=== PATIENT | male | born 1940 | race Caucasian/White ===

== ENCOUNTER 2016-03-10 13:01 | Observation (INO) | payer OTHER ==
[2016-03-10] MEDS ORDERED: NS 1,000 ML IV ONE ×2 (13:36→15:03)
[2016-03-10 13:41] LABS: % IMMATURE GRANULYOCYTES 0.8 % (0.0-1.1); ABSOLUTE IMMATURE GRANULOCYTES 0.06 10^3/uL (0.00-0.10); ADD DIFF? NO; ADD MORPH? NO; ADD SCAN? NO; ATYPICAL LYMPHOCYTE FLAG 0 (0-99); FRAGMENT RBC FLAG 0 (0-99); HEMATOCRIT 38.1 % (40.0-51.0); HEMOGLOBIN 12.8 g/dL (13.7-17.5); LEFT SHIFT FLG 0 (0-99); LIPEMIA HEMOLYSIS FLAG 80 (0-99); MEAN CELL HEMOGLOBIN 32.2 pg (27.9-34.1); MEAN CELL HEMOGLOBIN CONCENTR. 33.6 g/dL (32.4-36.7); PLATELET CLUMPS FLAG 10 (0-99); PLATELET COUNT 90 10^3/uL (150-400); RED BLOOD CELL COUNT 3.97 10^6/uL (4.40-6.38)
[2016-03-10 14:06] LABS: ALANINE AMINOTRANSFERASE 53 IU/L (21-72); ALBUMIN 3.2 g/dL (3.5-5.0); ALKALINE PHOSPHATASE 49 IU/L (38-126); ANION GAP 8 mEq/L (8-16); ASPARTATE AMINOTRANSFERASE 45 IU/L (17-59); BILIRUBIN-CONJUGATED 0.3 mg/dL (0.0-0.5); BILIRUBIN-UNCONJUGATED 0.7 mg/dL (0.0-1.1); CARBON DIOXIDE 24 mEq/l (22-31); CHLORIDE 103 mEq/L (97-110); CREATININE 1.4 mg/dL (0.7-1.3); GLOMERULAR FILTRATION RATE 50; GLUCOSE 127 mg/dL (70-100); POTASSIUM 4.2 mEq/L (3.5-5.2); SODIUM 135 mEq/L (134-144); TOTAL PROTEIN 6.3 g/dL (6.3-8.2)
--- NOTE | 2016-03-10 14:19 | EDPHY ---
H & P Stated Complaint: nausea/weakness/diarrhea Source: Patient, Family Exam Limitations: No limitations - Personal History Current Tetanus/Diphtheria Vaccine: Yes - Medical/Surgical History Hx Asthma: No Hx Chronic Respiratory Disease: No Hx Diabetes: No Hx Cardiac Disease: No Hx Renal Disease: No Hx Cirrhosis: No Hx Alcoholism: No Hx HIV/AIDS: No Hx Splenectomy or Spleen Trauma: No Other PMH: COLECTOMY DUE [place] CA, RA, MULTIPLE INGUINAL HERNIAS, L3-L4 SPINAL INFUSION,DVT AND PE - Social History Smoking Status: Former smoker HPI/ROS: CHIEF COMPLAINT: Chills, weakness, diarrhea HISTORY OF PRESENT ILLNESS: sudden onset of chills 2 days ago. Since then he has had intermittent chills, weakness, myalgia and diarrhea that started last night. The diarrhea is profuse to him and watery. No fever. No abdominal pain. No headache or neck pain. Some cough. Multiple coworkers with positive flu test recently. He has no chest pain or shortness of breath. No joint pain or stiffness. He does have a history of colon cancer remotely, with approximately half of his colon removed. No bloody stools. No constipation. No other associated complaints or modifying factors. PREVIOUS ABDOMINAL SURGERIES/DIAGNOSES: Remote colon cancer status post partial colectomy NPO: last night REVIEW OF SYSTEMS: Ten systems reviewed and are negative unless otherwise noted in the HPI EXAMINATION: General Appearance: Alert, no distress Head: normocephalic, atraumatic Eyes: Pupils equal and round, no conjunctival pallor or injection ENT, Mouth: Mucous membranes moist Neck: Normal inspection, supple, non-tender Respiratory: Lungs are clear to auscultation Cardiovascular: Regular rate and rhythm Gastrointestinal: Abdomen is soft and nontender. No tympany. No rigidity. Non- acute abdomen. Back: non-tender, no bony abnormalities Neurological: A&O, nonfocal, normal gait Skin: Warm and dry, no rash Extremities: Nontender, no pedal edema Psychiatric: Mood and affect normal DIFFERENTIAL DIAGNOSES: Including but not limited to dehydration, influenza, diarrhea, weakness, viral illness, gastroenteritis MDM: 2:00 p.m. weakness with chills, body aches, and diarrhea. This was 2-3 days in duration. The patient's vital signs are well within normal limits. He is in no acute distress. He has minimal cough. Lungs are clear in all [place]. Laboratory studies and flu test are pending at this time 3:00 p.m. labs are positive for evidence of dehydration as well as influenza A. Is feeling no better than time of arrival. We are administering a 2nd L of IV fluid. He continues to have diarrhea, but he is unable to make it to the bedside commode to provide a sample. Vital signs are stable but he is not feeling any better at this time. Continue IV fluid resuscitation and re- evaluation 4:28 p.m. I have re-evaluated the patient. He is actually feeling worse on time of admission to the emergency department. We have administered IV fluid is not improved. Vital signs remained stable and he is in no acute distress, but I will proceed with admission for IV fluid resuscitation and further care. 4:30 p.m. I have discussed the case with the hospitalist, and Dr. Perales will admit the patient to her service. Patient and spouse are comfortable this plan, and we are still attempting to obtain a stool sample for a GI pathogen profile. ED Precautions: Worsening pain. Fever. Bloody stools. Bloody emesis. Constipation or diarrhea. SUPERVISION:This patient was independently evaluated without the aide of supervising physician. (Keron Mullins) Constitutional: Initial Vital Signs Temperature (C) 37.1 C 03/10/16 13:08 Heart Rate 78 03/10/16 13:08 Respiratory Rate 18 03/10/16 13:08 Blood Pressure 114/66 03/10/16 13:08 O2 Sat (%) 93 03/10/16 13:08 O2 Delivery Mode Nasal Cannula O2 (L/minute) 2 Allergies/Adverse Reactions: No Allergies [NKDA] Allergy (Verified 09/22/15 16:12) Home Medications: Medication Instructions Recorded Leflunomide [Arava 20 mg (*)] 20 mg PO DAILY 06/27/14 Lisinopril [Zestril 10 mg (*)] 10 mg PO DAILY 06/27/14 Temazepam [Restoril 15 MG (*)] 15 mg PO HS PRN 06/27/14 Terazosin HCl [Hytrin 2 MG (*)] 6 mg PO HS 06/27/14 Methotrexate Sodium/Pf 0 mg IJ SA@0800 06/28/14 [Methotrexate 25 mg/ml Vial] Herbals/Supplements -Info Only 1 ea PO DAILY 09/22/15 Albuterol Hfa Anes Only [Proair 1 - 2 puffs IH QID PRN 03/10/16 Hfa Icu (*)] Finasteride [Proscar 5 MG (*)] 5 mg PO DAILY 03/10/16 predniSONE 4 mg PO DAILY 03/10/16 predniSONE 10 mg PO DAILY 03/10/16 Medical Decision Making ED Course/Re-evaluation: A I did not see this patient while he was in the emergency department. However his care was discussed with the PA while the patient was in the department. I agree with treatment plan and management (Demetri White) - Data Points Laboratory Results: Laboratory Results 03/10/16 13:37 03/10/16 13:30 03/10/16 03/10/16 03/10/16 14:25 13:37 13:30 WBC 7.42 10^3/uL (3.80-9.50) RBC 3.97 L 10^6/uL (4.40-6.38) Hgb 12.8 L g/dL (13.7-17.5) Hct 38.1 L % (40.0-51.0) MCV 96.0 fL (81.5-99.8) MCH 32.2 pg (27.9-34.1) MCHC 33.6 g/dL (32.4-36.7) RDW 18.0 H % (11.5-15.2) Plt Count 90 L 10^3/uL (150-400) MPV 11.0 fL (8.7-11.7) Neut % (Auto) 85.7 H % (39.3-74.2) Lymph % (Auto) 8.2 L % (15.0-45.0) Lamar % (Auto) 5.0 % (4.5-13.0) Eos % (Auto) 0.0 L % (0.6-7.6) Baso % (Auto) 0.3 % (0.3-1.7) Nucleat RBC Rel Count 0.0 % (0.0-0.2) Absolute Neuts (auto) 6.36 10^3/uL (1.70-6.50) Absolute Lymphs (auto) 0.61 L 10^3/uL (1.00-3.00) Absolute Monos (auto) 0.37 10^3/uL (0.30-0.80) Absolute Eos (auto) 0.00 L 10^3/uL (0.03-0.40) Absolute Basos (auto) 0.02 10^3/uL (0.02-0.10) Absolute Nucleated RBC 0.00 10^3/uL (0-0.01) Immature Gran % 0.8 % (0.0-1.1) Immature Gran # 0.06 10^3/uL (0.00-0.10) Sodium 135 mEq/L (134-144) Potassium 4.2 mEq/L (3.5-5.2) Chloride 103 mEq/L (97-110) Carbon Dioxide 24 mEq/l (22-31) Anion Gap 8 mEq/L (8-16) BUN 28 H mg/dL (7-23) Creatinine 1.4 H mg/dL (0.7-1.3) Estimated GFR 50 Glucose 127 H mg/dL (70-100) Calcium 8.0 L mg/dL (8.5-10.4) Total Bilirubin 1.0 mg/dL (0.1-1.4) Conjugated Bilirubin 0.3 mg/dL (0.0-0.5) Unconjugated Bilirubin 0.7 mg/dL (0.0-1.1) AST 45 IU/L (17-59) ALT 53 IU/L (21-72) Alkaline Phosphatase 49 IU/L (38-126) Total Protein 6.3 g/dL (6.3-8.2) Albumin 3.2 L g/dL (3.5-5.0) Lipase 45.0 IU/L (23-300) Urine Color YELLOW Urine Appearance HAZY Urine pH 5.0 (5.0-7.5) Ur Specific [place] 1.019 (1.002-1.030) Urine Protein 1+ H (NEGATIVE) Urine Ketones 1+ H (NEGATIVE) Urine Blood 2+ H (NEGATIVE) Urine Nitrate NEGATIVE (NEGATIVE) Urine Bilirubin NEGATIVE (NEGATIVE) Urine Urobilinogen NEGATIVE EU (0.2-1.0) Ur Leukocyte Esterase NEGATIVE (NEGATIVE) Urine RBC 5-10 H /hpf (0-3) Urine WBC 1-3 /hpf (0-3) Ur Epithelial Cells TRACE /lpf (NONE-1+) Urine Bacteria TRACE H /hpf (NONE SEEN) Urine Mucus TRACE /lpf (NONE-1+) Ur Culture Indicated? NOT INDICATED (NI) Urine Glucose NEGATIVE (NEGATIVE) Influenza Typ A,B (DFA) POSITIVE FOR FLU A H (NEGATIVE) Medications Given: Discontinued Medications Sodium Chloride (Ns) 1,000 mls @ 0 mls/hr IV ONCE ONE PRN Reason: Wide Open Stop: 03/10/16 13:37 Last Admin: 03/10/16 13:37 Dose: 1,000 mls Sodium Chloride (Ns) 1,000 mls @ 0 mls/hr IV ONCE ONE PRN Reason: Wide Open Stop: 03/10/16 15:04 Last Admin: 03/10/16 15:05 Dose: 1,000 mls Departure - Departure Disposition: [facility] Acute Clinical Impression: Diarrhea, Diarrhea with dehydration Condition: Good
[2016-03-10 14:46] LABS: COLOR YELLOW; LEUKOCYTE ESTERASE,URINE NEGATIVE (NEGATIVE); NITRITE,URINE NEGATIVE (NEGATIVE)
[2016-03-10 14:50] LABS: BACTERIA TRACE /hpf (NONE SEEN); MUCUS TRACE /lpf (NONE-1+)
[2016-03-10] MEDS ORDERED: ONDANSETRON 4 MG/2 ML VIAL IVP PRN (18:57)
[2016-03-10] MEDS ORDERED: ACETAMINOPHEN 325 MG TAB PO PRN (18:57)
[2016-03-10] MEDS ORDERED: NS 1,000 ML IV SCH (19:00)
[2016-03-10] MEDS: OSELTAMIVIR PHOSPHATE 75 MG CAP PO SCH (19:43)
[2016-03-10] MEDS ORDERED: TEMAZEPAM 15 MG CAP PO PRN (19:45)
[2016-03-10] MEDS ORDERED: HYDROCORTISONE 100 MG/2 ML VIAL IVP ONE (19:46)
--- NOTE | 2016-03-10 20:09 | GHP ---
[f rep st] HISTORY AND PHYSICAL DATE OF ADMISSION: 03/10/2016 CHIEF COMPLAINT: Chills and diarrhea. HISTORY: The patient is a 75-year-old male who 2 days ago developed very acute onset of severe chill s. He had myalgias. His main symptom is a profuse, watery, uncontrolled diarrhea. He has been inco ntinent. He has a little bit of cough. No abdominal pain. Many of his coworkers have recently been testing flu positive. PAST MEDICAL HISTORY: 1. Rheumatoid arthritis. 2. COPD. 3. Hypertension. 4. Colon cancer status post resection. PAST SURGICAL HISTORY: Ventral hernia repair. MEDICATIONS: Please see computer record for full detailed list. ALLERGIES: No known drug allergies. SOCIAL HISTORY: Smoker in the past but not currently. No alcohol. 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 Lives with his . REVIEW OF SYSTEMS: Complete review of systems obtained. Review of systems is negative on constituti onal, HEENT, GI, pulmonary, cardiovascular, , hematology, skin, musculoskeletal, endocrine, psych, except for positives and negatives as in HPI. FAMILY HISTORY: Reviewed, noncontributory to presenting complaint. PHYSICAL EXAMINATION: GENERAL: Well-developed, well-nourished male in no acute distress. VITAL SIG NS: Temperature is 37.1, pulse 68, blood pressure 132/62, saturating 93% on room air. EYE: Normal conjunctivae. Pupils equal and reactive to light. ENT: Normal ears and nose. Hearing intact. Nor mal lips and teeth. Oropharynx moist. NECK: Trachea midline. No thyromegaly. CHEST: Normal resp iratory effort. LUNGS: Clear to auscultation bilaterally. CARDIOVASCULAR: Regular rate and rhythm . No murmur. No lower extremity edema. ABDOMEN: Soft, nontender. No hepatosplenomegaly. SKIN: Warm, dry, intact. No rash. MUSCULOSKELETAL: No cyanosis or clubbing. Strength 5/5 upper and lowe r extremities. NEURO: Cranial nerves intact. Normal sensation light touch. PSYCH: Alert and orie nted x3. Normal mood and affect. Normal judgment and insight. Normal memory. LABORATORY DATA: White count 7.42, hematocrit 38, platelets of 90. Sodium 135, potassium 4.2, chlor suraj 103, bicarb 24, BUN 28, creatinine 1.4, glucose 127. LFTs are negative. Urinalysis is negative. Influenza is positive. ASSESSMENT/PLAN: 1. Influenza A. We will start him on Tamiflu. 2. Diarrhea. I suspect this is due to the influenza. His GI pathogen PCR is pending. 3. Rheumatoid arthritis. He is chronically immunosuppressed. Home medications have not yet been re conciled. I believe he is on chronic steroids which may require a stress dose while he is acutely il l. 4. Acute renal failure. I suspect he is dry. We will hydrate overnight with IV fluids and recheck. COR STATUS: Full. ADMISSION STATUS: We will admit to observation and reassess in the a.m. whether or not he is stable enough for discharge. DVT PROPHYLAXIS: He is high risk. We will place him on subcu Lovenox. /[id number]/MODL
[2016-03-10] MEDS ORDERED: TERAZOSIN HCL 2 MG CAP PO SCH (21:00)
[2016-03-11 01:38] VITALS: RESP 18
[2016-03-11 05:18] LABS: % IMMATURE GRANULYOCYTES 0.9 % (0.0-1.1); ABSOLUTE IMMATURE GRANULOCYTES 0.03 10^3/uL (0.00-0.10); ADD DIFF? NO; ADD MORPH? NO; ADD SCAN? NO; ATYPICAL LYMPHOCYTE FLAG 0 (0-99); FRAGMENT RBC FLAG 0 (0-99); HEMATOCRIT 32.7 % (40.0-51.0); HEMOGLOBIN 10.5 g/dL (13.7-17.5); LEFT SHIFT FLG 10 (0-99); LIPEMIA HEMOLYSIS FLAG 80 (0-99); MEAN CELL HEMOGLOBIN 31.1 pg (27.9-34.1); MEAN CELL HEMOGLOBIN CONCENTR. 32.1 g/dL (32.4-36.7); MEAN CELL VOLUME 96.7 fL (81.5-99.8); MEAN PLATELET VOLUME 10.9 fL (8.7-11.7); PLATELET CLUMPS FLAG 10 (0-99); PLATELET COUNT 79 10^3/uL (150-400); RED BLOOD CELL COUNT 3.38 10^6/uL (4.40-6.38); RED CELL DISTRIBUTION WIDTH 18.3 % (11.5-15.2)
[2016-03-11 05:32] LABS: ANION GAP 3 mEq/L (8-16); CALCIUM 6.2 mg/dL (8.5-10.4); CARBON DIOXIDE 19 mEq/l (22-31); CHLORIDE 117 mEq/L (97-110); GLOMERULAR FILTRATION RATE > 60; GLUCOSE 143 mg/dL (70-100); MAGNESIUM 1.8 mg/dL (1.6-2.3); POTASSIUM 3.9 mEq/L (3.5-5.2); SODIUM 139 mEq/L (134-144)
[2016-03-11] MEDS ORDERED: ALBUTEROL 60 PUFFS/8 GM MDI IH PRN (07:04)
[2016-03-11] MEDS ORDERED: ALBUTEROL 3 ML DEYVIAL IH PRN (07:04)
[2016-03-11] MEDS ORDERED: predniSONE 1 MG TAB PO SCH (09:00)
[2016-03-11] MEDS ORDERED: FINASTERIDE 5 MG TAB PO SCH (09:00)
[2016-03-11] MEDS ORDERED: ENOXAPARIN 40 MG/0.4 ML SYR SC SCH (09:00)
[2016-03-11] MEDS ORDERED: predniSONE 5 MG TAB PO SCH (09:00)
[2016-03-11] MEDS ORDERED: LEFLUNOMIDE 20 MG TAB PO SCH (09:00)
[2016-03-11] MEDS: OSELTAMIVIR PHOSPHATE 75 MG CAP PO SCH (09:48)
[2016-03-11 12:00] VITALS: BP 129/71; PULSE 59; TEMP 98.4; O2SAT 95
[2016-03-11] MEDS ORDERED: DIPHENOXYLATE/ATROPINE LOMOTIL 1 TAB PO PRN (12:41)
--- NOTE | 2016-03-11 13:12 | GDS ---
[f rep st] DISCHARGE SUMMARY DIAGNOSES: 1. Acute influenza A infection. 2. History of rheumatoid arthritis. 3. Pancytopenia, mild. 4. Mild acidosis. 5. Recent diarrhea. 6. History of colon cancer, status post resection. 7. History of chronic obstructive pulmonary disease. HOSPITAL COURSE: A 75-year-old man presented with acute influenza A infection. He has had myalgias, cough, as well as profuse watery uncontrolled diarrhea. Treated with Tamiflu. On the day of discha rge, he feels much better. He is able to ambulate, take care of himself. He is eating and toleratin g full meals. He will be discharged with a treatment dose of Tamiflu. I have also given his pr ophylactic dose of Tamiflu. He will be discharged to home with his in stable condition. /[id number]/MODL
== END 2016-03-11 14:25 | disposition home or self-care (01) ==
LOC: INTOOBSV 16:30 → F3E 17:29
PROVIDERS: ADMIT Internal Medicine; ATTEND Student in an Organized Health Care Education/Training Program
DX: J11.1 Influenza due to unidentified influenza virus with other respiratory manifestations (principal); M06.9 Rheumatoid arthritis, unspecified; D61.818 Other pancytopenia; E87.2 Acidosis; R19.7 Diarrhea, unspecified; J44.9 Chronic obstructive pulmonary disease, unspecified; N17.9 Acute kidney failure, unspecified; Z85.038 Personal history of other malignant neoplasm of large intestine; Z90.49 Acquired absence of other specified parts of digestive tract; Z87.891 Personal history of nicotine dependence
CPT/HCPCS: 96360; 96361; 97161; 97165; 99285; G0378; G8978; G8979; G8980; G8987; G8988; G8989; J1650

== ENCOUNTER 2017-02-24 05:56 | Inpatient (IN) | payer OTHER ==
[2017-02-21 16:26] LABS: PLATELET COUNT 98 10^3/uL (150-400)
--- NOTE | 2017-02-22 08:26 | CPEKG ---
Heart Rate: 55 RR Interval: 1091 P-R Interval: 224 QRSD Interval: 124 QT Interval: 444 QTC Interval: 425 P [place]: 39 QRS [place]: 2 T Wave [place]: 5 EKG Severity - ABNORMAL ECG - EKG Impression: SINUS RHYTHM EKG Impression: FIRST DEGREE AV BLOCK EKG Impression: RIGHT BUNDLE BRANCH BLOCK Electronically Signed By: Cristobal Pierre 26-Feb-2017 10:31:57
[~2017-02-24 05:56] MED LIST: ceFAZolin 2 GM/SWFI 2 GM/20 ML SYR IVP ONE
[2017-02-24] MEDS ORDERED: ceFAZolin 2 GM/SWFI 2 GM/20 ML SYR IVP ONE (06:01)
[2017-02-24] MEDS ORDERED: LR 1,000 ML IV ONE (06:02)
[2017-02-24] MEDS ORDERED: LIDOCAINE 1% 2 ML INJ ID PRN (06:02)
[2017-02-24] MEDS ORDERED: BUPIVACAINE 0.5% 30 ML SDV ONE (06:58)
--- NOTE | 2017-02-24 07:08 | PDANEPAE ---
ANE History of Present Illness Patient presents for ventral hernia repair ANE Past Medical History - Cardiovascular History Hx Hypertension: Yes Hx Arrhythmias: No Hx Chest Pain: No Hx Coronary Artery / Peripheral Vascular Disease: No Hx CHF / Valvular Disease: No Hx Palpitations: No Cardiovascular History Comment: murmur - Pulmonary History Hx COPD: Yes Hx Asthma/Reactive Airway Disease: No Hx Recent Upper Respiratory Infection: No Hx Oxygen in Use at Home: No Hx Sleep Apnea: No Sleep Apnea Screening Result - Last Documented: Positive Pulmonary History Comment: PE - Neurologic History Hx Cerebrovascular Accident: No Hx Seizures: No Hx Dementia: No - Endocrine History Hx Diabetes: No - Renal History Hx Renal Disorders: Yes Renal History Comment: bph - Liver History Hx Hepatic Disorders: No - Neurological & Psychiatric Hx Hx Neurological and Psychiatric Disorders: No - Cancer History Hx Cancer: Yes Cancer History Comment: colon - Congenital Disorder History Hx Congenital Disorders: No - GI History Hx Gastrointestinal Disorders: Yes Gastrointestinal History Comment: colon ca - Other Health History Other Health History: missing teeth. rhematid arthritis - controlled - Chronic Pain History Chronic Pain: No (ra controlle) - Surgical History Prior Surgeries: 09/24/15 VENTRAL HERNIA REPAIR. mult hernia surg 01/23/15, with dr velarde. colectomy 6 y ago. lami/fusion 09/2009. dental implant ANE Review of Systems Review of Systems: - Exercise capacity METS (RN): 3 METS ANE Patient History - Allergies Allergies/Adverse Reactions: No Allergies [NKDA] Allergy (Verified 09/22/15 16:12) - Home Medications Home medications: home medication list seen and reviewed Home Medications: Leflunomide [Arava 20 mg (*)] 20 mg PO DAILY 06/27/14 [Last Taken 09/23/15 20:00 ] Lisinopril [Zestril 10 mg (*)] 10 mg PO DAILY 06/27/14 [Last Taken 09/23/15 20: 00] Temazepam [Restoril 15 MG (*)] 15 mg PO HS PRN 06/27/14 [Last Taken 09/23/15 20: 00] Terazosin HCl [Hytrin 2 MG (*)] 6 mg PO HS 06/27/14 [Last Taken 09/23/15 20:00] Methotrexate Sodium/Pf [Methotrexate 25 mg/ml Vial] 0 mg IJ SA@0800 06/28/14 [ Last Taken 09/22/15] Herbals/Supplements -Info Only 1 ea PO DAILY 09/22/15 [Last Taken 09/22/15] Albuterol Hfa Anes Only 02/20/17 [Last Taken Unknown] Proair Hfa 02/20/17 [Last Taken Unknown] - NPO status NPO Status: no food or drink >8 hours NPO Since - Liquids (Date): 02/24/17 NPO Since - Liquids (Time): 00:01 NPO Since - Solids (Date): 02/23/17 NPO Since - Solids (Time): 19:00 - Anes Hx Anes Hx: no prior problems - Smoking Hx Smoking Status: Former smoker - Family Anes Hx Family Hx Anesthesia Complications: none ANE Labs/Vital Signs - Labs Result Diagrams: 02/21/17 15:55 - Vital Signs Blood Pressure: 120/70 Heart Rate: 65 Respiratory Rate: 16 O2 Sat (%): 91 Height: 180.34 cm Weight: 90.718 kg ANE Physical Exam - Airway Neck exam: FROM Mallampati Score: Class 2 Mouth exam: normal dental/mouth exam, rosas - Pulmonary Pulmonary: no respiratory distress - Cardiovascular Cardiovascular: regular rate and rhythym - ASA Status ASA Status: III ANE Anesthesia Plan Anesthesia Plan: general endotracheal anesthesia (RBA discussed)
[2017-02-24] MEDS ORDERED: fentaNYL 100 MCG/2 ML INJ ONE ×2 (07:09→08:21)
[2017-02-24] MEDS ORDERED: PROPOFOL 200 MG/20 ML VIAL ONE (07:10)
[2017-02-24] MEDS ORDERED: DEXAMETHASONE 4 MG/ML VIAL ONE (07:13)
[2017-02-24] MEDS ORDERED: ROCURONIUM 100 MG/10 ML VIAL ONE (07:13)
[2017-02-24] MEDS ORDERED: ONDANSETRON 4 MG/2 ML VIAL ONE (07:13)
[2017-02-24] MEDS ORDERED: PHENYLEPHRINE HCL 100 MCG/ML SYR ONE (07:38)
[2017-02-24] MEDS ORDERED: HYDROmorphONE/DILAUDID 2 MG/ML INJ ONE (09:13)
[2017-02-24] MEDS ORDERED: clonIDINE 1 MG/10 ML VIAL EP ONE (09:35)
[2017-02-24] MEDS ORDERED: SUGAMMADEX SODIUM 200 MG/2 ML VIAL IVP ONE (09:35)
[2017-02-24] MEDS ORDERED: OXYCODONE/APAP 5/325 TAB PO PRN (10:11)
[2017-02-24] MEDS ORDERED: NALOXONE HCL 0.4 MG/ML INJ IVP PRN ×2 (10:11→15:52)
[2017-02-24] MEDS ORDERED: fentaNYL 100 MCG/2 ML INJ IVP PRN (10:11)
[2017-02-24] MEDS ORDERED: ONDANSETRON 4 MG/2 ML VIAL IVP PRN ×2 (10:11→10:14)
[2017-02-24] MEDS ORDERED: LR 500 ML IV PRN (10:11)
[2017-02-24] MEDS ORDERED: HYDROCODONE/APAP 5/325 TAB PO PRN (10:11)
[2017-02-24] MEDS ORDERED: HYDROmorphONE/DILAUDID 1 MG/ML INJ ONE ×3 (10:12→11:36)
--- NOTE | 2017-02-24 10:12 | POSTANESTH ---
Post Anesthetic Evaluation Cardiovascular Status: Similar to Pre-Op Cond Respiratory Status: Similar to Pre-op Cond. Level of Consciousness/Mental Status: Can Participate in Eval Pain Control: Adequate, Prn Tx Ordered Nausea/Vomiting Control: Adequate, Prn Tx Ordered Complications Possibly Related to Anesthesia: None Noted
[2017-02-24] MEDS ORDERED: ONDANSETRON DISINTEGRATING 4 MG TAB PO PRN (10:14)
[2017-02-24] MEDS: HYDROmorphONE/DILAUDID 1 MG/ML INJ IVP PRN ×8 (10:14→13:51)
--- NOTE | 2017-02-24 10:20 | POSTOPPROG ---
Post Op Note Date of Operation: 02/24/17 Surgeon: Amos Butt Velocity Shooter: SANDY Anesthesiologist: LIN Anesthesia: GET(General Endotracheal) Pre-op Diagnosis: RECURRENT VENTRAL HERNIA Post-op Diagnosis: SAME Indication: PAIN Procedure: OPEN RECURRENT VENTRAL HERNIA REPAIR WITH MESH Findings: COMPLEX MULTILOCULATED LARGE VENTRAL HERNIA WITH ATTENUATED FASCIA AND OLD Inf/Abcess present in the surg proc area at time of surgery?: No Depth: Organ Space EBL: 50-100 Complications: NONE Drains: Solitario Sorensen Specimen(s): HERNIA SAC
[2017-02-24] MEDS ORDERED: KETOROLAC 15 MG/1 ML SDV ONE (10:22)
[2017-02-24] MEDS: KETOROLAC 15 MG/1 ML SDV IVP SCH ×2 (10:28→19:39)
--- NOTE | 2017-02-24 10:38 | PDHPUP ---
History & Physical Update H&P update statement: This history and physical update is based on an assessment of the patient which was completed after admission or registration (within 24 hours), but prior to the surgery/procedure.
[2017-02-24] MEDS: D5W 1/2 NS W/ 20 KCl/L 1,000 ML IV SCH ×2 (11:03→23:10)
[2017-02-24] MEDS: HYDROmorphONE/DILAUDID 6 MG/30 ML PCA IV PRN (16:42)
[2017-02-24] MEDS ORDERED: ALBUTEROL 60 PUFFS/8 GM MDI IH PRN (20:44)
[2017-02-24] MEDS: TEMAZEPAM 15 MG CAP PO SCH (20:59)
[2017-02-24] MEDS: TERAZOSIN HCL 2 MG CAP PO SCH (21:54)
[2017-02-24] MEDS: OLODATEROL HCL IH SCH (21:54)
[2017-02-24] MEDS: TIOTROPIUM BR IH SCH (21:54)
[2017-02-24] MEDS: [UNRECOGNIZED DRUG - OTHER] IH SCH (21:54)
[2017-02-25] MEDS: KETOROLAC 15 MG/1 ML SDV IVP SCH ×5 (01:34→23:19)
[2017-02-25 05:34] LABS: PLATELET COUNT 116 10^3/uL (150-400)
[2017-02-25] MEDS: HYDROmorphONE/DILAUDID 6 MG/30 ML PCA IV PRN (06:27)
[2017-02-25] MEDS: D5W 1/2 NS W/ 20 KCl/L 1,000 ML IV SCH (09:18)
[2017-02-25] MEDS: LEFLUNOMIDE 20 MG TAB PO SCH (09:50)
[2017-02-25] MEDS: predniSONE 5 MG TAB PO SCH (09:50)
[2017-02-25] MEDS: LISINOPRIL 10 MG TAB PO SCH (09:50)
[2017-02-25] MEDS: FOLIC ACID 1 MG TAB PO SCH (09:51)
[2017-02-25] MEDS: OLODATEROL HCL IH SCH ×2 (09:54→19:53)
[2017-02-25] MEDS: TIOTROPIUM BR IH SCH ×2 (09:54→19:53)
[2017-02-25] MEDS: [UNRECOGNIZED DRUG - OTHER] IH SCH ×2 (09:54→19:53)
--- NOTE | 2017-02-25 12:14 | SOAPPROG ---
SOAP Progress Note Assessment/Plan: Assessment: STATUS POST VENTRAL HERNIA REPAIR/MINIMAL DRAINAGE/URINE OUTPUT OKAY/TOLERATING P.O./COMPLAINS OF PAIN AFEBRILE/VITAL SIGNS STABLE NEGATIVE BMS OR FLATUS/WOUND OKAY/ABDOMEN SOFT NONTENDER BUT SLIGHTLY DISTENDED Plan: CONTINUE PRESENT ORDERS 02/25/17 12:14 02/25/17 14:34 Objective: Vital Signs Temp Pulse Resp BP Pulse Ox 37.1 C 64 20 144/65 H 96 02/25/17 11:02 02/25/17 11:02 02/25/17 11:02 02/25/17 11:02 02/25/17 11:02 Laboratory Results 02/25/17 04:35 02/25/17 04:15 02/24/17 02/25/17 02/26/17 05:59 05:59 05:59 Intake Total 4700 Output Total 765 Balance 3935 ICD10 Worksheet Patient Problems: Problems Problem Status Onset Diarrhea Acute Diarrhea with dehydration Acute Incarcerated ventral hernia Acute Pneumonia Acute
--- NOTE | 2017-02-25 14:32 | ASMTCMCOM ---
CM Note CM Note Notes: Pt. is a 76-year-old man s/p a ventral hernia repair. OT recommending HC vs Home. PT not evaluated yet. Per chart, Pt. lives w/ his Blanca. CM to follow for d/c POC. Date Signed: 02/25/2017 02:31 PM Electronically Signed By:Radha Dunn LCSW
[2017-02-25] MEDS: ALBUTEROL IH PRN (18:26)
[2017-02-25] MEDS: MDI IH PRN (18:26)
[2017-02-25] MEDS: TEMAZEPAM 15 MG CAP PO SCH (19:57)
[2017-02-25] MEDS: TERAZOSIN HCL 2 MG CAP PO SCH (19:58)
[2017-02-26] MEDS: KETOROLAC 15 MG/1 ML SDV IVP SCH ×3 (05:59→18:06)
--- NOTE | 2017-02-26 09:01 | SOAPPROG ---
SOAP Progress Note Assessment/Plan: Assessment: STATUS POST VENTRAL HERNIA REPAIR/MINIMAL DRAINAGE/URINE OUTPUT OKAY/TOLERATING P.O./COMPLAINS OF PAIN AFEBRILE/VITAL SIGNS STABLE NEGATIVE BMS OR FLATUS/WOUND OKAY/ABDOMEN SOFT NONTENDER BUT SLIGHTLY DISTENDED Plan: CONTINUE PRESENT ORDERS 02/25/17 12:14 02/25/17 14:34 02/26/17 09:00 wound ok/ binder in place/ poor appetite/ +flatus and bm/ afebrile/ vs stable/ uo good/ home 1-2 days/ starting to mobilize Objective: Vital Signs Temp Pulse Resp BP Pulse Ox 36.6 C 75 24 H 130/65 H 93 02/26/17 07:52 02/26/17 07:52 02/26/17 07:52 02/26/17 07:52 02/26/17 07:52 Laboratory Results 02/25/17 04:35 02/25/17 04:15 02/25/17 02/26/17 02/27/17 05:59 05:59 05:59 Intake Total 4700 1417 Output Total 760 795 Balance 3935 622 ICD10 Worksheet Patient Problems: Problems Problem Status Onset Diarrhea Acute Diarrhea with dehydration Acute Incarcerated ventral hernia Acute Pneumonia Acute
[2017-02-26] MEDS: HYDROmorphONE/DILAUDID 6 MG/30 ML PCA IV PRN ×2 (09:19→17:13)
[2017-02-26] MEDS: FOLIC ACID 1 MG TAB PO SCH (09:24)
[2017-02-26] MEDS: LEFLUNOMIDE 20 MG TAB PO SCH (09:24)
[2017-02-26] MEDS: predniSONE 5 MG TAB PO SCH (09:25)
[2017-02-26] MEDS: LISINOPRIL 10 MG TAB PO SCH (09:25)
[2017-02-26] MEDS: OLODATEROL HCL IH SCH ×2 (10:31→20:59)
[2017-02-26] MEDS: TIOTROPIUM BR IH SCH ×2 (10:31→20:59)
[2017-02-26] MEDS: [UNRECOGNIZED DRUG - OTHER] IH SCH ×2 (10:31→20:59)
--- NOTE | 2017-02-26 11:06 | ASMTCMCOM ---
CM Note CM Note Notes: Chart reviewed. Patient is s/p ventral hernia repair. Per therapies HHC recommended. Spoke with patient regarding recommendations and he declines HHC at this point. CM available should other needs arise. Date Signed: 02/26/2017 11:06 AM Electronically Signed By:Ramya Avelar RN
[2017-02-26] MEDS: diphenhydrAMINE 25 MG CAP PO PRN (14:51)
[2017-02-26] MEDS ORDERED: D5W 1/2 NS 1,000 ML IV SCH (15:30)
[2017-02-26] MEDS: TEMAZEPAM 15 MG CAP PO SCH (20:58)
[2017-02-26] MEDS: TERAZOSIN HCL 2 MG CAP PO SCH (20:58)
[2017-02-26] MEDS: MDI IH PRN (20:59)
[2017-02-26] MEDS: ALBUTEROL IH PRN (20:59)
[2017-02-27] MEDS: KETOROLAC 15 MG/1 ML SDV IVP SCH ×5 (01:05→23:39)
[2017-02-27] MEDS: LISINOPRIL 10 MG TAB PO SCH (08:35)
[2017-02-27] MEDS: OXYCODONE/APAP 5/325 TAB PO PRN ×3 (08:36→20:08)
[2017-02-27] MEDS: FOLIC ACID 1 MG TAB PO SCH (08:36)
[2017-02-27] MEDS: LEFLUNOMIDE 20 MG TAB PO SCH (08:36)
[2017-02-27] MEDS: predniSONE 5 MG TAB PO SCH (08:36)
[2017-02-27] MEDS ORDERED: MAGNESIUM HYDROXIDE 30 ML UDCUP PO PRN (09:17)
[2017-02-27] MEDS ORDERED: BISACODYL 10 MG SUPP PR PRN (09:17)
[2017-02-27] MEDS ORDERED: LACTULOSE 20 GM/30 ML UDCUP PO PRN (09:17)
--- NOTE | 2017-02-27 09:40 | SOAPPROG ---
SOAP Progress Note Assessment/Plan: Assessment/Plan: 76 Y M s/p recurrent ventral hernia repair, POD#3. Seen by Dr. Butt. Wounds intact. Afebrile. Regular diet. OOB, PT/OT. Bowel protocol. 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 Transition to PO pain meds. S: pain controlled. no BM. +flatus. tolerating diet. O: alert, nad no wob abd soft, inc cdi, hernia repair intact 02/27/17 09:39 Objective: Vital Signs Temp Pulse Resp BP Pulse Ox 36.8 C 75 13 120/62 95 02/27/17 07:43 02/27/17 07:43 02/27/17 07:43 02/27/17 08:35 02/27/17 07:43 Laboratory Results 02/25/17 04:35 02/25/17 04:15 02/26/17 02/27/17 02/28/17 05:59 05:59 05:59 Intake Total 1417 2179 Output Total 795 540 14 Balance 622 1639 -14 ICD10 Worksheet Patient Problems: Problems Problem Status Onset Diarrhea Acute Diarrhea with dehydration Acute Incarcerated ventral hernia Acute Pneumonia Acute
[2017-02-27] MEDS: OLODATEROL HCL IH SCH ×2 (10:00→19:50)
[2017-02-27] MEDS: [UNRECOGNIZED DRUG - OTHER] IH SCH ×2 (10:00→19:50)
[2017-02-27] MEDS: TIOTROPIUM BR IH SCH ×2 (10:00→19:50)
[2017-02-27] MEDS: POLYETHYLENE GLYCOL 3350 17 GM PKT PO PRN (13:16)
[2017-02-27] MEDS: TERAZOSIN HCL 2 MG CAP PO SCH (20:08)
[2017-02-27] MEDS: SENNOSIDES/DOCUSATE SODIUM TAB PO SCH (20:08)
[2017-02-27] MEDS: TEMAZEPAM 15 MG CAP PO SCH (20:11)
[2017-02-28] MEDS: KETOROLAC 15 MG/1 ML SDV IVP SCH ×4 (04:53→16:45)
[2017-02-28] MEDS: OXYCODONE/APAP 5/325 TAB PO PRN (07:43)
[2017-02-28] MEDS: SENNOSIDES/DOCUSATE SODIUM TAB PO SCH ×2 (09:40→20:33)
[2017-02-28] MEDS: FOLIC ACID 1 MG TAB PO SCH (09:40)
[2017-02-28] MEDS: LEFLUNOMIDE 20 MG TAB PO SCH (09:40)
[2017-02-28] MEDS: predniSONE 5 MG TAB PO SCH (09:40)
[2017-02-28] MEDS: LISINOPRIL 10 MG TAB PO SCH (09:43)
[2017-02-28] MEDS: TIOTROPIUM BR IH SCH (10:07)
[2017-02-28] MEDS: [UNRECOGNIZED DRUG - OTHER] IH SCH (10:07)
[2017-02-28] MEDS: OLODATEROL HCL IH SCH (10:07)
[2017-02-28] MEDS: Tiotropium Br/Olodaterol Hcl [Stiolto Respimat Inhal Spray] 4 GM IH SCH ×2 (10:27→21:36)
--- NOTE | 2017-02-28 10:44 | SOAPPROG ---
SOAP Progress Note Assessment/Plan: Assessment/Plan: 76 Y M s/p recurrent ventral hernia repair, POD#4. Overall doing fine, but slow to mobilize. Wounds intact. Afebrile. Regular diet. OOB, PT/OT. Bowel protocol--no BM yet. 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 Transition to PO pain meds. Dispo: more open to the idea of SNF or home care. feels like this is the hardest surgery he's been through 2/2 pain. S: No BM yet. +flatus. Tired. O: alert, nad ctab rrr abd soft, inc cdi, hernia repair intact 02/28/17 10:41 Objective: Vital Signs Temp Pulse Resp BP Pulse Ox 36.8 C 78 18 91/58 L 92 02/28/17 08:00 02/28/17 08:00 02/28/17 08:00 02/28/17 09:43 02/28/17 08:00 Laboratory Results 02/25/17 04:35 02/25/17 04:15 02/27/17 02/28/17 03/01/17 05:59 05:59 05:59 Intake Total 2179 600 Output Total 540 784 Balance 1639 -184 ICD10 Worksheet Patient Problems: Problems Problem Status Onset Diarrhea Acute Diarrhea with dehydration Acute Incarcerated ventral hernia Acute Pneumonia Acute
--- NOTE | 2017-02-28 12:05 | ASMTCMCOM ---
CM Note CM Note Notes: CM spoke w/ TERI Courtney and KUMAR Shaikh regarding d/c POC. CM met w/ pt for dispo planning. Pt is not interested in SNF or HC at this time. Pt reports that he it would be helpful for him to get back on his own schedule. Pt will notify CM if he changes his mind. CM available for changes. Plan: Independent Date Signed: 02/28/2017 12:05 PM Electronically Signed By:TREVIN Lora
[2017-02-28] MEDS: ALBUTEROL IH PRN (16:40)
[2017-02-28] MEDS: MDI IH PRN (16:40)
[2017-02-28] MEDS: POLYETHYLENE GLYCOL 3350 17 GM PKT PO PRN (20:32)
[2017-02-28] MEDS: TEMAZEPAM 15 MG CAP PO SCH (20:33)
[2017-02-28] MEDS: TERAZOSIN HCL 2 MG CAP PO SCH (20:33)
[2017-03-01] MEDS: KETOROLAC 15 MG/1 ML SDV IVP SCH ×2 (00:40→04:59)
[2017-03-01] MEDS: MDI IH PRN ×3 (04:59→14:03)
[2017-03-01] MEDS: ALBUTEROL IH PRN ×3 (04:59→14:03)
[2017-03-01] MEDS: Tiotropium Br/Olodaterol Hcl [Stiolto Respimat Inhal Spray] 4 GM IH SCH ×2 (08:36→20:09)
[2017-03-01] MEDS: LISINOPRIL 10 MG TAB PO SCH (08:49)
[2017-03-01] MEDS: FOLIC ACID 1 MG TAB PO SCH (08:49)
[2017-03-01] MEDS: predniSONE 5 MG TAB PO SCH (08:49)
[2017-03-01] MEDS: LEFLUNOMIDE 20 MG TAB PO SCH (08:49)
[2017-03-01] MEDS: SENNOSIDES/DOCUSATE SODIUM TAB PO SCH ×2 (08:57→22:36)
--- NOTE | 2017-03-01 11:22 | SOAPPROG ---
SOAP Progress Note Assessment/Plan: Assessment/Plan: 76 Y M s/p recurrent ventral hernia repair, POD#5. Overall doing fine, but still slow to mobilize. Wounds intact. Afebrile. Regular diet. OOB, PT/OT. Bowel protocol--had BM. Oral pain meds. 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 Dispo: difficult morning--two "explosive miralax moments." more open to the idea of SNF or home care. feels like this is the hardest surgery he's been through 2/2 pain. S: +BM. feels weak. O: alert, nad ctab rrr abd soft, inc cdi, hernia repair intact 03/01/17 11:20 Objective: Vital Signs Temp Pulse Resp BP Pulse Ox 36.4 C 74 18 137/64 H 94 03/01/17 08:00 03/01/17 08:30 03/01/17 08:30 03/01/17 08:49 03/01/17 08:30 Laboratory Results 02/25/17 04:35 02/25/17 04:15 02/28/17 03/01/17 03/02/17 05:59 05:59 05:59 Intake Total 600 100 Output Total 784 570 Balance -184 -470 ICD10 Worksheet Patient Problems: Problems Problem Status Onset Diarrhea Acute Diarrhea with dehydration Acute Incarcerated ventral hernia Acute Pneumonia Acute
--- NOTE | 2017-03-01 13:02 | GOP ---
[f rep st] OPERATIVE REPORT DATE OF OPERATION: 02/24/2017 SURGEON: Amos Butt MD EXTRUSION PRESS SUPERVISOR: Dago Madison MD ANESTHESIOLOGIST: Dr. Redding. ANESTHESIA: General Endotracheal. PREOPERATIVE DIAGNOSIS: Recurrent ventral hernia. POSTOPERATIVE DIAGNOSIS: Recurrent ventral hernia. PROCEDURE PERFORMED: Open repair of recurrent ventral hernia with mesh. FINDINGS: Patient was found to have a giant recurrent midline abdominal hernia measuring over 15 cm in size. DESCRIPTION OF PROCEDURE: The patient was taken to the operating room where he received satisfactory general endotracheal anesthesia by Dr. Redding. He was placed in supine position, prepped and draped in usual sterile fashion. Midline incision was made through the previous old incision and dissection carried down to the hernia sac, which was encountered. This was dissected free from surrounding subcutaneous tissue and dissection extended laterally on both sides out to good reliable fascia. The sac was eventually opened. It was composed of a fairly thick hernia sac in some previous mesh, which had been used for previous repair. Edges of the sac were trimmed away back to good viable fascia and muscle. Multiple bowel adhesions were dissected free and reduced, and then, the incision was extended were necessary to include all the hernia sac. Old mesh was resected out of the hernia repair and the attenuated fascia was trimmed away back to good decent fascial tissue. A very large 35 x 23 piece of dual sided Covidien mesh was placed intra- abdominally subfascially. This was anchored well around the periphery to the pubic bone, over near the anterior iliac spines, and laterally and superiorly through the fascia. A separate incision was made to anchor the mesh superiorly through a small 1 cm incision. This mesh completely covered the lower abdomen. It was anchored around the whole periphery with multiple #1 Ethibond mattress sutures. Hemostasis was assured. The fascia, itself, was then closed in a [id number] 2-layer closure with interrupted #1 Ethibond mattress sutures, and then a second layer of a running 0 -PDS fascial suture. Wound was infiltrated with 0.5% Marcaine. Two 15 mm ALONDRA drains were brought out through separate stab incisions and secured to the skin with silk sutures. Subcutaneous was closed with a running 2-0 Vicryl suture. The wound was sprayed with some topical thrombin and the skin was closed with skin lisa. He tolerated the procedure quite well. Blood loss from the procedure was less than 75 cc. There were no complications. He was taken to the recovery room in good condition. /[id number]/MODL MTDD
[2017-03-01] MEDS: OXYCODONE/APAP 5/325 TAB PO PRN (14:01)
[2017-03-01 15:01] LABS: PLATELET COUNT 128 10^3/uL (150-400)
--- NOTE | 2017-03-01 16:37 | CPEKG ---
Heart Rate: 75 RR Interval: 800 P-R Interval: 176 QRSD Interval: 118 QT Interval: 412 QTC Interval: 461 P [place]: 37 QRS [place]: -26 T Wave [place]: -42 EKG Severity - ABNORMAL ECG - EKG Impression: SINUS RHYTHM EKG Impression: ATRIAL PREMATURE COMPLEX EKG Impression: INCOMPLETE RIGHT BUNDLE BRANCH BLOCK Electronically Signed By: Natasha Vargas 02-Mar-2017 13:37:58
[2017-03-01] MEDS ORDERED: FUROSEMIDE 20 MG/2 ML VIAL IVP ONE (18:36)
--- NOTE | 2017-03-01 19:00 | PDHOSCONS ---
Hospitalist Consult Hospitalist Consult: Referring Physician: Dr. Butt Reason for consultation: Malaise, isolated fever, abnormal troponin HPI: 76 yo male who had a ventral hernia repair who is on POD #5. He has not been progressing well postoperatively and has been complaining of generalized weakness and has had progressive hypoxemia. He has not had any chest pain. Troponin was obtained today and is c/w 0.158. He does not have any hx of CAD or CV disease. He does have a hx of nocturnal hypoxemia and is on 2 L chronically nocturnally. He is confused and hx is obtained from record and from his nurse. A repeat EKG is essentially unchanged from one week ago. He does not have acute ischemic changes. CXR does show vascular congestion and this was personally interpreted. He has pedal edema He had one isolated fever earlier today but none since. Hemodynamically he is stable. He is still on IVF. ROS: a 10 point review of systems is obtained and is positive per HPI otherwise negative PMHx: COPD,nocturnal hypoxemia, ventral hernia, RA, chronic immunosupression, chronic steroid use, colon cancer, HTN Soc hx: former tobacco user, no ETOH FmHx: NC Studies: CXR per above Labs reviewed O: VSS on 3 L o2 GEN: NAD, AAOX1 HEENT: NC, AT, PEERLA, EOMI NECK: + JVD CV: RRR LUNG: EXP WHEEZE, COARSE ABD: S/ND EXT: TRACE LE EDEMA NEURO: NO FOCAL WEAKNESS, CONFUSED SKIN: WARM I/P #POD #5 Ventral hernia repair #Acute Respiratory Failure #Pulmonary Vascular congestion and volume overload #COPD-E #abnormal troponin in setting of no chest pain and unremarkable EKG #Chronic steroid use, ?adrenal insufficiency #Chronic Immunosupression #RA #Leukocytosis #Post operative Anemia Plan: -Lasix x 1 now, determine clinical response, may need more. Hold IVF -Start steroid for COPD-E, which should also help if there is adrenal insufficiency -check procalcitonin and repeat labs tomorrow. I will not start abx at this time given isolated fever and no clear source. He is chronically immunosupressed and if steroids and lasix do not help, would have low threshold to start. -Repeat Trops, check TTE, consider cardiac consult pending w/u Thank you for this consult, we will follow along with you
[2017-03-01] MEDS ORDERED: methylPREDNISolone SOD SUCC 125 MG/2 ML VIAL IVP ONE (20:00)
[2017-03-01] MEDS: ALBUTEROL 3 ML DEYVIAL IH SCH ×2 (20:10→20:11)
[2017-03-01] MEDS: PIPERACILLIN/TAZO 3.375 GM/DEX 50 ML IV SCH (20:45)
[2017-03-01] MEDS: TERAZOSIN HCL 2 MG CAP PO SCH (21:50)
[2017-03-01] MEDS: TEMAZEPAM 15 MG CAP PO SCH (21:50)
[2017-03-02] MEDS ORDERED: PIPERACILLIN/TAZO 3.375 GM/DEX 50 ML IV SCH
[2017-03-02] MEDS: PIPERACILLIN/TAZO 3.375 GM/DEX 50 ML IV SCH ×4 (01:48→20:46)
[2017-03-02 05:20] LABS: PLATELET COUNT 140 10^3/uL (150-400)
[2017-03-02] MEDS: ALBUTEROL 3 ML DEYVIAL IH SCH ×4 (05:47→20:43)
[2017-03-02] MEDS: LISINOPRIL 10 MG TAB PO SCH (08:34)
[2017-03-02] MEDS: FOLIC ACID 1 MG TAB PO SCH (08:34)
[2017-03-02] MEDS: LEFLUNOMIDE 20 MG TAB PO SCH (08:34)
[2017-03-02] MEDS: predniSONE 5 MG TAB PO SCH (08:35)
[2017-03-02] MEDS: SENNOSIDES/DOCUSATE SODIUM TAB PO SCH ×2 (08:36→21:07)
[2017-03-02] MEDS: Tiotropium Br/Olodaterol Hcl [Stiolto Respimat Inhal Spray] 4 GM IH SCH ×2 (08:52→20:44)
--- NOTE | 2017-03-02 11:12 | ECHO ---
[email or web address] [address] [address] Main: [phone] Fax: Transthoracic Echocardiogram Name: ANDIE TAM MR#: [id number] Study Date: 03/02/2017 Study Time: 07:42 AM Date of : 1940 Age: 76 year(s) Height: 180.3 cm (71 in.) Weight: 90.72 kg (200 lb.) BSA: 2.11 m2 Gender: Male Examination: Echo Indication: Abnormal troponin, post op ventral hernia Image Quality: Contrast: Requested by: Wilian Villalobos BP: 137 mmHg/75 mmHg Heart Rate: Rhythm: Indication: Abnormal troponin, post op ventral hernia Procedure Staff [employer] Cooking: Betina Hook Reading Physician: Dank Curtis Requesting Provider: Conclusions: Normal size left ventricle. No LV hypertrophy. The ejection fraction is estimated to be 60-65 %. 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 Moderate mitral annular calcification. Trivial mitral valve regurgitation. Moderate aortic cusp calcification is present. The aortic valve is tri-leaflet. Mild calcific aortic valve stenosis. AV max PG is 27mmHG. AV mean PG is 16mmHG.. Trivial tricuspid valve regurgitation. Measurements: Chambers Valvular Assessment AV/MV Valvular Assessment TV/PV Normal Normal Normal Name Value Range Name Value Range Name Value Range Ao Lucita (MM): 3.7 cm (2.2 cm-3.7 AV meanP mmHg ( - ) cm) GABRIELA (VTI): 1.5 cm ( - ) LVDd (2D): 5.5 cm (4.2 cm-5.9 MV E Vmax: 0.74 m/s ( - ) cm) MV A Vmax: 1.18 m/s ( - ) LVOTd 2.1 cm 2.1 cm mm MV E/A: 0.63 ( - ) EF Range: 60-65 % Continued Measurements: Chambers Valvular Assessment AV/MV Name Value Name Value LADs: 4.0 cm MV E' Septal: 0.07 m/s LADs Lon.0 cm MV E/E' Septal: 10.30 Patient: ANDIE TAM Study Date: 03/02/2017 Page 1 of 2 07:42 AM LA Area: 23.7 cm2 MV E/E' Lateral: 9.00 Findings: Left Ventricle: Normal size left ventricle. No LV hypertrophy. Global hypercontractility of the left ventricle. The ejection fraction is estimated to be 60-65 %. 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 Right Ventricle: Normal size right ventricle. Left Atrium: The left atrium is normal in size. Right Atrium: The right atrium is normal in size. Mitral Valve: Moderate mitral annular calcification. Trivial mitral valve regurgitation. Aortic Valve: Moderate aortic cusp calcification is present. The aortic valve is tri-leaflet. Mild calcific aortic valve stenosis. AV max PG is 27mmHG. AV mean PG is 16mmHG.. Tricuspid Valve: Tricuspid valve not well visualized. Trivial tricuspid valve regurgitation. Pulmonic Valve: Pulmonary valve not well visualized. Aorta: The aorta is normal. Pericardium: No pericardial effusion. There is pericardial fat. Exam Comments: Technically difficult study with patient flat post op. No subcostal views (bandaged).. (No Signature Object) Patient: ANDIE TAM Study Date: 03/02/2017 Page 2 of 2 07:42 AM [id number]
--- NOTE | 2017-03-02 15:34 | HOSPPROG ---
Hospitalist Progress Note Assessment/Plan: 76y male with sob. First encounter, chart reviewed. D/W RN. #POD #5 Ventral hernia repair per surgery #Acute Respiratory Failure multifactorial #Pulmonary Vascular congestion and volume overload diuresis ECHO 60% #COPD-E cont supportive care #abnormal troponin in setting of no chest pain and unremarkable EKG trending down stress related #Chronic steroid use, ?adrenal insufficiency consider stress dose on steriods now #Chronic Immunosupression cont meds #RA meds #Leukocytosis multifactorial #Post operative Anemia stable no signs of bleeding Plan: -Lasix x 1 Hold IVF -steroid for COPD-E, which should also help if there is adrenal insufficiency -will not start abx at this time given isolated fever and no clear source. He is chronically immunosupressed and if steroids and lasix do not help, would have low threshold to start. -consider cardiac consult pending w/u Subjective: Feels tired and very weak. Not doing well after surgery. Objective: Vital Signs Temp Pulse Resp BP Pulse Ox 36.8 C 76 18 137/75 H 92 03/02/17 07:36 03/02/17 10:48 03/02/17 10:48 03/02/17 07:36 03/02/17 10:48 Laboratory Results 03/02/17 04:14 03/02/17 04:14 03/01/17 03/02/17 03/03/17 05:59 05:59 05:59 Intake Total 100 1180 Output Total 570 280 215 Balance -470 900 -215 - Physical Exam Constitutional: chronically ill appearing, obese, uncomfortable Eyes: PERRL, anicteric sclera, EOMI Ears, Nose, Mouth, Throat: moist mucous membranes, hearing normal, ears appear normal Cardiovascular: edema, No JVD, No tachycardia Respiratory: no respiratory distress, no rales or rhonchi, reduced air movement Gastrointestinal: tenderness, distension, No ascites Skin: warm, no rashes or abrasions, No mottled Musculoskeletal: normal joint ROM, no joint effusions, generalized weakness Neurologic: AAOx3 Psychiatric: not anxious, not encephalopathic, flat affect, poor judgement ICD10 Worksheet Patient Problems: Problems Problem Status Onset Incarcerated ventral hernia Acute Pneumonia Acute Diarrhea with dehydration Acute Diarrhea Acute
[2017-03-02] MEDS ORDERED: methylPREDNISolone SOD SUCC 125 MG/2 ML VIAL IVP ONE (18:36)
[2017-03-02] MEDS: TERAZOSIN HCL 2 MG CAP PO SCH (20:46)
[2017-03-02] MEDS: TEMAZEPAM 15 MG CAP PO SCH (20:47)
[2017-03-03] MEDS: MELATONIN 3 MG TAB PO SCH ×2 (00:31→20:11)
[2017-03-03] MEDS: PIPERACILLIN/TAZO 3.375 GM/DEX 50 ML IV SCH ×4 (03:28→20:11)
[2017-03-03] MEDS: OXYCODONE/APAP 5/325 TAB PO PRN ×4 (03:35→18:41)
[2017-03-03] MEDS: ALBUTEROL 3 ML DEYVIAL IH SCH ×4 (05:42→20:51)
[2017-03-03] MEDS: HYDROmorphONE/DILAUDID 1 MG/ML INJ IVP PRN ×2 (06:10→17:49)
[2017-03-03] MEDS: Tiotropium Br/Olodaterol Hcl [Stiolto Respimat Inhal Spray] 4 GM IH SCH ×2 (09:00→20:51)
[2017-03-03] MEDS: predniSONE 5 MG TAB PO SCH (09:15)
[2017-03-03] MEDS: LEFLUNOMIDE 20 MG TAB PO SCH (09:15)
[2017-03-03] MEDS: LISINOPRIL 10 MG TAB PO SCH (09:15)
[2017-03-03] MEDS: FOLIC ACID 1 MG TAB PO SCH (09:15)
[2017-03-03] MEDS: SENNOSIDES/DOCUSATE SODIUM TAB PO SCH ×2 (09:19→20:12)
--- NOTE | 2017-03-03 10:19 | HOSPPROG ---
Hospitalist Progress Note Assessment/Plan: 76y male with sob. #POD #6 Ventral hernia repair per surgery #Acute Respiratory Failure multifactorial improving zosyn #Pulmonary Vascular congestion and volume overload diuresis ECHO 60% #COPD-E cont supportive care #abnormal troponin in setting of no chest pain and unremarkable EKG trending down stress related #Chronic steroid use, ?adrenal insufficiency consider stress dose on steriods now seems to be doing better #Chronic Immunosupression cont meds #RA meds #Leukocytosis multifactorial #Post operative Anemia stable no signs of bleeding Plan: -cont supportive care -steroid for COPD-E, which should also help if there is adrenal insufficiency -He is chronically immunosupressed on zosyn -consider cardiac consult if not cont improvement Subjective: Feeling much better. Less pain. Breathing easier. Objective: Vital Signs Temp Pulse Resp BP Pulse Ox 36.7 C 90 26 H 117/66 92 03/03/17 07:17 03/03/17 07:17 03/03/17 07:17 03/03/17 09:15 03/03/17 07:17 Laboratory Results 03/02/17 04:14 03/02/17 04:14 03/02/17 03/03/17 03/04/17 05:59 05:59 05:59 Intake Total 1180 673 250 Output Total 280 690 Balance 900 -17 250 - Physical Exam Constitutional: chronically ill appearing, uncomfortable Eyes: PERRL, anicteric sclera Ears, Nose, Mouth, Throat: moist mucous membranes, hearing normal Cardiovascular: No JVD, No edema Respiratory: no respiratory distress, reduced air movement Gastrointestinal: tenderness, No ascites Skin: warm, normal color Musculoskeletal: normal joint ROM, generalized weakness Neurologic: AAOx3 Psychiatric: interacting appropriately, not anxious, not encephalopathic ICD10 Worksheet Patient Problems: Problems Problem Status Onset Incarcerated ventral hernia Acute Pneumonia Acute Diarrhea with dehydration Acute Diarrhea Acute
--- NOTE | 2017-03-03 17:22 | ASMTCMCOM ---
CM Note CM Note Notes: Spoke w/pt re; dc poc. CM discussed PT recommendation of SNF, pt not very interested and prefers to go home. Asked pt if he would like home care but wasn't really understanding the benefit. Pt is perseverating on needing to get back to work stating that he is in a "precarious financial situation". CM asked if I could discuss matter with and pt agreed. CM spoke w/ after she spoke with him re PT/OT recommendations, pt again declines rehab but is ammenable to home care, CM will send referrals. DC Plan: Home Care Date Signed: 03/03/2017 05:22 PM Electronically Signed By:Merissa Atkinson RN
[2017-03-03] MEDS: TEMAZEPAM 15 MG CAP PO SCH (20:11)
[2017-03-03] MEDS: TERAZOSIN HCL 2 MG CAP PO SCH (20:35)
[2017-03-04] MEDS ORDERED: NS 500 ML IV ONE ×2 (00:49→01:15)
[2017-03-04] MEDS ORDERED: D50W 25 GM/50 ML SYR IVP PRN (00:55)
[2017-03-04] MEDS: PIPERACILLIN/TAZO 3.375 GM/DEX 50 ML IV SCH ×4 (02:18→20:55)
[2017-03-04] MEDS ORDERED: LR 1,000 ML IV SCH (03:30)
[2017-03-04] MEDS: ALBUTEROL 3 ML DEYVIAL IH SCH ×2 (05:59→11:22)
[2017-03-04] MEDS: Tiotropium Br/Olodaterol Hcl [Stiolto Respimat Inhal Spray] 4 GM IH SCH ×2 (07:23→20:05)
[2017-03-04] MEDS: MDI IH PRN (07:24)
[2017-03-04] MEDS: ALBUTEROL IH PRN (07:24)
[2017-03-04] MEDS ORDERED: LR 1,000 ML IV ONE (07:32)
[2017-03-04 07:59] LABS: PLATELET COUNT 216 10^3/uL (150-400)
--- NOTE | 2017-03-04 08:01 | SOAPPROG ---
SOAP Progress Note Assessment/Plan: Assessment: STATUS POST VENTRAL HERNIA REPAIR/MINIMAL DRAINAGE/URINE OUTPUT OKAY/TOLERATING P.O./COMPLAINS OF PAIN AFEBRILE/VITAL SIGNS STABLE NEGATIVE BMS OR FLATUS/WOUND OKAY/ABDOMEN SOFT NONTENDER BUT SLIGHTLY DISTENDED Plan: CONTINUE PRESENT ORDERS 02/25/17 12:14 02/25/17 14:34 02/26/17 09:00 wound ok/ binder in place/ poor appetite/ +flatus and bm/ afebrile/ vs stable/ uo good/ home 1-2 days/ starting to mobilize 03/04/17 07:59 FEELING BETTER/ ABD SOFT/ WOUND OK/ UO OK/ EATING CAREFULLY/ WANTS TO GO HOME IN AM Objective: Vital Signs Temp Pulse Resp BP Pulse Ox 36.8 C 85 20 86/48 L 95 03/04/17 07:24 03/04/17 07:24 03/04/17 07:24 03/04/17 07:24 03/04/17 07:24 03/03/17 03/04/17 03/05/17 05:59 05:59 05:59 Intake Total 673 1375 Output Total 189 455 Balance -17 920 ICD10 Worksheet Patient Problems: Problems Problem Status Onset Diarrhea Acute Diarrhea with dehydration Acute Incarcerated ventral hernia Acute Pneumonia Acute
[2017-03-04] MEDS ORDERED: ALTEPLASE 2 MG VIAL IVP PRN ×2 (08:16)
--- NOTE | 2017-03-04 08:19 | HOSPPROG ---
Hospitalist Progress Note Assessment/Plan: Night Float Note Called directly by RN. Concern for hypotension, increased WOB and lethargy this AM. I was called overnight regarding low BPs and patient was given a bolus with appropriate response. AM labs were ordered however delay in draw as lab had difficulties obtaining samples. Patient with IV access but poor access for lab draws. Patient with failure to progress over course of hospital stay and hospitalist service consulted 2 days ago for assistance with medical management. Patient was started on Zosyn for concern of pna. hx of COPD. VS reviewed. Selected Entries 03/04/17 07:24 Heart Rate 85 Respiratory 20 Rate O2 Sat (%) 95 Temperature (C) 36.8 C Blood Pressure 86/48 L Mean Arterial 60 Pressure (MAP) O2 (L/minute) 4 Activity During At Rest Vital Signs O2 Delivery Nasal Cannula Mode Blood Pressure Left Source Upper Arm Automatic Temperature Oral Source Heart Rate Automatic Source Gen - NAD. patient lays quietly in bed. increased WOB shallow breaths. patient awake and interactive. appears chronically ill, obese and fatigued. skin - pallor. ENT - MMM. CV - RRR slightly distant heart sounds. Resp - diminished bases. wheezing in upper lung [place]. increased work of breathing with shallow breaths. Abd - Abd distended. hypoactive. incision dry/clean/intact. ALONDRA with dark drainage. Ext - trace edema. decreased pedal pulses Neuro -0 nonfocal. moves all extremities. generalized weakness. Psych - AAOx3. not agitated. cooperative. Labs last from 03/02/17 reviewed. h/h stable hgb >9, k+ 5.3 without linda. AM labs pending. h/h returned down <7 KUB - dilated loops of bowel. CXR - air below diaphragm Right. cardiomegaly. bilateral atelectasis. possible effusion left. Echo - preserved EF >60%. anterolateral apical akinesis. A/P 2 units prbc stat. awaiting bmp. transfer to ICU call placed to Dr. Butt awaiting call back. Report given to day Hospitalist Dr. Morrow. Critical care time 26 minutes critical care time Objective: Vital Signs Temp Pulse Resp BP Pulse Ox 36.8 C 85 20 86/48 L 95 03/04/17 07:24 03/04/17 07:24 03/04/17 07:24 03/04/17 07:24 03/04/17 07:24 Laboratory Results 03/04/17 07:43 03/03/17 03/04/17 03/05/17 05:59 05:59 05:59 Intake Total 673 1375 Output Total 431 455 Balance -17 920 ICD10 Worksheet Patient Problems: Problems Problem Status Onset Diarrhea Acute Diarrhea with dehydration Acute Incarcerated ventral hernia Acute Pneumonia Acute
--- NOTE | 2017-03-04 08:28 | HOSPPROG ---
Hospitalist Progress Note Assessment/Plan: # melena, suspect UGIB - protonix gtt, GI consult (discussed with Dr Treviño); NPO; check coags # ABLA - transfuse 2U PRBC # hypotension d/t ABLA - place picc, transfer to ICU # ventral hernia s/p repair POD#[address]t # free air under diaphragm - discussed with Dr Butt; possibly perforated ulcer ; possibly expected post-op vs other etiology - empiric zosyn # GUSTAVO - pre-renal, needs volume; check UA # acute on chronic (nocturnal O2) resp failure - d/t pna, pulm edema # COPD, possible exacerbation - steroids, zosyn # pulmonary edema - hold diuresis with hypotension # pneumonia - zosyn D#3 # hyperkalemia - change LR to NS # CAD - L base akinetic, elevated trop - no CP, needs ischemic eval at some point # chronic steroid use - increase steroid dose # RA - leflunamide, steroids Subjective: did not do well overnight; hypotensive, more lethargic; had melena this am Objective: Vital Signs Temp Pulse Resp BP Pulse Ox 36.8 C 85 20 86/48 L 95 03/04/17 07:24 03/04/17 07:24 03/04/17 07:24 03/04/17 07:24 03/04/17 07:24 Laboratory Results 03/04/17 07:43 03/03/17 03/04/17 03/05/17 05:59 05:59 05:59 Intake Total 673 1375 Output Total 690 455 Balance -17 920 40 mins floor CC time - Physical Exam Constitutional: uncomfortable Cardiovascular: regular rate and rhythym, systolic murmur, No irregularly irregular Respiratory: respiratory distress (mild) Gastrointestinal: distension, other (soft, TTP diffusely, no guarding/rebound) ICD10 Worksheet Patient Problems: Problems Problem Status Onset Incarcerated ventral hernia Acute Pneumonia Acute Diarrhea with dehydration Acute Diarrhea Acute
[2017-03-04] MEDS ORDERED: PANTOPRAZOLE SODIUM 40 MG VIAL IVP ONE (08:29)
[2017-03-04] MEDS ORDERED: PANTOPRAZOLE SODIUM 80 MG in NS 100 ML IV SCH (08:30)
[2017-03-04] MEDS ORDERED: NS 1,000 ML IV SCH (08:30)
--- NOTE | 2017-03-04 08:34 | SOAPPROG ---
SOAP Progress Note Assessment/Plan: Assessment: STATUS POST VENTRAL HERNIA REPAIR/MINIMAL DRAINAGE/URINE OUTPUT OKAY/TOLERATING P.O./COMPLAINS OF PAIN AFEBRILE/VITAL SIGNS STABLE NEGATIVE BMS OR FLATUS/WOUND OKAY/ABDOMEN SOFT NONTENDER BUT SLIGHTLY DISTENDED Plan: CONTINUE PRESENT ORDERS 02/25/17 12:14 02/25/17 14:34 02/26/17 09:00 wound ok/ binder in place/ poor appetite/ +flatus and bm/ afebrile/ vs stable/ uo good/ home 1-2 days/ starting to mobilize 03/04/17 07:59 FEELING BETTER/ ABD SOFT/ WOUND OK/ UO OK/ EATING CAREFULLY/ WANTS TO GO HOME IN AM 03/04/17 08:32 sudden development of melena with hct 21/ abd soft, nontender/afebrile/ wound ok / minimal lionel drains small amount of possible free air on cxr plan check coags, gi consult Objective: Vital Signs Temp Pulse Resp BP Pulse Ox 36.8 C 85 20 86/48 L 95 03/04/17 07:24 03/04/17 07:24 03/04/17 07:24 03/04/17 07:24 03/04/17 07:24 Laboratory Results 03/04/17 07:43 03/04/17 07:43 03/03/17 03/04/17 03/05/17 05:59 05:59 05:59 Intake Total 673 1375 Output Total 975 455 Balance -17 920 ICD10 Worksheet Patient Problems: Problems Problem Status Onset Diarrhea Acute Diarrhea with dehydration Acute Incarcerated ventral hernia Acute Pneumonia Acute
--- NOTE | 2017-03-04 09:13 | CPEKG ---
Heart Rate: 86 RR Interval: 698 P-R Interval: 156 QRSD Interval: 122 QT Interval: 368 QTC Interval: 440 P [place]: -4 QRS [place]: 43 T Wave [place]: 75 EKG Severity - ABNORMAL ECG - EKG Impression: SINUS RHYTHM EKG Impression: INCOMPLETE RIGHT BUNDLE BRANCH BLOCK EKG Impression: MINIMAL ST DEPRESSION, ANTEROLATERAL LEADS EKG Impression: COMPARED WITH 03/01/2017, ATRIAL ECTOPY NOW ABSENT Electronically Signed By: Natasha Vargas 04-Mar-2017 14:26:45
[2017-03-04] MEDS ORDERED: LIDOCAINE 1% 300 MG/30 ML SDV ONE (10:06)
[2017-03-04] MEDS ORDERED: MIDAZOLAM 2 MG/2 ML VIAL ONE (10:23)
[2017-03-04] MEDS ORDERED: FLUMAZENIL 0.5 MG/5 ML MDV IVP ONE (10:23)
[2017-03-04] MEDS ORDERED: NALOXONE HCL 0.4 MG/ML INJ ONE (10:23)
[2017-03-04] MEDS ORDERED: fentaNYL 100 MCG/2 ML INJ ONE (10:24)
--- NOTE | 2017-03-04 11:03 | SOAPPROG ---
SOAP Progress Note Assessment/Plan: Assessment/Plan: 76 Y M s/p recurrent ventral hernia repair, POD#8. Also seen by Dr. Butt earlier this am. Just discussed patient with him now. Melena and drop in Hct. Central line now in. pRBCs running. Egd about to happen. Abdomen has been soft and NT. Systolic BP's running btwn 80-100's. HR 80 's. Can consider TXA. Will continue to follow closely. Dr. Butt available if surgery becomes indicated. 03/04/17 10:56 Objective: Vital Signs Temp Pulse Resp BP Pulse Ox 36.8 C 87 18 98/46 L 97 03/04/17 09:00 03/04/17 09:51 03/04/17 09:51 03/04/17 09:51 03/04/17 09:51 Laboratory Results 03/04/17 07:43 03/04/17 07:43 03/03/17 03/04/17 03/05/17 05:59 05:59 05:59 Intake Total 148 5920 Output Total 849 386 Balance -17 920 ICD10 Worksheet Patient Problems: Problems Problem Status Onset Diarrhea Acute Diarrhea with dehydration Acute Incarcerated ventral hernia Acute Pneumonia Acute
[2017-03-04] MEDS ORDERED: ALBUTEROL 3 ML DEYVIAL IH PRN (11:21)
[2017-03-04 11:22] LABS: INR 1.33 (0.83-1.16); PROTIME(PATIENT) 16.7 SEC (12.0-15.0)
--- NOTE | 2017-03-04 11:22 | POSTOPPROG ---
Post Op Note Date of Operation: 03/04/17 Surgeon: Steve Fay Anesthesia: Local (Specify) (1% lidocaine) Pre-op Diagnosis: Anemia, GI bleed, Hypotension Post-op Diagnosis: Anemia, GI bleed, Hypotension Indication: inadequate venous access Procedure: attempted (failed) right supraclavicular central access, right femoral line Findings: inadequate venous access Inf/Abcess present in the surg proc area at time of surgery?: No EBL: Minimal Total fluids administered: 200cc Complications: none
--- NOTE | 2017-03-04 12:32 | PDPROPOC ---
Sedation Plan of Care ASA Classification: ASA 3 Mallampati Score: Class 1 Mallampati Reference Image: Patient passed 3-3-2 rule?: Yes
[2017-03-04] MEDS: FOLIC ACID 1 MG TAB PO SCH (12:33)
[2017-03-04] MEDS: INSULIN LISPRO 100 UNIT/ML SC SCH ×2 (12:34→23:42)
--- NOTE | 2017-03-04 12:39 | GIREPORT ---
[facility] - Endoscopy Department Patient Name: Kevin Mata Procedure Date: 03/04/2017 11:18 AM Patient Type: Inpatient Attending MD/ ER Physician: Misbah Treviño MD Procedure: Upper GI endoscopy Indications: Note dictated, consult appreciated. Melena today, with drop in Hct. Diaz e new free air noted on KUB, vs. several days ago. S/p ventral hernia repair. Providers: Misbah Treviño MD Referring MD: Amos Butt MD; John Balderas MD; [facility] Hospitalist service Medicines: Fentanyl 100 micrograms IV, Midazolam 4 mg IV Complications: No immediate complications. Description of Procedure: After obtaining informed consent, the endoscope was passed under direct vision. Throughout the procedure, the patient's blood pressure, pulse, and oxygen saturations were monitored continuously. The Endoscope was intro duced through the mouth, and advanced to the second part of duodenum. Findings: Moderately severe exudative esophagitis was found in the lower half of the esophagus. Friable, but without active bleeding. Biopsies were taken wi th a cold forceps for histology. A small hiatal hernia was present. The examined duodenum was normal. Estimated Blood Loss: Estimated blood loss: none. Post Op Diagnosis: - Moderately severe esophagitis. This certainly could have caused his melena, and contributed to anemia. In turn, suspect acid-peptic. However, with his outpt. prednisone use, fungal also possible. Recommendation: - Await pathology results, to r/o kyaw. However, with his degree of illness, will treat him empirically with diflucan x 5 days. - change PPI to bid. - Further managment, including findings of free air on today's imaging, as per critical care, surgery. Will sign off. I will f/u on bx results. Else, please call if we can be of further help [phone]). Thank you for allowing me to help in the management of this patient. Kamila Crawley MD Misbah Treviño MD 03/04/2017 12:39:24 PM This report has been signed electronicallyPeter MD Kamila Number of Addenda: 0 Note Initiated On: 03/04/2017 11:18 AM [email or web address]
--- NOTE | 2017-03-04 13:20 | GCON ---
[f rep st] CONSULTATION GI INPATIENT CONSULTATION. DATE OF CONSULTATION: 03/04/2017 I was kindly requested to see the patient in consultation by Dr. Brennan Morrow for a chief complaint of melena. He is a 76-year-old white male who is postop day #5 from a ventral hernia repair. This morning, he was noted to have black stool. His hematocrit decreased from 29.7% to 20.5%. As an outpatient, he does use low-dose prednisone. He also uses ibuprofen as needed. With the above, including some hypotension, he has been transferred to the ICU. His hospitalization has been complicated by pneumonia and pulmonary edema. He has a past history of colon cancer. His last colonoscopy was in September of 2016, and was unremarkable. PAST MEDICAL HISTORY: 1. As above. 2. Rheumatoid arthritis. 3. CAD. 4. COPD. 5. Hypertension. 6. Otherwise, noncontributory. INPATIENT MEDICATIONS: Include IV fluids, Protonix drip, Zosyn, and Solu- Medrol 10 mg IV q.8. SOCIAL HISTORY: He is . FAMILY HISTORY: Negative for similar anemia. REVIEW OF SYSTEMS: Positive pertinent review of systems as per my HPI. Otherwise, a complete review of systems is negative. PHYSICAL EXAM: CONSTITUTIONAL: Ill-appearing gentleman. VITAL SIGNS: Systolic blood pressure 79. SKIN: Warm, dry. EYES: Pupils equal, round, and reactive to light and accommodation. EARS, NOSE, MOUTH, AND THROAT: Oropharynx without masses. Moist mucosa. CARDIOVASCULAR: Normal S2, normal PMI. RESPIRATORY: Decreased and coarse breath sounds anteriorly. GASTROINTESTINAL: Abdomen relatively nontender, without any masses felt. NEUROLOGIC: Grossly nonfocal. Cranial nerves grossly intact. PSYCHIATRIC: Orientation, insight somewhat altered. LABORATORY AND X-RAY DATA: Include the above. Creatinine has increased to 2.5. BUN has increased to 100. KUB shows some new free air versus 4 days ago. There is some diffuse small bowel distention, most prominent in the left upper quadrant, up to 5 cm. White count has increased from 8.4 to [address]85[address]. Normal platelet count. ASSESSMENT: 1. Description of melena, with drop in hematocrit. I suspect an upper gastrointestinal source of bleeding. This could include a stress ulcer, an ulcer from his outpatient nonsteroidal use, esophagitis, etc. 2. Some free air noted on imaging today, compared to several days ago. This could be just related to his recent ventral hernia surgery, or possibly a complication of this, although a perforated ulcer is certainly possible. PLAN: 1. Urgent upper endoscopy. Certainly, with his age, ICU status, recent pneumonia and pulmonary edema, hypotension, coronary artery disease, COPD, new finding of free air on imaging, etc., he is at increased risk for this procedure. However, suspected benefits outweigh the risks, and I suspect he will do well. 2. Further management depending on the above. Thank you for allowing me to help in the care of this patient. /[id number]/MODL MTDD
[2017-03-04] MEDS: SENNOSIDES/DOCUSATE SODIUM TAB PO SCH ×2 (13:33→22:15)
[2017-03-04] MEDS ORDERED: TRANEXAMIC ACID 1,000 MG in NS 100 ML IV ONE (14:00)
[2017-03-04] MEDS: FLUCONAZOLE/NaCl 100 MG in BAG 0 ML IV SCH (14:13)
[2017-03-04] MEDS: LEFLUNOMIDE 20 MG TAB PO SCH (14:19)
[2017-03-04] MEDS: methylPREDNISolone SOD SUCC 40 MG/ML VIAL IVP SCH ×2 (14:25→22:04)
[2017-03-04] MEDS ORDERED: BUPIVACAINE 0.5% 30 ML SDV ONE (16:14)
--- NOTE | 2017-03-04 17:08 | PDANEPAE ---
ANE History of Present Illness 76 yo for ex lap for free air, dropping Hg, ARF s/p ventral hernia repair ANE Past Medical History - Cardiovascular History Hx Hypertension: Yes Hx Arrhythmias: No Hx Chest Pain: No Hx Coronary Artery / Peripheral Vascular Disease: No Hx CHF / Valvular Disease: No Hx Palpitations: No Cardiovascular History Comment: murmur - Pulmonary History Hx COPD: Yes Hx Asthma/Reactive Airway Disease: No Hx Recent Upper Respiratory Infection: No Hx Oxygen in Use at Home: No Hx Sleep Apnea: Yes Sleep Apnea Screening Result - Last Documented: Positive Pulmonary History Comment: PE - Neurologic History Hx Cerebrovascular Accident: No Hx Seizures: No Hx Dementia: No - Endocrine History Hx Diabetes: No - Renal History Hx Renal Disorders: Yes Renal History Comment: bph - Liver History Hx Hepatic Disorders: No - Neurological & Psychiatric Hx Hx Neurological and Psychiatric Disorders: No - Cancer History Hx Cancer: Yes Cancer History Comment: colon - Congenital Disorder History Hx Congenital Disorders: No - GI History Hx Gastrointestinal Disorders: Yes Gastrointestinal History Comment: colon ca - Other Health History Other Health History: missing teeth. rhematid arthritis - controlled - Chronic Pain History Chronic Pain: No (ra controlle) - Surgical History Prior Surgeries: 09/24/15 VENTRAL HERNIA REPAIR. mult hernia surg 01/23/15, with dr velarde. colectomy 6 y ago. lami/fusion 09/2009. dental implant ANE Review of Systems Review of Systems: - Exercise capacity METS (RN): 3 METS ANE Patient History - Allergies Allergies/Adverse Reactions: No Allergies [NKDA] Allergy (Verified 09/22/15 16:12) - Home Medications Home medications: home medication list seen and reviewed Home Medications: Leflunomide [Arava 20 mg (*)] 20 mg PO DAILY 06/27/14 [Last Taken 02/24/17] Lisinopril [Zestril 10 mg (*)] 10 mg PO DAILY 06/27/14 [Last Taken 02/24/17] Temazepam [Restoril 15 MG (*)] 15 mg PO HS 06/27/14 [Last Taken 02/23/17] Terazosin HCl [Hytrin 2 MG (*)] 6 mg PO HS 06/27/14 [Last Taken 02/23/17] Methotrexate Sodium/Pf [Methotrexate 25 mg/ml Vial] 0.8 ml IJ SA@0800 06/28/14 [ Last Taken 02/18/17] Albuterol [Proventil Inhaler HFA (*)] 1 - 2 puffs IH DAILY PRN 02/20/17 [Last Taken Unknown] C/E/Zn/Cu/OM3/DHA/EPA/LUT/ZEAX [Preservision Areds 2 Softgel] 1 each PO DAILY [Last Taken Unknown] Folic Acid [Folic Acid 1 MG (*)] 800 mcg PO DAILY 02/24/17 [Last Taken Unknown] Tiotropium Br/Olodaterol HCl [Stiolto Respimat Inhal [place]] 1 puffs IH BID 02/24 [Last Taken 02/24/17] predniSONE 5 mg PO DAILY 02/24/17 [Last Taken 02/24/17] - NPO status NPO Since - Liquids (Date): 03/04/17 NPO Since - Liquids (Time): 06:00 NPO Since - Solids (Date): 03/03/17 NPO Since - Solids (Time): 20:00 - Smoking Hx Smoking Status: Former smoker - Family Anes Hx Family Hx Anesthesia Complications: none ANE Labs/Vital Signs - Labs Result Diagrams: 03/04/17 16:30 03/04/17 16:30 - Vital Signs Blood Pressure: 119/57 Heart Rate: 84 Respiratory Rate: 34 O2 Sat (%): 96 Height: 5 ft 11 in Weight: 90.718 kg ANE Physical Exam - Airway Neck exam: FROM Mallampati Score: Class 2 - Pulmonary Pulmonary: rhonchi - Cardiovascular Cardiovascular: regular rate and rhythym ANE Anesthesia Plan Anesthesia Plan: general endotracheal anesthesia
[2017-03-04] MEDS ORDERED: fentaNYL 250 MCG/5 ML INJ ONE (17:10)
[2017-03-04] MEDS ORDERED: PROPOFOL/EMULSION 500 MG/50 ML BOTTLE IV ONE (17:10)
[2017-03-04] MEDS ORDERED: ALBUMIN 5% 250 ML BOTTLE IV ONE (18:04)
--- NOTE | 2017-03-04 18:42 | GCON ---
[f rep st] CONSULTATION CRITICAL CARE CONSULT DATE OF CONSULTATION: 03/04/2017 HISTORY OF PRESENT ILLNESS: This patient is a 76-year-old male who was admitted on 02/25/2017 for a hernia repair redo. He had a history of colon cancer with hemicolectomy in the past, had a ventral h ernia repaired, who was admitted for an elective surgery. Surgery itself was relatively stable until he developed hypoxemia and a slight elevation in his troponin on the . He was thought to be hav ing a COPD exacerbation as well as pulmonary vascular congestion. He was given Lasix and steroids. Of note, he has a history of rheumatoid arthritis. He has been treated with methotrexate and prednis one chronically for these. The dose is unclear to me. In any case, he seemed to be doing relatively well for the following 3 days and today he developed hypotension and melena. An abdominal x-ray was taken and he was found to have new free air. His hemoglobin was 5.8. His creatinine was 2.7. He w as transferred to the ICU and was still hypotensive and a central line was placed, which is dictated under separate cover. Next, he underwent EGD and which showed only gastritis, but no obvious ulcers at the time. Because of his new free air, he is headed to the operating room at this time. He was g iven some antibiotics and will have an exploratory laparotomy done. REVIEW OF SYSTEMS: Otherwise negative. PAST MEDICAL HISTORY: Includes: 1. COPD. 2. Nocturnal hypoxemia. 3. Hernia repair in the past. 4. Rheumatoid arthritis. 5. Chronic steroid use. 6. Colon cancer. 7. Hypertension. 8. Macular degeneration. 9. Benign prostatic hypertrophy. 10. DVT. PAST SURGICAL HISTORY: Includes hemicolectomy, ventral hernia repair in the past, and a redo on this admission. SOCIAL HISTORY: He is a remote smoker. No significant alcohol or IV drug use. FAMILY HISTORY: Noncontributory. CURRENT MEDICATIONS: Include albuterol p.r.n.; Dulcolax; Benadryl; fluconazole; folate; Dilaudid; in sulin; lactulose; Arava; melatonin; Solu-Medrol, which is at 10 IV q.8 hours at the moment; Zofran; P ercocet; Protonix; Zosyn; MiraLAX; Restoril; Hytrin. EXAM: VITAL SIGNS: At the time that I 1st saw him, he was afebrile at the time of my initial evalua tion, became febrile later in the day. His blood pressure was about 80/40. GENERAL: He was awake b ut somnolent, did answer questions appropriately, but was in no obvious distress. HEENT: His pupils equally round and reactive to light. Nonicteric and noninjected. Mucous membranes moist without, e rythema, or exudate. NECK: Supple, without adenopathy or jugular vein distention. SKIN: Chest mindi urbina had an incision over his left anterior chest where he has had a previous port for chemotherapy. RE SPIRATORY: Breath sounds were otherwise clear to auscultation bilaterally without wheezes, rubs, or rales. HEART: Regular rate and rhythm without murmurs, rubs, gallops. ABDOMEN: Soft and tender to deep palpation with hypoactive bowel tones. ALONDRA drain was in place. His incision looked clean and d ry without evidence of infection. EXTREMITIES: Showed no clubbing, cyanosis, or edema. NEUROLOGICA L: Nonfocal including cranial nerves, deep tendon reflexes. OBJECTIVE DATA: Includes an x-ray as described above. His white count today was 14.8, hematocrit dr opped to 17.8 from 29.7 two days ago. His platelets were 216. INR was 1.3. Basic metabolic panel s howed a sodium of 136, but a creatinine of 2.5, BUN of 100, glucose of 157. UA was negative. ASSESSMENT/PLAN: 1. Likely perforation of wound breakdown. It is possible this is related to his high-dose steroids that he had been on. He has used chronic prednisone, so I think that we need to give him some steroi ds, but I would probably take efforts to reduce the dose as much as possible. He will be going to th e OR and the antibiotics are appropriate. His airway is secure at this time. His blood pressure is much better once he had fluid boluses. 2. Gastrointestinal bleeding. Presumably this bleeding is related to his esophagitis. There may be other issues downstream. In either case, he is on a PPI. He has gotten a couple units of blood. H is INR should be less than 1.5. 3. Hypotension. I think this is most likely hypovolemia, less likely aseptic shock. This certainly in the differential diagnosis and he should be following sepsis protocol. A central line was placed with the help of Dr. Fay. 4. Acute kidney injury. This is probably secondary to above. Volume resuscitation should work. He should have a Velez catheter and monitor his urine output very closely. 5. Chronic obstructive pulmonary disease. I think this is fairly stable at this time. I would redu ce his steroid dose as much as we can tolerate. A total of 45 minutes of critical care time was required in the absence of procedures dictated bertha garcia. /[id number]/MODL
[2017-03-04] MEDS ORDERED: fentaNYL 100 MCG/2 ML INJ IVP PRN (19:00)
[2017-03-04] MEDS ORDERED: HYDROmorphONE/DILAUDID 1 MG/ML INJ IVP PRN (19:00)
--- NOTE | 2017-03-04 19:19 | POSTOPPROG ---
Post Op Note Date of Operation: 03/04/17 Surgeon: Amos Butt Radio Interference Investigator: Jyoti Henderson Anesthesiologist: Sher Nassar Anesthesia: GET(General Endotracheal) Pre-op Diagnosis: perforated viscous, GI bleed Post-op Diagnosis: perforated sigmoid colon, likely unrelated to diverticuli Procedure: exlaparotomy, repair of sigmoid perforation, washout, abthera vac Findings: not a great deal of fecal or bilious contamination, bowel & stomach viable Inf/Abcess present in the surg proc area at time of surgery?: Yes Depth: Organ Space EBL: Minimal Complications: none Drains: Other (abthera open abdomen wound vac)
[2017-03-04] MEDS ORDERED: PROPOFOL/EMULSION 1,000 MG/100 ML BOTTLE IV ONE (19:27)
[2017-03-04] MEDS ORDERED: DEXMEDETOMIDINE HCL 400 MCG in NS 100 ML IV SCH (19:30)
[2017-03-04] MEDS ORDERED: DEXMEDETOMIDINE IN 0.9 % NACL 100 ML IV SCH (19:30)
[2017-03-04] MEDS: fentaNYL/NACL 100 ML IV SCH (19:54)
[2017-03-04] MEDS ORDERED: NS W/ 20 KCl/L 1,000 ML IV SCH (20:15)
--- NOTE | 2017-03-04 21:06 | GOP ---
[f rep st] OPERATIVE REPORT DATE OF OPERATION: 03/04/2017 SURGEON: Steve Fay MD ANESTHESIA: Local (1%). PREOPERATIVE DIAGNOSIS: Anemia, gastrointestinal bleed, hypotension. POSTOPERATIVE DIAGNOSIS: Anemia, gastrointestinal bleed, hypotension. PROCEDURE PERFORMED: Attempted (failed) right supraclavicular central access, successful right femoral vein central access. FINDINGS: Anemia, gastrointestinal bleed, hypotension. ESTIMATED BLOOD LOSS: Bleeding minimal. INDICATIONS: Inadequate venous access. DESCRIPTION OF PROCEDURE: The patient is seen in ICU bed 247. Dr. Suleman Ramirez has been attempting to feed a central line via the subclavian approach, but is unable to get further than a centimeter past the needle tip. The patient has previously had central lines and ports. I am asked to see the patient to assist with central access. In examining his neck, he has a very distended left external jugular. Because access has previously been attempted on the right, I plan to attempt a right supraclavicular access. Ultrasound is used and there appears to be adequate vessel size. The right neck is carefully prepped and draped. At a point 1 cm posterior to the lateral border of the sternocleidomastoid and clavicular junction, the skin was anesthetized. The needle was passed, dropping the syringe 15 degrees below the horizontal plane heading the needle tip toward the contralateral nipple. I do enter the subclavian vein from the supraclavicular approach. Again, the guidewire does not feed. This is attempted several times and I am still met with this issue. I suspect there has been some scarring from his prior central access. Because access is necessary, the field is carefully broken down and his right groin is carefully prepped and draped. The artery is palpated. A fine needle is used to identify the vein. Central access is achieved. The skin is incised , and a dilator is passed. Note is made that the skin had been anesthetized with 1% Xylocaine prior to the procedure. The dilator is removed. The triple- lumen catheter is carefully passed. Hubs are placed on each arm of the triple- lumen. The guidewire has been removed. The line is sutured in place at 2 sites. A Biopatch is positioned. Tegaderm is used as an occlusive dressing. Note is made that all 3 lumens have been flushed. The chest x-ray has been obtained. There is no evidence of a pneumothorax from the prior right subclavian attempts. COMPLICATIONS: None. /[id number]/MODL MTDD
[2017-03-04] MEDS: NS 1,000 ML IV SCH (21:42)
[2017-03-04] MEDS: PANTOPRAZOLE SODIUM 40 MG VIAL IVP SCH (22:06)
[2017-03-04] MEDS: TEMAZEPAM 15 MG CAP PO SCH (22:15)
[2017-03-04] MEDS: MELATONIN 3 MG TAB PO SCH (22:15)
[2017-03-04] MEDS: TERAZOSIN HCL 2 MG CAP PO SCH (22:16)
[2017-03-05] MEDS: PIPERACILLIN/TAZO 3.375 GM/DEX 50 ML IV SCH ×4 (02:38→20:33)
[2017-03-05] MEDS: PROPOFOL/EMULSION 100 ML IV SCH ×4 (02:38→17:38)
[2017-03-05] MEDS: fentaNYL/NACL 100 ML IV SCH ×3 (02:38→17:37)
[2017-03-05 04:25] LABS: PLATELET COUNT 164 10^3/uL (150-400)
--- NOTE | 2017-03-05 05:29 | GPN ---
[f rep st] PROCEDURE NOTE DATE OF PROCEDURE: 03/04/2017 PROCEDURE: Central line placement attempt. INDICATION: Hypotension. CONSENT: Was obtained from the patient prior to the procedure. This was done verbally. The risks a nd benefits of the procedure were explained in detail and he agreed to proceed. DESCRIPTION OF PROCEDURE: After sterile prep and drape in normal fashion, an attempt at the right jarrett bclavian vein was attempted using the standard sterile Seldinger technique. While I was able to ente r the vessel on several attempts with adequate blood flow, I was unable to advance the wire beyond ab out 10 cm past the tip of the needle. I attempted this several times with the same results. At this point, I asked for the assistance of Dr. Fay who also attempted a supraclavicular approach with t he same result. This anatomy was subsequently abandoned and a right femoral central venous catheter was placed by Dr. Fay without difficulty. A postprocedure chest x-ray did not show pneumothorax. Patient overall tolerated the procedure well. /[id number]/MODL
[2017-03-05] MEDS: methylPREDNISolone SOD SUCC 40 MG/ML VIAL IVP SCH (05:45)
[2017-03-05] MEDS: NS 1,000 ML IV SCH ×2 (07:58→17:32)
[2017-03-05] MEDS: FOLIC ACID 1 MG TAB PO SCH (07:58)
[2017-03-05] MEDS: LEFLUNOMIDE 20 MG TAB PO SCH (07:59)
[2017-03-05] MEDS: FLUCONAZOLE/NaCl 100 MG in BAG 0 ML IV SCH (08:03)
--- NOTE | 2017-03-05 09:17 | POSTANESTH ---
Post Anesthetic Evaluation Cardiovascular Status: Normal, Stable Respiratory Status: Other, See Comment Level of Consciousness/Mental Status: Moderately Sleepy Pain Control: Adequate, Prn Tx Ordered Nausea/Vomiting Control: Adequate, Prn Tx Ordered Complications Possibly Related to Anesthesia: None Noted (on vent , sedated)
[2017-03-05] MEDS: PANTOPRAZOLE SODIUM 40 MG VIAL IVP SCH ×2 (09:25→20:30)
[2017-03-05] MEDS: INSULIN LISPRO 100 UNIT/ML SC SCH ×2 (09:25→21:20)
[2017-03-05] MEDS: Tiotropium Br/Olodaterol Hcl [Stiolto Respimat Inhal Spray] 4 GM IH SCH ×2 (09:27→12:02)
[2017-03-05] MEDS: SENNOSIDES/DOCUSATE SODIUM TAB PO SCH ×2 (09:40→20:30)
--- NOTE | 2017-03-05 09:47 | HOSPPROG ---
Hospitalist Progress Note Assessment/Plan: # sigmoid perforation s/p oversew last night by Dr Butt - cont empiric zosyn; will get ID consult for help with abx - to OR tomorrow for second look # GI bleed - may have been sigmoid? also has esophagitis - s/p EGD yesterday with esophagitis - Dr Treviño started empiric fluconazole for possible candidal esophagitis # ABLA - -s/p 2U PRBC # acute respiratory failure - cont vent management until tomorrow # ventral hernia s/p repair POD#[address] Butt # GUSTAVO - pre-renal; better post sigmoid repair # mild hyperkalemia - should improve with renal function - recheck # acute on chronic (nocturnal O2) resp failure - d/t pna, pulm edema # COPD, possible exacerbation - steroids, zosyn # pulmonary edema - hold diuresis with hypotension # ?pneumonia - zosyn D#4 # CAD - L base akinetic, elevated trop - no CP, needs ischemic eval at some point # chronic steroid use - increase steroid dose # RA - leflunamide, steroids Subjective: s/p OR last night; found sigmoid perforation, repaired Objective: Vital Signs Temp Pulse Resp BP Pulse Ox 36.8 C 60 14 100/54 L 100 03/05/17 09:00 03/05/17 09:00 03/05/17 09:00 03/05/17 09:00 03/05/17 09:00 Laboratory Results 03/05/17 04:15 03/05/17 04:15 03/04/17 03/05/17 03/06/17 05:59 05:59 05:59 Intake Total 1375 3357 Output Total 455 1963 Balance 920 1394 PT 16.7 SEC (12.0-15.0) H 03/04/17 11:00 INR 1.33 (0.83-1.16) H 03/04/17 11:00 35 mins floor CC time; critically ill from sigmoid perforation, respiratory failure - Physical Exam Constitutional: other (intubated, sedated) Cardiovascular: regular rate and rhythym, no murmur, rub, or gallop Respiratory: no respiratory distress, no rales or rhonchi, clear to auscultation Gastrointestinal: normoactive bowel sounds, soft, non-tender abdomen, no palpable masses ICD10 Worksheet Patient Problems: Problems Problem Status Onset Incarcerated ventral hernia Acute Pneumonia Acute Diarrhea with dehydration Acute Diarrhea Acute
--- NOTE | 2017-03-05 12:56 | SOAPPROG ---
SOAP Progress Note Assessment/Plan: Assessment/Plan: 76 Y M s/p recurrent ventral hernia repair, POD#9. s/p exlap with repair of sigmoid perforation and washout, POD#1. Seen with Dr. Mckeon this am. Sedated on vent. GUSTAVO. Cr improved, now 2.1 Acute blood loss anemia. Stable, despite no obvious source of bleeding. Had sigmoid perf, but not obvious for blood loss. Got TXA, FFP. To OR tomorrow for abdominal washout and possible fascial closure vs continue abthera vac. S: sedated on vent. O: see above abd softer vac to suction no bs 03/05/17 12:56 Objective: Vital Signs Temp Pulse Resp BP Pulse Ox 36.5 C 65 15 107/56 L 100 03/05/17 12:00 03/05/17 12:00 03/05/17 12:00 03/05/17 12:00 03/05/17 12:00 Laboratory Results 03/05/17 04:15 03/05/17 04:15 03/04/17 03/05/17 03/06/17 05:59 05:59 05:59 Intake Total 1375 3357 Output Total 455 1963 150 Balance 920 1394 -150 PT 16.7 SEC (12.0-15.0) H 03/04/17 11:00 INR 1.33 (0.83-1.16) H 03/04/17 11:00 ICD10 Worksheet Patient Problems: Problems Problem Status Onset Diarrhea Acute Diarrhea with dehydration Acute Incarcerated ventral hernia Acute Pneumonia Acute
[2017-03-05] MEDS ORDERED: D5W 1,000 ML IV SCH (13:15)
[2017-03-05] MEDS ORDERED: INSULIN REGULAR HUMAN 100 UNIT in NS 100 ML IV SCH (13:30)
--- NOTE | 2017-03-05 15:17 | PDINTPN ---
Economic Forecaster Progress Note Assessment/Plan: Assessment/plan: 76 M admitted 02/25/17 for semi-elective ventral hernia redo. No reported comps at the time of surgery, but developed hypotension, melena, and anemia 03/04 and was transferred to the ICU. Abdominal XRs showed new free air, so he was transfused and returned to the OR where he was found to have a perforation of the sigmoid colon. This was oversewn with plans to return 03/06 for a second look. Minimal contaminaiton of the peritoneum reported. Just preop, he also had EGD that showed only esophagitis, but no obvious source of bleeding. * Hypovolemic shock related to bleeding. H/H dropped between 03/02 and 03/04 at the time of sudden onset hypotension, and corrected with transfusion and return to OR. Currently normotensive and no pressors required * Peritonitis- currently stable. Started on Zosyn/flagyl. Wound look s good * Acute respiratory failure 2/2 shock- stable on minimal vent settings. Plan to keep vented until after OR tomorrow. He deos have COPD so expeditied extubation would be desired if possible * COPD - realtively stable- no wheezing * RA- he has been on chronic steroids at previously high dose, but now on 5 mg/ day. Would favor minimizing additional steroids to help with owund healing * H/o DVT- will need pharmacologic AC when cleared by surgery * * critical care time 45 minutes Subjective: s/p return to OR for perforated sigmoid colon, hypotension and bleeding. Repaired and left open for second look 03/06. Remains on vent Objective: Vital Signs Temp Pulse Resp BP Pulse Ox 37 C 69 19 125/81 H 100 03/05/17 14:00 03/05/17 14:00 03/05/17 14:00 03/05/17 14:00 03/05/17 14:00 Laboratory Results 03/05/17 04:15 03/05/17 13:59 03/04/17 03/05/17 03/06/17 05:59 05:59 05:59 Intake Total 1375 3357 Output Total 455 1963 150 Balance 920 1394 -150 PT 16.7 SEC (12.0-15.0) H 03/04/17 11:00 INR 1.33 (0.83-1.16) H 03/04/17 11:00 Physical Exam - Physical Exam General Appearance: no apparent distress, obtunded EENT: PERRL/EOMI, ET tube Neck: supple Respiratory: lungs clear, normal breath sounds, No respiratory distress, No accessory muscle use, No wheezing Cardiac/Chest: regular rate, rhythm, No edema Abdomen: soft, distended, rebound, No normal bowel sounds, No non-tender, No rigid Skin: normal color, warm/dry, No cyanosis Lymphatic: no adenopathy Extremities: No pedal edema Neuro/Psych: cognition abnormalities, other (sedation) ICD10 Worksheet Patient Problems: Problems Problem Status Onset Diarrhea Acute Diarrhea with dehydration Acute Incarcerated ventral hernia Acute Pneumonia Acute
--- NOTE | 2017-03-05 16:25 | GOP ---
[f rep st] OPERATIVE REPORT DATE OF OPERATION: 03/04/2017 SURGEON: Amos Butt MD PRODUCTION HAND: YOGESH Pham ANESTHESIOLOGIST: Krishna Nassar MD PREOPERATIVE DIAGNOSIS: Melena and free air. POSTOPERATIVE DIAGNOSIS: Melena and free air with possible colon perforation. PROCEDURE PERFORMED: Exploratory laparotomy, removal old mesh, lysis of adhesions, abdominal lavage, and repair of sigmoid colon perforation and placement of ABThera wound VAC system. FINDINGS: Patient was found to have some stained peritoneal fluid. His hernia repair is intact with no evidence of problems with the mesh. His stomach, small bowel were all intact, as was majority of his colon having had a right colectomy already; however, the sigmoid colon was plastered down in the left lower quadrant. It appeared to have a small tear in it. There was some associated melena looking material in that area. The abdomen had discolored fluid in the pelvis and abdomen, some of which was also blood and there was no true fecal material or succus. It was thought that this perforation was cause of the problem and not simply the result of dissection today. There was no evidence of diverticula or any trauma to the colon in that area however. ESTIMATED BLOOD LOSS: Negligible. INDICATIONS: The patient presented with significant melena, hypotension, and had a small amount of free air on chest x-ray with worsening abdominal pain. DESCRIPTION OF PROCEDURE: The patient was taken to the operating room where he received satisfactory general endotracheal anesthesia by Dr. Nassar. He was placed in supine position, prepped and draped in usual sterile fashion. Midline abdominal incision was made through his previous old incision and the abdomen was entered. There was some free air encountered with minimal fluid. The incision was extended through the length of his previous incision. The old mesh did have staining and discoloration, and this was taken out allowing free exploration of the abdomen. Small bowel was freed up and adhesions taken down, and the small bowel was run for its entirety with no evidence of perforation. There was no evidence of perforation in the duodenum or stomach. NG tube was in good position. The lesser sac was opened and there was no evidence of any posterior gastric perforation; however, down the left lower quadrant, the colon was quite fixed down in that area in association with some old abdominal mesh, possibly from inguinal hernia or colostomy site hernia. This was then mobilized and dissected free. What appeared to be some melanotic contents were discovered after dissecting this away from the lateral pelvic wall and a small tear in the anterior wall of the sigmoid colon was identified. This was thought to be the cause of the problem and not secondary to our dissection. At this time, the defect was debrided. There was no evidence of malignancy or ischemia. This area had been adherent to some old mesh, which had been resected off the abdominal wall and removed. It was elected to debride the wound and closed it directly as there was no significant amount of fecal contents in the colon or fecal spillage. This was done in a 2-layer fashion in a transverse direction inner layer of 3-0 Vicryl and everting external second layer of 3-0 Vicryl interrupted sutures. The suture line was then covered with fatty flaps from adjacent omentum in the epiploica of the colon for covering the suture line, which was marked with a 3- 0 Prolene suture. Wound was copiously irrigated. Hemostasis appeared to be adequate. No other major findings could be elicited. It was elected to replace an ABThera in the wound, covered with a wound VAC, which was connected to suction. A single suture was placed in the skin to approximate the mid segment of the incision. This was done with #1 PDS suture. He tolerated the procedure well. There were no complications. He was taken to the recovery room in good condition. /[id number]/MODL MTDD
[2017-03-05] MEDS: TERAZOSIN HCL 2 MG CAP PO SCH (20:30)
[2017-03-05] MEDS: TEMAZEPAM 15 MG CAP PO SCH (20:31)
[2017-03-05] MEDS: MELATONIN 3 MG TAB PO SCH (20:36)
[2017-03-06] MEDS: PROPOFOL/EMULSION 100 ML IV SCH ×4 (02:15→23:45)
[2017-03-06] MEDS: fentaNYL/NACL 100 ML IV SCH ×3 (02:47→19:49)
[2017-03-06] MEDS: PIPERACILLIN/TAZO 3.375 GM/DEX 50 ML IV SCH ×4 (02:47→19:49)
[2017-03-06 03:27] LABS: PLATELET COUNT 163 10^3/uL (150-400)
[2017-03-06] MEDS: PANTOPRAZOLE SODIUM 40 MG VIAL IVP SCH ×2 (09:15→19:49)
[2017-03-06] MEDS: methylPREDNISolone SOD SUCC 40 MG/ML VIAL IVP SCH (09:15)
--- NOTE | 2017-03-06 09:15 | HOSPPROG ---
Hospitalist Progress Note Assessment/Plan: # sigmoid perforation s/p oversew repair by Dr Butt - cont empiric zosyn; will get ID consult for help with abx - to OR today # ventral hernia s/p repair POD#[address] Butt # GI bleed with melena - may have been sigmoid? also has esophagitis - s/p EGD yesterday with esophagitis - Dr Treviño started empiric fluconazole for possible candidal esophagitis # ABLA - hgb lower today; possible blood loss in wound vac -s/p 2U PRBC # hyperglycemia - placed on insulin gtt yesterday - much better controlled - stop insulin gtt, follow closely - on slightly higher steroid dose than baseline # acute respiratory failure - hope to extubate today post-op # GUSTAVO - pre-renal; better post sigmoid repair # mild hyperkalemia - resolved today # acute on chronic (nocturnal O2) resp failure - d/t pna, pulm edema # COPD, possible exacerbation - steroids, zosyn # pulmonary edema - hold diuresis with hypotension # ?pneumonia - zosyn D#5 # CAD - L base akinetic, elevated trop - no CP, needs ischemic eval at some point # chronic steroid use - increase steroid dose # RA - leflunamide, steroids Subjective: intubated; no acute events overnight Objective: Vital Signs Temp Pulse Resp BP Pulse Ox 37 C 55 L 14 111/45 L 100 03/06/17 06:00 03/06/17 08:57 03/06/17 08:57 03/06/17 06:00 03/06/17 08:57 Laboratory Results 03/06/17 03:15 03/06/17 03:15 03/05/17 03/06/17 03/07/17 05:59 05:59 05:59 Intake Total 3357 3955.8 Output Total 1963 3250 Balance 1394 705.8 PT 16.7 SEC (12.0-15.0) H 03/04/17 11:00 INR 1.33 (0.83-1.16) H 03/04/17 11:00 patient remains critically ill on ventilator needing surgery 35 minutes of floor CC time - Physical Exam Constitutional: other (intubated and sedated) Cardiovascular: regular rate and rhythym, no murmur, rub, or gallop Respiratory: no respiratory distress, no rales or rhonchi Gastrointestinal: other (soft, grimaces with palpation) ICD10 Worksheet Patient Problems: Problems Problem Status Onset Incarcerated ventral hernia Acute Pneumonia Acute Diarrhea with dehydration Acute Diarrhea Acute
[2017-03-06] MEDS: NS 1,000 ML IV SCH ×3 (09:19→19:51)
[2017-03-06] MEDS: LEFLUNOMIDE 20 MG TAB PO SCH (09:26)
[2017-03-06] MEDS: FOLIC ACID 1 MG TAB PO SCH (09:26)
[2017-03-06] MEDS: SENNOSIDES/DOCUSATE SODIUM TAB PO SCH ×2 (09:26→19:50)
[2017-03-06] MEDS: FLUCONAZOLE/NaCl 100 MG in BAG 0 ML IV SCH (09:52)
--- NOTE | 2017-03-06 10:10 | SOAPPROG ---
SOAP Progress Note Assessment/Plan: Assessment: STATUS POST VENTRAL HERNIA REPAIR/MINIMAL DRAINAGE/URINE OUTPUT OKAY/TOLERATING P.O./COMPLAINS OF PAIN AFEBRILE/VITAL SIGNS STABLE NEGATIVE BMS OR FLATUS/WOUND OKAY/ABDOMEN SOFT NONTENDER BUT SLIGHTLY DISTENDED Plan: CONTINUE PRESENT ORDERS 02/25/17 12:14 02/25/17 14:34 02/26/17 09:00 wound ok/ binder in place/ poor appetite/ +flatus and bm/ afebrile/ vs stable/ uo good/ home 1-2 days/ starting to mobilize 03/04/17 07:59 FEELING BETTER/ ABD SOFT/ WOUND OK/ UO OK/ EATING CAREFULLY/ WANTS TO GO HOME IN AM 03/04/17 08:32 sudden development of melena with hct 21/ abd soft, nontender/afebrile/ wound ok / minimal lionel drains small amount of possible free air on cxr plan check coags, gi consult 03/06/17 10:09 vs stable, uo good/ hct down to 22/ back to or today for washout and possible closure Objective: Vital Signs Temp Pulse Resp BP Pulse Ox 36.8 C 56 L 14 118/60 100 03/06/17 09:31 03/06/17 09:31 03/06/17 09:31 03/06/17 09:31 03/06/17 09:31 Laboratory Results 03/06/17 03:15 03/06/17 03:15 03/05/17 03/06/17 03/07/17 05:59 05:59 05:59 Intake Total 3357 3955.8 Output Total 1963 3250 Balance 1394 705.8 PT 16.7 SEC (12.0-15.0) H 03/04/17 11:00 INR 1.33 (0.83-1.16) H 03/04/17 11:00 ICD10 Worksheet Patient Problems: Problems Problem Status Onset Diarrhea Acute Diarrhea with dehydration Acute Incarcerated ventral hernia Acute Pneumonia Acute
[2017-03-06] MEDS ORDERED: PROPOFOL/EMULSION 500 MG/50 ML BOTTLE IV ONE (10:26)
[2017-03-06] MEDS ORDERED: ROCURONIUM 50 MG/5 ML VIAL ONE ×2 (10:26→11:23)
[2017-03-06] MEDS ORDERED: fentaNYL 100 MCG/2 ML INJ ONE ×2 (10:27→11:11)
[2017-03-06 10:42] LABS: PLATELET COUNT 154 10^3/uL (150-400)
[2017-03-06 10:53] LABS: INR 1.31 (0.83-1.16); PROTIME(PATIENT) 16.5 SEC (12.0-15.0)
[2017-03-06] MEDS ORDERED: LIDOCAINE 2% 5 ML SDV ONE (11:11)
[2017-03-06] MEDS ORDERED: ONDANSETRON 4 MG/2 ML VIAL IVP PRN (11:12)
--- NOTE | 2017-03-06 11:12 | PDANEPAE ---
ANE Past Medical History - Cardiovascular History Hx Hypertension: Yes Hx Arrhythmias: No Hx Chest Pain: No Hx Coronary Artery / Peripheral Vascular Disease: No Hx CHF / Valvular Disease: No Hx Palpitations: No Cardiovascular History Comment: murmur - Pulmonary History Hx COPD: Yes Hx Asthma/Reactive Airway Disease: No Hx Recent Upper Respiratory Infection: No Hx Oxygen in Use at Home: No Hx Sleep Apnea: Yes Sleep Apnea Screening Result - Last Documented: Positive Pulmonary History Comment: PE - Neurologic History Hx Cerebrovascular Accident: No Hx Seizures: No Hx Dementia: No - Endocrine History Hx Diabetes: No - Renal History Hx Renal Disorders: Yes Renal History Comment: bph - Liver History Hx Hepatic Disorders: No - Neurological & Psychiatric Hx Hx Neurological and Psychiatric Disorders: No - Cancer History Hx Cancer: Yes Cancer History Comment: colon - Congenital Disorder History Hx Congenital Disorders: No - GI History Hx Gastrointestinal Disorders: Yes Gastrointestinal History Comment: colon ca - Other Health History Other Health History: missing teeth. rhematid arthritis - controlled - Chronic Pain History Chronic Pain: No (ra controlle) - Surgical History Prior Surgeries: 09/24/15 VENTRAL HERNIA REPAIR. mult hernia surg 01/23/15, with dr velarde. colectomy 6 y ago. lami/fusion 09/2009. dental implant ANE Review of Systems Review of Systems: - Exercise capacity METS (RN): 3 METS ANE Patient History - Allergies Allergies/Adverse Reactions: No Allergies [NKDA] Allergy (Verified 09/22/15 16:12) - Home Medications Home Medications: Leflunomide [Arava 20 mg (*)] 20 mg PO DAILY 06/27/14 [Last Taken 02/24/17] Lisinopril [Zestril 10 mg (*)] 10 mg PO DAILY 06/27/14 [Last Taken 02/24/17] Temazepam [Restoril 15 MG (*)] 15 mg PO HS 06/27/14 [Last Taken 02/23/17] Terazosin HCl [Hytrin 2 MG (*)] 6 mg PO HS 06/27/14 [Last Taken 02/23/17] Methotrexate Sodium/Pf [Methotrexate 25 mg/ml Vial] 0.8 ml IJ SA@0800 06/28/14 [ Last Taken 02/18/17] Albuterol [Proventil Inhaler HFA (*)] 1 - 2 puffs IH DAILY PRN 02/20/17 [Last Taken Unknown] C/E/Zn/Cu/OM3/DHA/EPA/LUT/ZEAX [Preservision Areds 2 Softgel] 1 each PO DAILY [Last Taken Unknown] Folic Acid [Folic Acid 1 MG (*)] 800 mcg PO DAILY 02/24/17 [Last Taken Unknown] Tiotropium Br/Olodaterol HCl [Stiolto Respimat Inhal [place]] 1 puffs IH BID 02/24 [Last Taken 02/24/17] predniSONE 5 mg PO DAILY 02/24/17 [Last Taken 02/24/17] - NPO status NPO Since - Liquids (Date): 03/04/17 NPO Since - Liquids (Time): 06:00 NPO Since - Solids (Date): 03/03/17 NPO Since - Solids (Time): 22:00 - Smoking Hx Smoking Status: Former smoker - Family Anes Hx Family Hx Anesthesia Complications: none ANE Labs/Vital Signs - Labs Result Diagrams: 03/06/17 10:35 03/06/17 03:15 - Vital Signs Blood Pressure: 120/56 Heart Rate: 56 Respiratory Rate: 14 O2 Sat (%): 100 Height: 180.34 cm Weight: 97.8 kg ANE Physical Exam - Airway Mallampati Score: Unable to assesss Mouth exam: ETT in situ - Pulmonary Pulmonary: no respiratory distress, no rales or rhonchi, reduced air movement - Cardiovascular Cardiovascular: regular rate and rhythym, no murmur, rub, or gallop - ASA Status ASA Status: III ANE Anesthesia Plan Anesthesia Plan: general endotracheal anesthesia
--- NOTE | 2017-03-06 12:02 | PDINTPN ---
Wrapper Selector Progress Note Assessment/Plan: Assessment: 76 M admitted 02/25/17 for semi-elective ventral hernia redo. No reported comps at the time of surgery, but developed hypotension, melena, and anemia 03/04 and was transferred to the ICU. Abdominal XRs showed new free air, so he was transfused and returned to the OR where he was found to have a perforation of the sigmoid colon. This was oversewn with plans to return 03/06 for a second look. Minimal contamination of the peritoneum reported. Just preop, he also had EGD that showed only esophagitis, but no obvious source of bleeding. * Hypovolemic shock related to bleeding. H/H dropped overnight, corrected with 1 PRBC. Stat INR ordered and is mildly elevated. * Peritonitis- currently stable. Started on Zosyn/flagyl. Wound looks good, washout today unremarkable. * Acute respiratory failure 2/2 shock- stable on minimal vent settings. Plan to keep vented for return to OR tomorrow or the next day. * COPD - relatively stable- no wheezing * RA- he has been on chronic steroids at previously high dose, but now on 5 mg/ day. Would favor minimizing additional steroids to help with owund healing * H/o DVT- will need pharmacologic AC when cleared by surgery Plan: Keep intubated/ventilated for now. Continue low-dose steroids, primarily as adrenal replacement/stress dose. Follow H/H. Resume anticoagulation when OK per Dr. Butt. 03/06/17 12:49 Subjective: Intubated, sedated Objective: Vital Signs Temp Pulse Resp BP Pulse Ox 36.8 C 56 L 14 120/56 L 100 03/06/17 10:00 03/06/17 11:12 03/06/17 11:12 03/06/17 11:12 03/06/17 11:12 Laboratory Results 03/06/17 10:35 03/06/17 03:15 03/05/17 03/06/17 03/07/17 05:59 05:59 05:59 Intake Total 3357 3955.8 Output Total 1963 3250 450 Balance 1394 705.8 -450 PT 16.5 SEC (12.0-15.0) H 03/06/17 10:35 INR 1.31 (0.83-1.16) H 03/06/17 10:35 Laboratory Tests 03/06/17 10:35 INR 1.31 H Physical Exam - Physical Exam General Appearance: no apparent distress, unresponsive EENT: normal ENT inspection Neck: normal inspection, other (ETT) Respiratory: lungs clear, normal breath sounds, No respiratory distress Cardiac/Chest: regular rate, rhythm, edema (1+) Abdomen: other (S/P laparotomy, wiht WoundVac), No normal bowel sounds Skin: normal color, warm/dry Extremities: normal inspection Neuro/Psych: No alert, No oriented x 3 ICD10 Worksheet Patient Problems: Problems Problem Status Onset Diarrhea Acute Diarrhea with dehydration Acute Incarcerated ventral hernia Acute Pneumonia Acute
--- NOTE | 2017-03-06 12:17 | POSTOPPROG ---
Post Op Note Date of Operation: 03/06/17 Surgeon: Amos Butt [employer] Mill Supervisor: Jyoti Henderson / Gabbie Todd Anesthesia: GET(General Endotracheal) Pre-op Diagnosis: open abdomen, VH, s/p colon perf repair Post-op Diagnosis: same Procedure: exlaparotomy, VH repair with Strattice, wound vac, washout Findings: viable bowel, colon repair intact, weak fascia, debrided to viable fascia Inf/Abcess present in the surg proc area at time of surgery?: No EBL: Minimal Complications: none Drains: Wound Vac
--- NOTE | 2017-03-06 19:20 | GCON ---
[f rep st] CONSULTATION INPATIENT INFECTIOUS DISEASE CONSULTATION REFERRING PHYSICIAN: Brennan Morrow MD REASON FOR REFERRAL: Peritonitis, status post ventral hernia repair after sigmoid tear. HISTORY OF PRESENT ILLNESS: Patient is a 76-year-old male who [facility], for planned ventral hernia repair. Patient did well immediately postoperatively. There were no complications in the initial operation that were noted. Over the ensuing few days, he compl ained more of abdominal pain. Overnight from March 03 to March 04, the patient began complaining of increased work of breathing and lethargy. Patient also started having hypotensive blood pressure readings. Abdominal x-ray done early in the day on 03/04/17, showed evidence of free air. Patient also suddenly developed melena and repeat blood CBC showed hematocrit of 21. Patient was taken back to the operating room, where a small sigmoid tear was found. Old mesh was removed. Patient had his sigmoid colon perforation repaired and VAC system was placed. We are consulted to help guide antibio tic therapy. Patient was placed on Zosyn and fluconazole empirically. Currently, he is resting comf ortably in the intensive care unit. He is intubated. Minimal respiratory support. PAST MEDICAL HISTORY: 1. Chronic obstructive pulmonary disease. 2. Ventral hernia. 3. Rheumatoid arthritis. 4. History of colon cancer. 5. Hypertension. PAST SURGICAL HISTORY: Status post ventral hernia repair. SOCIAL HISTORY: Patient has remote tobacco use. No alcohol. FAMILY HISTORY: Reviewed but noncontributory. REVIEW OF SYSTEMS: Other than that detailed above in History of Present Illness, a comprehensive 10- system review is negative. MEDICATIONS: Antibiotics: 1. Zosyn. 2. Fluconazole. ALLERGIES: Patient has no known medical allergies. PHYSICAL EXAMINATION: VITAL SIGNS: Temperature maximum 37 degrees, temperature current 36.2, heart rate 69, respiratory rate is 15, blood pressure is 146/60. GENERAL: Patient is a well-formed, well- nourished appearing elderly male, in no acute distress. He is intubated and sedated. HEENT: Normoc ephalic for age. Atraumatic. No scleral icterus. No oral lesion or drainage from nares. Eyes: Li ds and conjunctivae are within normal limits. Pupils are equal and round bilaterally. HEART: Regul ar rate and rhythm. No significant peripheral edema. LUNGS: Clear to auscultation bilaterally with good effort. ABDOMEN: Soft. No masses. SKIN: Warm and dry to the touch. No rash or lesion note d. Abdominal incision noted. No significant erythema. MUSCULOSKELETAL: No muscle belly tenderness is noted. No joint line effusion or arthritis seen. NEURO: Unable to evaluate secondary to sedati on status. LABORATORY DATA: Patient has a CBC dated 03/06/17, shows a white blood cell count of 11.1, hemoglobi n of 8.6, hematocrit 26.9, platelet count of 154. Differential is 50% segmented neutrophils, 28% ban d forms, 6% lymphocytes, 6% monocytes. Serum chemistries on 03/06/17, show sodium of 143, potassium 4.8, chloride of 111, bicarbonate of 22, BUN of 52, creatinine of 1.5. MICROBIOLOGIC DATA: Patient has blood cultures dated 03/01/17, show no growth to date. ASSESSMENT: Peritonitis, status post sigmoid tear. Patient is covered empirically with both Zosyn a nd fluconazole. We will continue to follow clinically but this is a very reasonable initial empiric regimen. There are going to be no operative site cultures for this case. We will follow clinically and calibrator barometers if antibiotics need to be changed by response. PLAN: 1. Continue both Zosyn and fluconazole. 2. Follow clinical course including fever curve and laboratory values. /[id number]/MODL
[2017-03-06] MEDS: MELATONIN 3 MG TAB PO SCH (19:50)
[2017-03-06] MEDS: TEMAZEPAM 15 MG CAP PO SCH (19:51)
[2017-03-06] MEDS: TERAZOSIN HCL 2 MG CAP PO SCH (19:51)
[2017-03-07] MEDS: PIPERACILLIN/TAZO 3.375 GM/DEX 50 ML IV SCH ×4 (01:37→20:40)
[2017-03-07] MEDS: fentaNYL/NACL 100 ML IV SCH ×2 (01:37→11:26)
[2017-03-07] MEDS: NS 1,000 ML IV SCH (01:40)
[2017-03-07] MEDS: PROPOFOL/EMULSION 100 ML IV SCH (04:14)
[2017-03-07] MEDS: DEXMEDETOMIDINE IN 0.9 % NACL 50 ML IV SCH ×2 (05:09→05:55)
[2017-03-07] MEDS: methylPREDNISolone SOD SUCC 40 MG/ML VIAL IVP SCH (08:07)
[2017-03-07] MEDS: PANTOPRAZOLE SODIUM 40 MG VIAL IVP SCH ×2 (08:07→22:50)
[2017-03-07] MEDS: HYDROmorphONE/DILAUDID 1 MG/ML INJ IVP PRN (08:07)
[2017-03-07] MEDS: FLUCONAZOLE/NaCl 100 MG in BAG 0 ML IV SCH (08:52)
[2017-03-07] MEDS: Tiotropium Br/Olodaterol Hcl [Stiolto Respimat Inhal Spray] 4 GM IH SCH ×2 (08:59→20:54)
--- NOTE | 2017-03-07 11:01 | SOAPPROG ---
JUAN PABLO Progress Note Assessment/Plan: Assessment/Plan: 76 Y M s/p recurrent ventral hernia repair, 02/24. peritonitis, s/p exlap with repair of sigmoid perforation and washout with abthera wound vac , 03/04. s/p washout, fascial closure with biologic mesh and wound vac, 03/06. ARF, COPD. Likely to extubate today. Sigmoid perforation repaired. VH repaired c biologic mesh. Recurrence risk high. Appreciate ID input. On fluconozole and zosyn. Wound vac change bedside tomorrow. D/w'ed wound care. Acute blood loss anemia/shock. Follow H&H. Stable, despite no obvious source of bleeding. Had sigmoid perf, but not obvious for blood loss. Got TXA, FFP. VTE ppx. Would still hold off for now. Possibly start ppx dose tomorrow. Will d/ w Dr. Butt. GUSTAVO. Cr improved. RA. Still on steroids. Probably reason for so many recurrent hernias. S: still on vent, more alert. O: abd softer vac to suction 03/07/17 11:05 Objective: Vital Signs Temp Pulse Resp BP Pulse Ox 36.7 C 84 26 H 124/54 H 96 03/07/17 04:00 03/07/17 09:00 03/07/17 09:00 03/07/17 09:00 03/07/17 09:00 Microbiology 03/01/17 20:05 Blood Culture - Final Blood 03/01/17 20:05 Blood Culture - Final Blood Laboratory Results 03/07/17 05:20 03/07/17 05:20 03/06/17 03/07/17 03/08/17 05:59 05:59 05:59 Intake Total 3955.8 3133 Output Total 3250 2045 Balance 705.8 1088 PT 16.5 SEC (12.0-15.0) H 03/06/17 10:35 INR 1.31 (0.83-1.16) H 03/06/17 10:35 ICD10 Worksheet Patient Problems: Problems Problem Status Onset Diarrhea Acute Diarrhea with dehydration Acute Incarcerated ventral hernia Acute Pneumonia Acute
--- NOTE | 2017-03-07 11:03 | PDINTPN ---
[employer] Analyst Progress Note Assessment/Plan: Assessment: 76 M admitted 02/25/17 for semi-elective ventral hernia redo. No reported comps at the time of surgery, but developed hypotension, melena, and anemia 03/04 and was transferred to the ICU. Abdominal XRs showed new free air, so he was transfused and returned to the OR where he was found to have a perforation of the sigmoid colon. This was oversewn with plans to return 03/06 for a second look. Minimal contamination of the peritoneum reported. Just preop, he also had EGD that showed only esophagitis, but no obvious source of bleeding. * Hypovolemic shock related to bleeding. Hgb up 3 points after 2 PRBCs yesterday. * Peritonitis- currently stable. Started on Zosyn/flagyl. Wound looks good, washout yesterday unremarkable. * Acute respiratory failure 2/2 shock- stable on minimal vent settings. No return to OR planned, weaning parameters OK for extubation. * COPD - relatively stable- some wheezing today * RA- he has been on chronic steroids at previously high dose, but now on 5 mg/ day. Would favor minimizing additional steroids to help with wound healing, currently Solumedrol 10/day. * H/o DVT- will need pharmacologic AC when cleared by surgery Plan: Extubate. Continue low-dose steroids, primarily as adrenal replacement/ stress dose. Follow H/H. Resume anticoagulation when OK per Dr. Butt, hopefully tomorrow. 03/07/17 11:20 03/07/17 11:23 Subjective: More alert, anxious to get ETT out. C/O pain at times despite IV fentanyl gtt. Objective: Vital Signs Temp Pulse Resp BP Pulse Ox 36.7 C 84 26 H 124/54 H 96 03/07/17 04:00 03/07/17 09:00 03/07/17 09:00 03/07/17 09:00 03/07/17 09:00 Microbiology 03/01/17 20:05 Blood Culture - Final Blood 03/01/17 20:05 Blood Culture - Final Blood Laboratory Results 03/07/17 05:20 03/07/17 05:20 03/06/17 03/07/17 03/08/17 05:59 05:59 05:59 Intake Total 3955.8 3133 Output Total 3250 2045 Balance 705.8 1088 PT 16.5 SEC (12.0-15.0) H 03/06/17 10:35 INR 1.31 (0.83-1.16) H 03/06/17 10:35 Physical Exam - Physical Exam General Appearance: alert, no apparent distress EENT: normal ENT inspection Neck: normal inspection Respiratory: lungs clear, crackles, wheezing Cardiac/Chest: regular rate, rhythm, No edema Abdomen: non-tender (diffusely mildy tender), No normal bowel sounds (absent) Skin: normal color, warm/dry Extremities: normal inspection Neuro/Psych: no motor/sensory deficits, alert, normal mood/affect, oriented x 3 ICD10 Worksheet Patient Problems: Problems Problem Status Onset Diarrhea Acute Diarrhea with dehydration Acute Incarcerated ventral hernia Acute Pneumonia Acute
[2017-03-07] MEDS: FOLIC ACID 1 MG TAB PO SCH (11:41)
[2017-03-07] MEDS: LEFLUNOMIDE 20 MG TAB PO SCH (11:41)
[2017-03-07] MEDS: SENNOSIDES/DOCUSATE SODIUM TAB PO SCH ×2 (11:41→22:46)
[2017-03-07] MEDS: HYDROmorphONE/DILAUDID 6 MG/30 ML PCA IV PRN (12:22)
--- NOTE | 2017-03-07 13:48 | PCMIDPN ---
Assessment/Plan: Assessment/Plan: 1. Peritonitis secondary to perforated sigmoid: - s/p repair, - currently on empiric zosyn and fluconazole. - wbc flucutating. will follow trend -blood cx ngtd form 03/01/17 -creatinine improved. - Meds zosyn fluconazole Subjective: afebrile. remains in icu. extubated today. on face mask. c/o abd pain. denies nausea. Breathing stable. Objective: Vital Signs Temp Pulse Resp BP Pulse Ox 36.7 C 80 19 151/64 H 97 03/07/17 04:00 03/07/17 12:00 03/07/17 12:00 03/07/17 12:00 03/07/17 12:00 Microbiology 03/01/17 20:05 Blood Culture - Final Blood 03/01/17 20:05 Blood Culture - Final Blood Laboratory Results 03/07/17 05:20 03/07/17 05:20 03/06/17 03/07/17 03/08/17 05:59 05:59 05:59 Intake Total 3955.8 3133 Output Total 3250 2045 Balance 705.8 1088 - Physical Exam General Appearance: alert, no apparent distress Respiratory: lungs clear Cardiac/Chest: regular rate, rhythm Extremities: No swelling Abdomen: distended, other (bs quiet. midline wound vac noted.) Skin: No erythema ICD10 Worksheet Patient Problems: Problems Problem Status Onset Diarrhea Acute Diarrhea with dehydration Acute Incarcerated ventral hernia Acute Pneumonia Acute
[2017-03-07] MEDS: D5W 1/2 NS W/ 20 KCl/L 1,000 ML IV SCH (14:01)
--- NOTE | 2017-03-07 14:13 | ASMTCMCOM ---
CM Note CM Note Notes: Patient was extubated today and started working with Therapies. Therapy recommendation at this time is SNF Rehab. Met with , Blanca in "Family Meeting". They live in [facility] and very happy with [facility]. Talked about need for rehab on discharge. Will give Medicare.gov recommendations. Date Signed: 03/07/2017 02:09 PM Electronically Signed By:Brooklynn Zavala LCSW
--- NOTE | 2017-03-07 15:17 | HOSPPROG ---
Hospitalist Progress Note Assessment/Plan: # sigmoid perforation s/p oversew repair by Dr Butt - cont empiric zosyn; will get ID consult for help with abx - to OR today # ventral hernia s/p repair POD#[address] Butt # GI bleed with melena - may have been sigmoid? also has esophagitis - s/p EGD yesterday with esophagitis - Dr Treviño started empiric fluconazole for possible candidal esophagitis # ABLA - hgb lower today; possible blood loss in wound vac -s/p 2U PRBC # hyperglycemia - placed on insulin gtt yesterday - much better controlled - stop insulin gtt, follow closely - on slightly higher steroid dose than baseline # acute respiratory failure - extubated # GUSTAVO - pre-renal; better post sigmoid repair # acute on chronic (nocturnal O2) resp failure - d/t pna, pulm edema # COPD, possible exacerbation - steroids, zosyn # pulmonary edema - consider Lasix, recheck chest x-ray in the morning # ?pneumonia - zosyn D#6 # CAD - L base akinetic, elevated trop - no CP, needs ischemic eval at some point # chronic steroid use - increase steroid dose # RA - leflunamide, steroids Subjective: Feels crummy overall Objective: Vital Signs Temp Pulse Resp BP Pulse Ox 36.7 C 80 20 148/69 H 98 03/07/17 04:00 03/07/17 14:00 03/07/17 14:00 03/07/17 14:00 03/07/17 14:00 Microbiology 03/01/17 20:05 Blood Culture - Final Blood 03/01/17 20:05 Blood Culture - Final Blood Laboratory Results 03/07/17 05:20 03/07/17 05:20 03/06/17 03/07/17 03/08/17 05:59 05:59 05:59 Intake Total 3955.8 3133 Output Total 3250 2045 Balance 705.8 1088 PT 16.5 SEC (12.0-15.0) H 03/06/17 10:35 INR 1.31 (0.83-1.16) H 03/06/17 10:35 - Physical Exam Constitutional: no apparent distress, appears nourished, not in pain Eyes: anicteric sclera, EOMI Ears, Nose, Mouth, Throat: moist mucous membranes, hearing normal Cardiovascular: regular rate and rhythym, no murmur, rub, or gallop Respiratory: no respiratory distress, no rales or rhonchi, clear to auscultation Gastrointestinal: soft, non-tender abdomen, distension, No normoactive bowel sounds Neurologic: AAOx3 Psychiatric: interacting appropriately, not anxious, not encephalopathic, thought process linear ICD10 Worksheet Patient Problems: Problems Problem Status Onset Diarrhea Acute Diarrhea with dehydration Acute Incarcerated ventral hernia Acute Pneumonia Acute
--- NOTE | 2017-03-07 17:48 | POSTANESTH ---
Post Anesthetic Evaluation Cardiovascular Status: Similar to Pre-Op Cond Respiratory Status: Similar to Pre-op Cond. Level of Consciousness/Mental Status: Unconscious Pain Control: Adequate, Prn Tx Ordered Nausea/Vomiting Control: Adequate, Prn Tx Ordered Complications Possibly Related to Anesthesia: None Noted (patient transported to [facility] intubated, full monitoring, 100% O2 ambubag)
[2017-03-07] MEDS: MELATONIN 3 MG TAB PO SCH (22:45)
[2017-03-07] MEDS: TEMAZEPAM 15 MG CAP PO SCH (22:46)
[2017-03-07] MEDS: TERAZOSIN HCL 2 MG CAP PO SCH (22:46)
[2017-03-08] MEDS: D5W 1/2 NS W/ 20 KCl/L 1,000 ML IV SCH ×2 (02:26→18:11)
[2017-03-08] MEDS: PIPERACILLIN/TAZO 3.375 GM/DEX 50 ML IV SCH ×4 (02:26→21:45)
[2017-03-08 04:38] LABS: PLATELET COUNT 193 10^3/uL (150-400)
[2017-03-08] MEDS: FOLIC ACID 1 MG TAB PO SCH (08:16)
[2017-03-08] MEDS: LEFLUNOMIDE 20 MG TAB PO SCH (08:16)
[2017-03-08] MEDS: methylPREDNISolone SOD SUCC 40 MG/ML VIAL IVP SCH (08:16)
[2017-03-08] MEDS: PANTOPRAZOLE SODIUM 40 MG VIAL IVP SCH ×2 (08:17→21:46)
[2017-03-08] MEDS: SENNOSIDES/DOCUSATE SODIUM TAB PO SCH ×2 (08:43→22:29)
[2017-03-08] MEDS: FLUCONAZOLE/NaCl 100 MG in BAG 0 ML IV SCH (09:00)
[2017-03-08] MEDS: Tiotropium Br/Olodaterol Hcl [Stiolto Respimat Inhal Spray] 4 GM IH SCH ×2 (09:03→19:47)
--- NOTE | 2017-03-08 12:05 | PCMIDPN ---
Assessment/Plan: Assessment: Peritonitis following a sigmoid perforation after ventral hernia repair. Blood cultures negative. No guiding intraoperative cultures. Patient continues on Zosyn and fluconazole. Clinically improving. Extubated. WBC is mildly elevated and stable. No fevers Plan: 1. Continue both Zosyn and fluconazole. 2. Follow laboratory values as well as clinical signs. 03/08/17 17:26 Subjective: Patient is resting in his hospital bed. He notes that he feels better today. No fevers or chills. Still with some abdominal pain. Objective: Zosyn # 6 Fluconazole # 4 Vital Signs Temp Pulse Resp BP Pulse Ox 36.1 C 79 22 H 167/75 H 96 03/08/17 08:00 03/08/17 09:04 03/08/17 09:04 03/08/17 08:00 03/08/17 09:04 Microbiology 03/01/17 20:05 Blood Culture - Final Blood 03/01/17 20:05 Blood Culture - Final Blood Laboratory Results 03/08/17 04:15 03/08/17 04:15 03/07/17 03/08/17 03/09/17 05:59 05:59 05:59 Intake Total 3133 2233 Output Total 2044 2024 Balance 1088 208 - Physical Exam General Appearance: WD/WN, alert, no apparent distress, non-toxic Respiratory: lungs clear, normal breath sounds, No respiratory distress Cardiac/Chest: regular rate, rhythm, No tachycardia Abdomen: soft, distended (Mildly), No non-tender Skin: normal color, warm/dry, No rash Neuro/Psych: alert, normal mood/affect, oriented x 3 ICD10 Worksheet Patient Problems: Problems Problem Status Onset Diarrhea Acute Diarrhea with dehydration Acute Incarcerated ventral hernia Acute Pneumonia Acute
--- NOTE | 2017-03-08 14:08 | WOCRNPDOC ---
WOCRN Advanced Assessment Note - Skin Integrity Problem, Advanced Assess midline incision Dressing Type: Black Vac Foam (x2), Wound Vac Dressing Description: Clean/Dry, Intact Exudate Amount: Minimal (cannister changed) Exudate Color: Reddish/Yellow Exudate Characteristic(s): Serosanguinous Integumentary Issue Intervention: Dressing Changed, Sutures Removed Lanette Wound Tissue: Intact Wound Bed Constitution: Red/[place] - Non Granular Tissue, Undermining (from 6 o' clock to 10 o'clock up to 3.3cm), Subcutaneous Fat Wound Edges: Attached, Well Defined Site Measurement - Head-to-Toe Length X Width X Depth (cm): 26x13.5x4.3 Skin Integrity Problem Comment: Draping removed and patient's hair clipped with clippers. Foam removed. Single suture cut from midline as patient could not tolerate removal of foam with this in place. Wound bed cleaned with NS and gauze. Wound edges prepped with skin prep and draped. Single large piece of black block foam cut to fit wound bed. Good seal achieved at -125mmHg. Patient tolerated the procedure well using his CREDIT OPERATIONS SPECIALIST periodically for pain control. Wound care will round again on Monday.
--- NOTE | 2017-03-08 15:19 | PDINTPN ---
Hotel Maintenance Technician Progress Note Assessment/Plan: Assessment: 76 M admitted 02/25/17 for semi-elective ventral hernia redo. No reported comps at the time of surgery, but developed hypotension, melena, and anemia 03/04 and was transferred to the ICU. Abdominal XRs showed new free air, so he was transfused and returned to the OR where he was found to have a perforation of the sigmoid colon. This was oversewn with plans to return 03/06 for a second look. Minimal contamination of the peritoneum reported. Just preop, he also had EGD that showed only esophagitis, but no obvious source of bleeding. * Hypovolemic shock related to bleeding. H/H stable * Peritonitis- currently stable. Started on Zosyn/flagyl. Wound looks good, washout yesterday unremarkable. * Acute respiratory failure 2/2 shock: Doing well since extubation. * COPD - relatively stable- wheezing resolved. * RA- he has been on chronic steroids at previously high dose, but now on 5 mg/ day. Would favor minimizing additional steroids to help with wound healing, currently Solumedrol 10/day. * H/o DVT- will need pharmacologic AC when cleared by surgery Plan: Extubate. Continue low-dose steroids, primarily as adrenal replacement/ stress dose. Follow H/H. Resume anticoagulation. Lasix, follow I/O. 03/08/17 15:24 03/08/17 15:25 Subjective: Feels OK, pain control good after WoundVac change. Slowly advancing PO intake. Objective: Vital Signs Temp Pulse Resp BP Pulse Ox 36.1 C 77 18 147/67 H 99 03/08/17 08:00 03/08/17 12:00 03/08/17 10:00 03/08/17 12:00 03/08/17 12:00 Microbiology 03/01/17 20:05 Blood Culture - Final Blood 03/01/17 20:05 Blood Culture - Final Blood Laboratory Results 03/08/17 04:15 03/08/17 04:15 03/07/17 03/08/17 03/09/17 05:59 05:59 05:59 Intake Total 3133 2233 Output Total 2044 2024 Balance 1088 208 PT 16.5 SEC (12.0-15.0) H 03/06/17 10:35 INR 1.31 (0.83-1.16) H 03/06/17 10:35 CXR: Fluid overload. Images reviewed by me. ICD10 Worksheet Patient Problems: Problems Problem Status Onset Diarrhea Acute Diarrhea with dehydration Acute Incarcerated ventral hernia Acute Pneumonia Acute
[2017-03-08] MEDS ORDERED: FUROSEMIDE 40 MG/4 ML VIAL IVP ONE (15:23)
[2017-03-08] MEDS: ENOXAPARIN 40 MG/0.4 ML SYR SC SCH (15:59)
--- NOTE | 2017-03-08 15:59 | HOSPPROG ---
Hospitalist Progress Note Assessment/Plan: # sigmoid perforation s/p oversew repair by Dr Butt - on antibiotics per ID # ventral hernia s/p repair with Dr Butt # GI bleed with melena - may have been sigmoid? also has esophagitis - s/p EGD yesterday with esophagitis - Dr Treviño started empiric fluconazole for possible candidal esophagitis # ABLA - stable -s/p 2U PRBC # hyperglycemia - continue sliding scale # acute respiratory failure - extubated # GUSTAVO - pre-renal; better post sigmoid repair # acute on chronic (nocturnal O2) resp failure - d/t pna, pulm edema # COPD, possible exacerbation - steroids, zosyn # pulmonary edema - consider Lasix, recheck chest x-ray in the morning # ?pneumonia - zosyn D#6 # CAD - L base akinetic, elevated trop - no CP, needs ischemic eval at some point # chronic steroid use - increase steroid dose # RA - leflunamide, steroids # depression - will try Wellbutrin Subjective: No new complaints. Has been depressed for some time even before surgery Objective: Vital Signs Temp Pulse Resp BP Pulse Ox 36.1 C 77 18 147/67 H 99 03/08/17 08:00 03/08/17 12:00 03/08/17 10:00 03/08/17 12:00 03/08/17 12:00 Laboratory Results 03/08/17 04:15 03/08/17 04:15 03/07/17 03/08/17 03/09/17 05:59 05:59 05:59 Intake Total 3133 2233 Output Total 2044 2024 Balance 1088 208 PT 16.5 SEC (12.0-15.0) H 03/06/17 10:35 INR 1.31 (0.83-1.16) H 03/06/17 10:35 Discussed with pulmonology and surgery - Physical Exam Constitutional: no apparent distress, appears nourished, not in pain Eyes: anicteric sclera, EOMI Ears, Nose, Mouth, Throat: moist mucous membranes, hearing normal Cardiovascular: regular rate and rhythym, no murmur, rub, or gallop Respiratory: no respiratory distress Gastrointestinal: other (Decreased bowel sounds large wound VAC) Skin: warm Neurologic: AAOx3 Psychiatric: interacting appropriately, not anxious, not encephalopathic, thought process linear, flat affect ICD10 Worksheet Patient Problems: Problems Problem Status Onset Diarrhea Acute Diarrhea with dehydration Acute Incarcerated ventral hernia Acute Pneumonia Acute
--- NOTE | 2017-03-08 20:12 | SOAPPROG ---
SOAP Progress Note Assessment/Plan: Assessment: STATUS POST VENTRAL HERNIA REPAIR/MINIMAL DRAINAGE/URINE OUTPUT OKAY/TOLERATING P.O./COMPLAINS OF PAIN AFEBRILE/VITAL SIGNS STABLE NEGATIVE BMS OR FLATUS/WOUND OKAY/ABDOMEN SOFT NONTENDER BUT SLIGHTLY DISTENDED Plan: CONTINUE PRESENT ORDERS 02/25/17 12:14 02/25/17 14:34 02/26/17 09:00 wound ok/ binder in place/ poor appetite/ +flatus and bm/ afebrile/ vs stable/ uo good/ home 1-2 days/ starting to mobilize 03/04/17 07:59 FEELING BETTER/ ABD SOFT/ WOUND OK/ UO OK/ EATING CAREFULLY/ WANTS TO GO HOME IN AM 03/04/17 08:32 sudden development of melena with hct 21/ abd soft, nontender/afebrile/ wound ok / minimal lionel drains small amount of possible free air on cxr plan check coags, gi consult 03/06/17 10:09 vs stable, uo good/ hct down to 22/ back to or today for washout and possible closure 03/08/17 20:10 PATIENT ALERT/VITAL SIGNS STABLE/URINE OUTPUT GOOD/WOUND VAC IN PLACE AND FUNCTIONING WELL/ABDOMEN SOFT WITH POSITIVE BOWEL SOUNDS/AFEBRILE PLAN FOR WOUND VAC CHANGE TODAY AND TISSUE GRANULATING WELL/PLAN TRANSFER TO [facility] IN CONTINUE WOUND VAC Objective: Vital Signs Temp Pulse Resp BP Pulse Ox 36.1 C 76 20 164/71 H 98 03/08/17 08:00 03/08/17 16:00 03/08/17 16:00 03/08/17 16:00 03/08/17 16:00 Laboratory Results 03/08/17 04:15 03/08/17 04:15 03/07/17 03/08/17 03/09/17 05:59 05:59 05:59 Intake Total 3133 2233 1200 Output Total 2044 2024 800 Balance 1088 208 400 PT 16.5 SEC (12.0-15.0) H 03/06/17 10:35 INR 1.31 (0.83-1.16) H 03/06/17 10:35 ICD10 Worksheet Patient Problems: Problems Problem Status Onset Diarrhea Acute Diarrhea with dehydration Acute Incarcerated ventral hernia Acute Pneumonia Acute
[2017-03-08] MEDS: TERAZOSIN HCL 2 MG CAP PO SCH (21:45)
[2017-03-08] MEDS: MELATONIN 3 MG TAB PO SCH (21:45)
[2017-03-08] MEDS: TEMAZEPAM 15 MG CAP PO SCH (21:45)
[2017-03-09] MEDS: PIPERACILLIN/TAZO 3.375 GM/DEX 50 ML IV SCH ×4 (02:20→21:23)
[2017-03-09] MEDS: HYDROmorphONE/DILAUDID 6 MG/30 ML PCA IV PRN (02:38)
[2017-03-09] MEDS: D5W 1/2 NS W/ 20 KCl/L 1,000 ML IV SCH (06:31)
[2017-03-09] MEDS: Tiotropium Br/Olodaterol Hcl [Stiolto Respimat Inhal Spray] 4 GM IH SCH ×3 (09:36→21:47)
[2017-03-09] MEDS: PANTOPRAZOLE SODIUM 40 MG VIAL IVP SCH ×2 (10:17→21:23)
[2017-03-09] MEDS: methylPREDNISolone SOD SUCC 40 MG/ML VIAL IVP SCH (10:19)
[2017-03-09] MEDS: ENOXAPARIN 40 MG/0.4 ML SYR SC SCH (10:22)
[2017-03-09] MEDS: FOLIC ACID 1 MG TAB PO SCH (10:22)
[2017-03-09] MEDS: LEFLUNOMIDE 20 MG TAB PO SCH (10:22)
[2017-03-09] MEDS: buPROPion SR 100 MG TAB PO SCH (10:22)
[2017-03-09] MEDS: SENNOSIDES/DOCUSATE SODIUM TAB PO SCH ×2 (10:23→22:03)
[2017-03-09] MEDS: FLUCONAZOLE/NaCl 100 MG in BAG 0 ML IV SCH (13:20)
--- NOTE | 2017-03-09 15:12 | ASMTCMCOM ---
CM Note CM Note Notes: Pt will need SNF. CM spoke w/pt and regarding SNF; their first choice is [facility]. [facility]. CM will follow. Date Signed: 03/09/2017 03:11 PM Electronically Signed By:Luba Arguello RN
--- NOTE | 2017-03-09 18:24 | HOSPPROG ---
Hospitalist Progress Note Assessment/Plan: # sigmoid perforation s/p oversew repair by Dr Butt - on antibiotics per ID # ventral hernia s/p repair with Dr Butt # GI bleed with melena - may have been sigmoid? also has esophagitis - s/p EGD with esophagitis - Dr Treviño started empiric fluconazole for possible candidal esophagitis # ABLA - stable -s/p 2U PRBC # hyperglycemia - continue sliding scale # acute respiratory failure - extubated # GUSTAVO - pre-renal; better post sigmoid repair # acute on chronic (nocturnal O2) resp failure - d/t pna, pulm edema # COPD, possible exacerbation - steroids, zosyn # pulmonary edema - consider Lasix, recheck chest x-ray in the morning # ?pneumonia - zosyn # CAD - L base akinetic, elevated trop - no CP, needs ischemic eval at some point # chronic steroid use - increase steroid dose # RA - leflunamide, steroids # depression - will try Wellbutrin Subjective: no new complaints Objective: Vital Signs Temp Pulse Resp BP Pulse Ox 36.8 C 72 18 150/74 H 94 03/09/17 17:47 03/09/17 17:47 03/09/17 17:47 03/09/17 17:47 03/09/17 17:47 Laboratory Results 03/08/17 04:15 03/08/17 04:15 03/08/17 03/09/17 03/10/17 05:59 05:59 05:59 Intake Total 2233 1200 Output Total 5 800 375 Balance 208 400 -375 PT 16.5 SEC (12.0-15.0) H 03/06/17 10:35 INR 1.31 (0.83-1.16) H 03/06/17 10:35 - Physical Exam Constitutional: no apparent distress, appears nourished, not in pain Eyes: anicteric sclera, EOMI Cardiovascular: regular rate and rhythym, no murmur, rub, or gallop Respiratory: no respiratory distress, no rales or rhonchi, clear to auscultation Gastrointestinal: normoactive bowel sounds (decreased), soft, non-tender abdomen Skin: warm Neurologic: AAOx3 Psychiatric: interacting appropriately, not anxious, not encephalopathic, thought process linear ICD10 Worksheet Patient Problems: Problems Problem Status Onset Diarrhea Acute Diarrhea with dehydration Acute Incarcerated ventral hernia Acute Pneumonia Acute
--- NOTE | 2017-03-09 19:13 | PCMIDPN ---
Assessment/Plan: Assessment/Plan: * Peritonitis secondary to sigmoid perforation: Continue empiric Zosyn and fluconazole as no culture data available to guide therapy. Likely to require 10 -14 day course postoperatively. Could consider transition to oral levofloxacin/ Flagyl/fluconazole if tolerating p.o. intake. Currently has right femoral triple-lumen catheter as access which ideally could be limited in duration if possible has apparently could not have PICC line placed successfully. 03/09/17 19:09 Subjective: Patient feels better now that has started diet. Mild abdominal discomfort present. Objective: Vital Signs Temp Pulse Resp BP Pulse Ox 36.8 C 72 18 150/74 H 94 03/09/17 17:47 03/09/17 17:47 03/09/17 17:47 03/09/17 17:47 03/09/17 17:47 Laboratory Results 03/08/17 04:15 03/08/17 04:15 03/08/17 03/09/17 03/10/17 05:59 05:59 05:59 Intake Total 2233 1200 Output Total 2025 800 375 Balance 208 400 -375 Zosyn # 7 Fluconazole # 5 - Physical Exam General Appearance: alert, no apparent distress EENT: No scleral icterus, No thrush Cardiac/Chest: regular rate, rhythm, systolic murmur (2/6 left upper sternal border ) Abdomen: non-tender, other (Wound VAC in place over abdominal wound without surrounding erythema), No distended - Line/s other Lines: other (Right femoral triple-lumen catheter), No drainage, No erythema ICD10 Worksheet Patient Problems: Problems Problem Status Onset Diarrhea Acute Diarrhea with dehydration Acute Incarcerated ventral hernia Acute Pneumonia Acute
[2017-03-09] MEDS: TEMAZEPAM 15 MG CAP PO SCH (21:23)
[2017-03-09] MEDS: TERAZOSIN HCL 2 MG CAP PO SCH (21:23)
[2017-03-09] MEDS: MELATONIN 3 MG TAB PO SCH (21:23)
[2017-03-10] MEDS: PIPERACILLIN/TAZO 3.375 GM/DEX 50 ML IV SCH ×4 (02:24→21:08)
[2017-03-10] MEDS: D5W 1/2 NS W/ 20 KCl/L 1,000 ML IV SCH (02:25)
[2017-03-10 05:45] LABS: PLATELET COUNT 169 10^3/uL (150-400)
[2017-03-10] MEDS: Tiotropium Br/Olodaterol Hcl [Stiolto Respimat Inhal Spray] 4 GM IH SCH ×2 (08:51→20:24)
--- NOTE | 2017-03-10 09:34 | SOAPPROG ---
SOAP Progress Note Assessment/Plan: Assessment: STATUS POST VENTRAL HERNIA REPAIR/MINIMAL DRAINAGE/URINE OUTPUT OKAY/TOLERATING P.O./COMPLAINS OF PAIN AFEBRILE/VITAL SIGNS STABLE NEGATIVE BMS OR FLATUS/WOUND OKAY/ABDOMEN SOFT NONTENDER BUT SLIGHTLY DISTENDED Plan: CONTINUE PRESENT ORDERS 02/25/17 12:14 02/25/17 14:34 02/26/17 09:00 wound ok/ binder in place/ poor appetite/ +flatus and bm/ afebrile/ vs stable/ uo good/ home 1-2 days/ starting to mobilize 03/04/17 07:59 FEELING BETTER/ ABD SOFT/ WOUND OK/ UO OK/ EATING CAREFULLY/ WANTS TO GO HOME IN AM 03/04/17 08:32 sudden development of melena with hct 21/ abd soft, nontender/afebrile/ wound ok / minimal lionel drains small amount of possible free air on cxr plan check coags, gi consult 03/06/17 10:09 vs stable, uo good/ hct down to 22/ back to or today for washout and possible closure 03/08/17 20:10 PATIENT ALERT/VITAL SIGNS STABLE/URINE OUTPUT GOOD/WOUND VAC IN PLACE AND FUNCTIONING WELL/ABDOMEN SOFT WITH POSITIVE BOWEL SOUNDS/AFEBRILE PLAN FOR WOUND VAC CHANGE TODAY AND TISSUE GRANULATING WELL/PLAN TRANSFER TO [facility] IN CONTINUE WOUND VAC 03/10/17 09:33 feeling better/ wound ok/ afebrile/ eating ok/ vac change today/ home 2-3 days Objective: Vital Signs Temp Pulse Resp BP Pulse Ox 36.7 C 74 18 155/74 H 94 03/10/17 07:46 03/10/17 08:55 03/10/17 08:55 03/10/17 07:46 03/10/17 08:55 Laboratory Results 03/10/17 05:30 03/10/17 05:30 03/09/17 03/10/17 03/11/17 05:59 05:59 05:59 Intake Total 1200 Output Total 800 375 125 Balance 400 -375 -125 PT 16.5 SEC (12.0-15.0) H 03/06/17 10:35 INR 1.31 (0.83-1.16) H 03/06/17 10:35 ICD10 Worksheet Patient Problems: Problems Problem Status Onset Diarrhea Acute Diarrhea with dehydration Acute Incarcerated ventral hernia Acute Pneumonia Acute
[2017-03-10] MEDS: ENOXAPARIN 40 MG/0.4 ML SYR SC SCH (09:47)
[2017-03-10] MEDS: PANTOPRAZOLE SODIUM 40 MG VIAL IVP SCH (09:48)
[2017-03-10] MEDS: methylPREDNISolone SOD SUCC 40 MG/ML VIAL IVP SCH (09:48)
[2017-03-10] MEDS: SENNOSIDES/DOCUSATE SODIUM TAB PO SCH ×2 (09:49→21:09)
[2017-03-10] MEDS: FOLIC ACID 1 MG TAB PO SCH (09:50)
[2017-03-10] MEDS: buPROPion SR 100 MG TAB PO SCH (09:50)
[2017-03-10] MEDS: LEFLUNOMIDE 20 MG TAB PO SCH (09:50)
[2017-03-10] MEDS: FLUCONAZOLE/NaCl 100 ML IV SCH (09:59)
[2017-03-10] MEDS ORDERED: D50W 25 GM/50 ML SYR IVP PRN (11:50)
[2017-03-10] MEDS: INSULIN REGULAR HUMAN 100 UNIT/ML UNIT SC SCH ×3 (12:30→21:08)
[2017-03-10] MEDS: HYDROmorphONE/DILAUDID 1 MG/ML INJ IVP PRN (13:36)
--- NOTE | 2017-03-10 14:09 | PCMIDPN ---
Assessment/Plan: Polymicrobial Peritonitis s/p 03/04 sigmoid repair, midline wound today without purulence, tiny bit of serosang leakage. no erythema around wound. Generally improving, AF and wbc trending down. No micro. --continue Zosyn for now --tentatively plan 2 weeks of therapy Access: 03/04 fem line placed, ordered PICC line as timing of transition of IV meds not clear based on my exam today and needs ongoing IV access but Fem line needs to be removed. Difficult PIV access --PICC line ordered, discussed with Dr. Santiago patterson zosyn 3.375gm IV q6h, #9 fluconazole 200mg IV daily #7 Subjective: no c/o +flatus, BMs Objective: Vital Signs Temp Pulse Resp BP Pulse Ox 36.7 C 69 20 162/86 H 97 03/10/17 07:46 03/10/17 11:42 03/10/17 11:42 03/10/17 11:42 03/10/17 11:42 Laboratory Results 03/10/17 05:30 03/10/17 05:30 03/09/17 03/10/17 03/11/17 05:59 05:59 05:59 Intake Total 1200 Output Total 800 375 125 Balance 400 -375 -125 - Physical Exam General Appearance: alert, no apparent distress Respiratory: lungs clear, No accessory muscle use Cardiac/Chest: regular rate, rhythm Abdomen: non-tender, soft, other (large open abdominal wound, facia closed; scattered granulation and few tiny areas of darker tissue, tiny bit of sersang fluid with increased intra-abdominal pressure through sutured midine facial incision, no erythema of skin) Skin: No rash Neuro/Psych: alert, normal mood/affect, oriented x 3 - Line/s other Lines: drainage, other (R fem line , dressing partially falling off) - Time Spent With Patient Time Spent with Patient: greater than 35 minutes (reviewed labs and plan for line change with patient and .) Time Spent with Patient: Greater than 35 minutes spent on this patients care, greater than 50% of time spent counseling, educating, and coordinating care regarding the above mentioned plan. ICD10 Worksheet Patient Problems: Problems Problem Status Onset Diarrhea Acute Diarrhea with dehydration Acute Incarcerated ventral hernia Acute Pneumonia Acute
[2017-03-10] MEDS: HYDROmorphONE/DILAUDID 6 MG/30 ML PCA IV PRN (14:21)
--- NOTE | 2017-03-10 14:46 | WOCRNPDOC ---
WOCRN Advanced Assessment Note - Skin Integrity Problem, Advanced Assess Abdomen Surgical Wound/Incision Dressing Type: Black Vac Foam (1 piece removed), Wound Vac Dressing Description: Intact Exudate Amount: Minimal Exudate Color: Reddish/Yellow Exudate Characteristic(s): Serosanguinous Integumentary Issue Intervention: Dressing Changed Lanette Wound Tissue: Intact Lanette Wound Swelling: None Wound Bed Color: Black, [employer], Red, Yellow Wound Bed Constitution: Granulation Tissue (30%), Red/[employer] - Non Granular Tissue (60%), Undermining (4cm from 7-9 o'clock; 3.5cm @ 4 o'clock), Mixed Loose & Adhered Slough/Eschar (10%) Wound Edges: Epithelizing Site Odor: None Site Measurement - Head-to-Toe Length X Width X Depth (cm): 42dye67.5cmx3.5cm Skin Integrity Problem Comment: Dr. Kathryn Torrez present to visualize wound. Large, midline abdominal wound w/ closed fascia at base, some trace adhered necrotic tissue along L lateral margin. Scattered granulation throughout. Placed one small piece of black foam into undermined area from 7-9 o'clock, and covered remaining wound bed with large block of Granufoam cut to fit the wound bed. Vac settings resume at -125mmHg low, continuous suction, no apparent leak. Patient tolerated dressing change very well, using his TILE AND MARBLE INSTALLER for pain control. In addition, he was administered 1mg Dilaudid prior to dressing change. Next dressing change planned for Monday 03/13. TILE AND MARBLE INSTALLER Elizabeth Ge assisting throughout dressing change.
--- NOTE | 2017-03-10 17:58 | HOSPPROG ---
Hospitalist Progress Note Assessment/Plan: Assessment: 76 yo M p/w ventral hernia repair c/b sigmoid perforation and resultant bacterial peritonitis Plan: # sigmoid perforation w/ resultant bacterial peritonitis s/p oversew repair by Dr Butt - cont on Zosyn, appreciate ID consultation, adjusted to PICC today from femoral line # ventral hernia s/p repair with Dr Butt # acute suspected upper GI hemorrhage with melena - d/w Dr. Butt, he reports that it is unclear if this was from bleeding esophagitis (no blood seen in stomach on EGD) vs. sigmoid, although I suspect w/ the melena it was upper source - Dr Treviño started empiric fluconazole for possible candidal esophagitis, cont PPI # ABLA - 2/2 UGIB -s/p 2U PRBC - repeat Hgb in AM # hyperglycemia - continue ISS # GUSTAVO - 2/2 hypovolemia in setting of perf and infxn, improved s/p IVF - repeat Cr in AM # acute on chronic (nocturnal O2) resp failure - d/t pna, pulm edema - cont 2LPM # COPD, possible exacerbation - s/p steroid burst, weaned to 10 methylpred daily - will d/w patient adjusting to PO home dose tomorrow # acute diastolic CHF exacerbation - evidenced by pulm edema and pleural effusions on CXR (personally interpreted) w/ BNP 2,500, Echo w/ preserved EF and akinetic basal inferolateral wall - will rec stress test prior to discharge - holding further lasix, will reassess in AM # possible pneumonia - zosyn # possible CAD - L base akinetic, elevated trop # chronic steroid use - consider titrating to home dose in AM # RA - leflunamide, steroids # depression - will try Wellbutrin, started 2/2 diet. regular ppx. lovenox 40 code. full dispo. ADD uncertain, remains ill w/ frequent surg/ID assessments High level of medical complexity, high risk of worsening morbidity 2/2 issues outlined above. Subjective: R should discomfort w/ motion, had BM today Objective: Vital Signs Temp Pulse Resp BP Pulse Ox 36.7 C 64 18 146/75 H 92 03/10/17 15:59 03/10/17 15:59 03/10/17 15:59 03/10/17 15:59 03/10/17 15:59 Laboratory Results 03/10/17 05:30 03/10/17 05:30 03/09/17 03/10/17 03/11/17 05:59 05:59 05:59 Intake Total 1200 Output Total 800 375 525 Balance 400 -375 -525 PT 16.5 SEC (12.0-15.0) H 03/06/17 10:35 INR 1.31 (0.83-1.16) H 03/06/17 10:35 - Physical Exam Constitutional: no apparent distress, not in pain, chronically ill appearing, No uncomfortable Cardiovascular: systolic murmur (II/ at sternum), No irregularly irregular, No tachycardia, No edema Respiratory: reduced air movement (bilat bases), inspiratory crackles, No expiratory wheeze, No bronchial breath sounds, No respiratory distress Gastrointestinal: normoactive bowel sounds, soft, non-tender abdomen, no palpable masses, other (central wound vac), No distension Skin: No erythema, No induration, No fluctuance, No other (no tenderness around vac) Musculoskeletal: other (mild tenderness over R should deltoid mid tendon) Neurologic: AAOx3, sensation intact bilaterally, No weakness Psychiatric: interacting appropriately, not anxious, not encephalopathic, thought process linear ICD10 Worksheet Patient Problems: Problems Problem Status Onset Diarrhea Acute Diarrhea with dehydration Acute Incarcerated ventral hernia Acute Pneumonia Acute
[2017-03-10] MEDS: MELATONIN 3 MG TAB PO SCH (21:09)
[2017-03-10] MEDS: PANTOPRAZOLE SODIUM 40 MG TAB PO SCH (21:09)
[2017-03-10] MEDS: TERAZOSIN HCL 2 MG CAP PO SCH (21:09)
[2017-03-10] MEDS: TEMAZEPAM 15 MG CAP PO SCH (21:09)
[2017-03-11] MEDS: PIPERACILLIN/TAZO 3.375 GM/DEX 50 ML IV SCH ×4 (02:22→21:49)
[2017-03-11 05:27] LABS: PLATELET COUNT 159 10^3/uL (150-400)
[2017-03-11] MEDS: Tiotropium Br/Olodaterol Hcl [Stiolto Respimat Inhal Spray] 4 GM IH SCH ×2 (08:19→22:18)
[2017-03-11] MEDS: INSULIN REGULAR HUMAN 100 UNIT/ML UNIT SC SCH ×4 (08:28→21:50)
[2017-03-11] MEDS: FOLIC ACID 1 MG TAB PO SCH (08:38)
[2017-03-11] MEDS: buPROPion SR 100 MG TAB PO SCH (08:39)
[2017-03-11] MEDS: LEFLUNOMIDE 20 MG TAB PO SCH (08:39)
[2017-03-11] MEDS: predniSONE 5 MG TAB PO SCH (08:39)
[2017-03-11] MEDS: ENOXAPARIN 40 MG/0.4 ML SYR SC SCH (08:39)
[2017-03-11] MEDS: SENNOSIDES/DOCUSATE SODIUM TAB PO SCH ×2 (09:49→22:00)
[2017-03-11] MEDS: FLUCONAZOLE/NaCl 100 ML IV SCH (10:19)
[2017-03-11] MEDS: PANTOPRAZOLE SODIUM 40 MG TAB PO SCH ×2 (10:19→21:50)
--- NOTE | 2017-03-11 10:59 | PCMIDPN ---
Assessment/Plan: Polymicrobial Peritonitis s/p 03/04 sigmoid repair. Clinically stable today. Sl WBC elevation unchanged, AF, a little more vigorous today. No micro data --continue empiric Zosyn and fluconazole for now for coverage of typical GI pathogens; no toxicity noted Cr nl, LFTs nl 03/10 --tentatively plan 2 weeks of antibiotic therapy from 03/04, stop date 03/18 meds zosyn 3.375gm IV q6h, #10 fluconazole 200mg IV daily #8 Subjective: mild mid abdominal pain PICC line placed tomorrow without difficulty Objective: Vital Signs Temp Pulse Resp BP Pulse Ox 36.5 C 73 16 145/71 H 93 03/11/17 10:00 03/11/17 10:00 03/11/17 10:00 03/11/17 10:00 03/11/17 10:00 Laboratory Results 03/11/17 05:18 03/11/17 05:18 03/10/17 03/11/17 03/12/17 05:59 05:59 05:59 Intake Total 650 Output Total 375 1025 Balance -375 -375 - Physical Exam General Appearance: alert, no apparent distress Respiratory: other (decreased bs bases), No accessory muscle use Neck: supple Cardiac/Chest: regular rate, rhythm Extremities: other (mild generalized edema) Abdomen: non-tender, soft, other (large midline wound vac in place; skin surrounding WNL) Male Genitalia: scrotal edema (mild), No ramírez Skin: pallor, No jaundice Neuro/Psych: alert, normal mood/affect, oriented x 3 - Line/s RUE PICC Lines: No drainage, No erythema - Time Spent With Patient Time Spent with Patient: greater than 25 minutes Time Spent with Patient: Greater than 25 minutes spent on this patients care, greater than 50% of time spent counseling, educating, and coordinating care regarding the above mentioned plan. ICD10 Worksheet Patient Problems: Problems Problem Status Onset Diarrhea Acute Diarrhea with dehydration Acute Incarcerated ventral hernia Acute Pneumonia Acute
--- NOTE | 2017-03-11 12:36 | SOAPPROG ---
SOAP Progress Note Assessment/Plan: Assessment: STATUS POST VENTRAL HERNIA REPAIR/MINIMAL DRAINAGE/URINE OUTPUT OKAY/TOLERATING P.O./COMPLAINS OF PAIN AFEBRILE/VITAL SIGNS STABLE NEGATIVE BMS OR FLATUS/WOUND OKAY/ABDOMEN SOFT NONTENDER BUT SLIGHTLY DISTENDED Plan: CONTINUE PRESENT ORDERS 02/25/17 12:14 02/25/17 14:34 02/26/17 09:00 wound ok/ binder in place/ poor appetite/ +flatus and bm/ afebrile/ vs stable/ uo good/ home 1-2 days/ starting to mobilize 03/04/17 07:59 FEELING BETTER/ ABD SOFT/ WOUND OK/ UO OK/ EATING CAREFULLY/ WANTS TO GO HOME IN AM 03/04/17 08:32 sudden development of melena with hct 21/ abd soft, nontender/afebrile/ wound ok / minimal lionel drains small amount of possible free air on cxr plan check coags, gi consult 03/06/17 10:09 vs stable, uo good/ hct down to 22/ back to or today for washout and possible closure 03/08/17 20:10 PATIENT ALERT/VITAL SIGNS STABLE/URINE OUTPUT GOOD/WOUND VAC IN PLACE AND FUNCTIONING WELL/ABDOMEN SOFT WITH POSITIVE BOWEL SOUNDS/AFEBRILE PLAN FOR WOUND VAC CHANGE TODAY AND TISSUE GRANULATING WELL/PLAN TRANSFER TO [facility] IN CONTINUE WOUND VAC 03/10/17 09:33 feeling better/ wound ok/ afebrile/ eating ok/ vac change today/ home 2-3 days 03/11/17 12:35 FEELING BETTER/ WOUND INTACT IN [place]AY/ AFEBRILE/HOPEFULLY REHAB NEXT WEEK Objective: Vital Signs Temp Pulse Resp BP Pulse Ox 36.6 C 69 22 H 171/90 H 93 03/11/17 12:00 03/11/17 12:00 03/11/17 12:00 03/11/17 12:00 03/11/17 12:00 Laboratory Results 03/11/17 05:18 03/11/17 05:18 03/10/17 03/11/17 03/12/17 05:59 05:59 05:59 Intake Total 650 Output Total 375 1025 Balance -375 -375 PT 16.5 SEC (12.0-15.0) H 03/06/17 10:35 INR 1.31 (0.83-1.16) H 03/06/17 10:35 ICD10 Worksheet Patient Problems: Problems Problem Status Onset Diarrhea Acute Diarrhea with dehydration Acute Incarcerated ventral hernia Acute Pneumonia Acute
--- NOTE | 2017-03-11 15:38 | HOSPPROG ---
Hospitalist Progress Note Assessment/Plan: Assessment: 76 yo M p/w ventral hernia repair c/b sigmoid perforation and resultant bacterial peritonitis Plan: # sigmoid perforation w/ resultant bacterial peritonitis s/p oversew repair by Dr Butt - cont on Zosyn, appreciate ID consultation, via PICC - d/w Dr. Butt, he agrees OK for patient to advance to solid foods # ventral hernia s/p repair with Dr Butt # acute suspected upper GI hemorrhage with melena - d/w Dr. Butt, he reports that it is unclear if this was from bleeding esophagitis (no blood seen in stomach on EGD) vs. sigmoid, although I suspect w/ the melena it was upper source - empiric fluconazole for possible candidal esophagitis, cont PPI # ABLA - 2/2 UGIB - s/p 2U PRBC - repeat Hgb 9.6 # hyperglycemia - continue ISS # GUSTAVO - 2/2 hypovolemia in setting of perf and infxn, improved s/p IVF # acute on chronic (nocturnal O2) resp failure - evidenced by SpO2 86%, objective tachypnea w/ RR 30+, requiring up to 8 LPM high flow o2, symptomatic shortness of breath, d/t pna, pulm edema - cont 2LPM # COPD, possible exacerbation - s/p steroid burst, weaned to home 5mg pred daily # acute diastolic CHF exacerbation - evidenced by pulm edema and pleural effusions on CXR w/ BNP 2,500, Echo w/ preserved EF and akinetic basal inferolateral wall # possible pneumonia - zosyn # possible CAD - L base akinetic, elevated trop - counseled patient and that a stress test prior to DC (on 03/13) would be recommended so that patient can know whether he has at-risk vessel/territory going into rehab, would recommend comparing echo hypokinesis to prior stress/ echo but patient had those performed at an outside center and not cards office/ imaging center, will get lexiscan given his recent wound # chronic steroid use - consider titrating to home dose in AM # RA - leflunamide, steroids # depression - will try Wellbutrin, started 2/2 diet. regular ppx. lovenox 40 code. full dispo. ADD uncertain, remains ill w/ frequent surg/ID assessments Subjective: some central abd pain, amenable to adding PO Rx Objective: Vital Signs Temp Pulse Resp BP Pulse Ox 36.7 C 66 20 155/86 H 96 03/11/17 14:00 03/11/17 14:00 03/11/17 14:00 03/11/17 14:00 03/11/17 14:00 Laboratory Results 03/11/17 05:18 03/11/17 05:18 03/10/17 03/11/17 03/12/17 05:59 05:59 05:59 Intake Total 650 Output Total 375 1025 Balance -375 -375 PT 16.5 SEC (12.0-15.0) H 03/06/17 10:35 INR 1.31 (0.83-1.16) H 03/06/17 10:35 - Time Spent With Patient Time Spent with Patient: greater than 35 minutes Time Spent with Patient: Greater than 35 minutes spent on this patients care, greater than 50% of time spent counseling, educating, and coordinating care regarding the above mentioned plan. - Physical Exam Constitutional: no apparent distress, chronically ill appearing, uncomfortable, No not in pain (mild) Cardiovascular: systolic murmur (I/ at sternum), edema (trace bilat LE), No irregularly irregular, No tachycardia Respiratory: inspiratory crackles, No reduced air movement, No expiratory wheeze , No bronchial breath sounds, No respiratory distress Gastrointestinal: normoactive bowel sounds, tenderness (around wound vac site), distension (mild), other (central wound vac) Skin: No erythema (around wound vac) Neurologic: AAOx3 Psychiatric: interacting appropriately, not anxious, not encephalopathic, thought process linear ICD10 Worksheet Patient Problems: Problems Problem Status Onset Diarrhea Acute Diarrhea with dehydration Acute Incarcerated ventral hernia Acute Pneumonia Acute
--- NOTE | 2017-03-11 15:53 | ASMTCMCOM ---
CM Note CM Note Notes: Pt accepted to [facility] pending insurance authorization, is aware. Dc not likely until Monday. DC Plan: [facility] Date Signed: 03/11/2017 03:52 PM Electronically Signed By:Merissa Atkinson RN
[2017-03-11] MEDS: HYDROmorphONE/DILAUDID 6 MG/30 ML PCA IV PRN (17:06)
[2017-03-11] MEDS: IBUPROFEN 600 MG TAB PO PRN (17:06)
[2017-03-11] MEDS: OXYCODONE/APAP 5/325 TAB PO PRN (17:07)
[2017-03-11] MEDS: MELATONIN 3 MG TAB PO SCH (21:50)
[2017-03-11] MEDS: TEMAZEPAM 15 MG CAP PO SCH (21:50)
[2017-03-11] MEDS: TERAZOSIN HCL 2 MG CAP PO SCH (21:50)
[2017-03-12] MEDS: PIPERACILLIN/TAZO 3.375 GM/DEX 50 ML IV SCH ×4 (03:03→19:59)
[2017-03-12 04:56] LABS: PLATELET COUNT 153 10^3/uL (150-400)
[2017-03-12] MEDS: INSULIN REGULAR HUMAN 100 UNIT/ML UNIT SC SCH ×4 (09:29→20:51)
[2017-03-12] MEDS: LEFLUNOMIDE 20 MG TAB PO SCH (09:44)
[2017-03-12] MEDS: SENNOSIDES/DOCUSATE SODIUM TAB PO SCH ×2 (09:45→20:06)
[2017-03-12] MEDS: buPROPion SR 100 MG TAB PO SCH (09:45)
[2017-03-12] MEDS: predniSONE 5 MG TAB PO SCH (09:45)
[2017-03-12] MEDS: PANTOPRAZOLE SODIUM 40 MG TAB PO SCH ×2 (09:45→20:07)
[2017-03-12] MEDS: ENOXAPARIN 40 MG/0.4 ML SYR SC SCH (09:46)
[2017-03-12] MEDS: FOLIC ACID 1 MG TAB PO SCH (09:46)
[2017-03-12] MEDS: HYDROmorphONE/DILAUDID 2 MG TAB PO PRN ×2 (09:47→20:09)
[2017-03-12] MEDS ORDERED: FUROSEMIDE 40 MG/4 ML VIAL IVP ONE (10:36)
[2017-03-12] MEDS: FLUCONAZOLE/NaCl 100 ML IV SCH (10:36)
--- NOTE | 2017-03-12 10:43 | HOSPPROG ---
Hospitalist Progress Note Assessment/Plan: Assessment: 76 yo M p/w ventral hernia repair c/b sigmoid perforation and resultant bacterial peritonitis and acutely worsening dCHF and atrial fibrillation Plan: # sigmoid perforation w/ resultant bacterial peritonitis s/p oversew repair by Dr Butt - cont on Zosyn, appreciate ID consultation, via PICC - communicated w/ Dr. Butt, given increase in abd distension and lethargy, get stat upright abd x-ray to eval for free air # ventral hernia s/p repair with Dr Butt # acute diastolic CHF exacerbation - evidenced by pulm edema and pleural effusions on CXR w/ BNP 2,500, Echo w/ preserved EF and akinetic basal inferolateral wall - suspect acute worsening today w/ net positive 2.5L o/n - give 40mg IV lasix now - get CXR - if lethargy worsening today, will get ABG to eval whether needs BiPAP # atrial fibrillation - acute RVR, new problem to this provider, further w/u indicated. likely provoked by acute illness, patient reports that he has had Afib before but review of his records during this hospitalization (EKG w/ RBBB/ NSR and H&Ps) do not reveal this - present on tele, personally interpreted - currently maintaining rates 100-110, hold on dmitriy blocking agents given possibly worsening CHF - hold on systemic anticoagulation for CVA ppx until we figure out whether there is a surgical issues unfolding presently - get trop/EKG now to r/o ischemia - hold on repeating Echo, would benefit more from a lexiscan prior to DC # acute suspected upper GI hemorrhage with melena - unclear if this was from bleeding esophagitis (no blood seen in stomach on EGD) vs. sigmoid, although I suspect w/ the melena it was upper source - empiric fluconazole for possible candidal esophagitis, cont PPI # ABLA - 2/2 UGIB - s/p 2U PRBC - repeat Hgb 10.6 # hyperglycemia - continue ISS # GUSTAVO - 2/2 hypovolemia in setting of perf and infxn, monitor Cr while giving lasix # acute on chronic (nocturnal O2) resp failure - evidenced by SpO2 86%, objective tachypnea w/ RR 30+, requiring up to 8 LPM high flow o2, symptomatic shortness of breath, d/t pna, pulm edema - cont 2.5LPM # COPD, possible exacerbation - s/p steroid burst, weaned to home 5mg pred daily , resolved # possible pneumonia - zosyn # possible CAD - L base akinetic, elevated trop - counseled patient and that a stress test prior to DC would be recommended so that patient can know whether he has at-risk vessel/territory going into rehab, would recommend comparing echo hypokinesis to prior stress/ echo but patient had those performed at an outside center and not cards office/ imaging center, will get lexiscan if/when patient agrees, hold off while he is acutely ill # chronic steroid use - cont home dose # RA - leflunamide, steroids # depression - will try Wellbutrin, started 2/2 diet. regular ppx. lovenox 40 code. full dispo. 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 Objective: Vital Signs Temp Pulse Resp BP Pulse Ox 36.6 C 98 24 H 154/76 H 92 03/12/17 10:00 03/12/17 10:00 03/12/17 10:00 03/12/17 10:00 03/12/17 10:00 Laboratory Results 03/12/17 04:42 03/12/17 04:42 03/11/17 03/12/17 03/13/17 05:59 05:59 05:59 Intake Total 650 3719 206 Output Total 1025 1200 50 Balance -375 2519 156 PT 16.5 SEC (12.0-15.0) H 03/06/17 10:35 INR 1.31 (0.83-1.16) H 03/06/17 10:35 - Physical Exam Constitutional: chronically ill appearing, obese, uncomfortable, No no apparent distress (mild) Cardiovascular: systolic murmur (I/ at sternum), irregularly irregular, tachycardia, edema (trace bilat LE) Respiratory: reduced air movement (bilat bases), inspiratory crackles, respiratory distress (visibly tachypneic), No expiratory wheeze, No bronchial breath sounds Gastrointestinal: tenderness (around wound vac), distension (moderate w/ central wound vac), No normoactive bowel sounds (absent bowel sounds), No guarding Skin: other (no necrosis/induration around wound vac, mildly tender, soft tissue edema), No erythema Neurologic: AAOx3, No weakness (motor 5/5 bilat LE), No facial droop Psychiatric: not anxious, flat affect, other (lethargic but arousable to verbal stimuli), No agitated ICD10 Worksheet Patient Problems: Problems Problem Status Onset Diarrhea Acute Diarrhea with dehydration Acute Incarcerated ventral hernia Acute Pneumonia Acute
[2017-03-12] MEDS: IBUPROFEN 600 MG TAB PO PRN ×2 (10:46→20:07)
[2017-03-12] MEDS: MDI IH PRN (11:20)
[2017-03-12] MEDS: ALBUTEROL IH PRN (11:20)
[2017-03-12] MEDS: Tiotropium Br/Olodaterol Hcl [Stiolto Respimat Inhal Spray] 4 GM IH SCH ×2 (11:20→22:53)
--- NOTE | 2017-03-12 11:49 | CPEKG ---
Heart Rate: 109 RR Interval: 550 QRSD Interval: 106 QT Interval: 360 QTC Interval: 485 QRS [place]: 23 T Wave [place]: -33 EKG Severity - ABNORMAL ECG - EKG Impression: ATRIAL FIBRILLATION, V-RATE 82-140 EKG Impression: RIGHT BUNDLE BRANCH BLOCK EKG Impression: BORDERLINE PROLONGED QT INTERVAL Electronically Signed By: French Salazar 13-Mar-2017 08:04:13
--- NOTE | 2017-03-12 12:04 | PCMIDPN ---
Assessment/Plan: Polymicrobial Peritonitis s/p 03/04 sigmoid repair. Clinically stable today. WBC sl up today, AF, new Atrial fib, crackles in base of lung. Abdominal exam stable --continue empiric Zosyn and fluconazole for now for coverage of typical GI pathogens; no toxicity based on labs :Cr nl, LFTs nl 03/10 --tentatively plan 2 weeks of antibiotic therapy from 03/04, stop date 03/18 --agree with CXR, KUB --would repeat blood cultures --re-eval wound tomorrow with wound vac change meds zosyn 3.375gm IV q6h, #11 fluconazole 200mg IV daily #9 Subjective: afib today transient mental status decline this AM no diarrhea Objective: Vital Signs Temp Pulse Resp BP Pulse Ox 36.7 C 102 H 18 132/65 H 93 03/12/17 11:49 03/12/17 11:49 03/12/17 11:49 03/12/17 11:49 03/12/17 11:49 Laboratory Results 03/12/17 04:42 03/12/17 04:42 03/11/17 03/12/17 03/13/17 05:59 05:59 05:59 Intake Total 650 3719 206 Output Total 1025 1200 50 Balance -375 2519 156 - Physical Exam General Appearance: alert, no apparent distress EENT: pale conjunctiva, No scleral icterus, No thrush Respiratory: crackles (B bases), No accessory muscle use Cardiac/Chest: tachycardia, irregularly irregular Extremities: No pedal edema Abdomen: normal bowel sounds, non-tender, soft, other (large wound vac in place) Neuro/Psych: alert, normal mood/affect, oriented x 3 - Line/s LUE PICC Lines: No drainage, No erythema - Time Spent With Patient Time Spent with Patient: greater than 35 minutes (Patient examined w Dr. Butt and care was coordinated. Reviewed plans with patient and his ) Time Spent with Patient: Greater than 35 minutes spent on this patients care, greater than 50% of time spent counseling, educating, and coordinating care regarding the above mentioned plan. ICD10 Worksheet Patient Problems: Problems Problem Status Onset Diarrhea Acute Diarrhea with dehydration Acute Incarcerated ventral hernia Acute Pneumonia Acute
--- NOTE | 2017-03-12 13:36 | SOAPPROG ---
SOAP Progress Note Assessment/Plan: Assessment: STATUS POST VENTRAL HERNIA REPAIR/MINIMAL DRAINAGE/URINE OUTPUT OKAY/TOLERATING P.O./COMPLAINS OF PAIN AFEBRILE/VITAL SIGNS STABLE NEGATIVE BMS OR FLATUS/WOUND OKAY/ABDOMEN SOFT NONTENDER BUT SLIGHTLY DISTENDED Plan: CONTINUE PRESENT ORDERS 02/25/17 12:14 02/25/17 14:34 02/26/17 09:00 wound ok/ binder in place/ poor appetite/ +flatus and bm/ afebrile/ vs stable/ uo good/ home 1-2 days/ starting to mobilize 03/04/17 07:59 FEELING BETTER/ ABD SOFT/ WOUND OK/ UO OK/ EATING CAREFULLY/ WANTS TO GO HOME IN AM 03/04/17 08:32 sudden development of melena with hct 21/ abd soft, nontender/afebrile/ wound ok / minimal lionel drains small amount of possible free air on cxr plan check coags, gi consult 03/06/17 10:09 vs stable, uo good/ hct down to 22/ back to or today for washout and possible closure 03/08/17 20:10 PATIENT ALERT/VITAL SIGNS STABLE/URINE OUTPUT GOOD/WOUND VAC IN PLACE AND FUNCTIONING WELL/ABDOMEN SOFT WITH POSITIVE BOWEL SOUNDS/AFEBRILE PLAN FOR WOUND VAC CHANGE TODAY AND TISSUE GRANULATING WELL/PLAN TRANSFER TO [facility] IN CONTINUE WOUND VAC 03/10/17 09:33 feeling better/ wound ok/ afebrile/ eating ok/ vac change today/ home 2-3 days 03/11/17 12:35 FEELING BETTER/ WOUND INTACT IN [place]/ AFEBRILE/HOPEFULLY REHAB NEXT WEEK 03/12/17 13:34 Seems to be doing well today/ however has developed AFib/abdomen soft nontender/wound VAC in place and working/active bowel sounds with active flatus and some BM Afebrile/WBC 11 K Questionable cause of his AFib Objective: Vital Signs Temp Pulse Resp BP Pulse Ox 36.7 C 102 H 18 132/65 H 93 03/12/17 11:49 03/12/17 11:49 03/12/17 11:49 03/12/17 11:49 03/12/17 11:49 Laboratory Results 03/12/17 04:42 03/12/17 04:42 03/11/17 03/12/17 03/13/17 05:59 05:59 05:59 Intake Total 650 3719 206 Output Total 1025 1200 50 Balance -375 3319 156 PT 16.5 SEC (12.0-15.0) H 03/06/17 10:35 INR 1.31 (0.83-1.16) H 03/06/17 10:35 ICD10 Worksheet Patient Problems: Problems Problem Status Onset Diarrhea Acute Diarrhea with dehydration Acute Incarcerated ventral hernia Acute Pneumonia Acute
[2017-03-12] MEDS: TEMAZEPAM 15 MG CAP PO SCH (20:06)
[2017-03-12] MEDS: TERAZOSIN HCL 2 MG CAP PO SCH (20:06)
[2017-03-12] MEDS: MELATONIN 3 MG TAB PO SCH (20:06)
[2017-03-13] MEDS: PIPERACILLIN/TAZO 3.375 GM/DEX 50 ML IV SCH ×4 (01:56→20:11)
[2017-03-13] MEDS: HYDROmorphONE/DILAUDID 2 MG TAB PO PRN ×3 (01:56→12:38)
[2017-03-13 05:54] LABS: PLATELET COUNT 139 10^3/uL (150-400)
[2017-03-13] MEDS: INSULIN REGULAR HUMAN 100 UNIT/ML UNIT SC SCH ×4 (08:34→21:27)
--- NOTE | 2017-03-13 08:40 | HOSPPROG ---
Hospitalist Progress Note Assessment/Plan: # a-fib with RVR in setting of physiologic stress - now in NSR - hold AC with melena - hold metop now that in NSR - cont tele # sigmoid perforation s/p oversew repair by Dr Butt - cont zosyn/fluconazole, tentative stop date 03/18 # ventral hernia s/p repair by Dr Butt # GI bleed with melena - unclear source # esophagitis - fungal stain negative - cont protonix 40 po bid # ABLA - s/p 5U PRBC # hyperglycemia - A1c 6% - cont SSI insulin # acute respiratory failure - resolved; off mechanical ventilation # GUSTAVO in setting of sigmoid perforation; resolved # acute on chronic (nocturnal O2) resp failure - much better, likely close to baseline # COPD, possible exacerbation - resolved # ?pna - covered with zosyn # CAD - L base akinetic, elevated trop - no CP, needs ischemic eval at some point # chronic steroid use - on baseline prednisone 5mg # RA - leflunamide, steroids # depr - started on wellbutrin Subjective: feels much better than the last time I saw him; having daily BMs; eating ok Objective: Vital Signs Temp Pulse Resp BP Pulse Ox 36.6 C 73 24 H 138/65 H 90 L 03/13/17 07:46 03/13/17 07:46 03/13/17 07:46 03/13/17 07:46 03/13/17 07:46 Laboratory Results 03/13/17 05:30 03/13/17 05:30 03/12/17 03/13/17 03/14/17 05:59 05:59 05:59 Intake Total 3719 456 410 Output Total 1200 350 Balance 2519 106 410 PT 16.5 SEC (12.0-15.0) H 03/06/17 10:35 INR 1.31 (0.83-1.16) H 03/06/17 10:35 chart reviewed CXR and AXR personally reviewed - Physical Exam Constitutional: no apparent distress, appears nourished Cardiovascular: regular rate and rhythym, systolic murmur, No irregularly irregular, No diastolic murmur Respiratory: no respiratory distress, no rales or rhonchi, clear to auscultation Gastrointestinal: normoactive bowel sounds, soft, non-tender abdomen, other ([place]) ICD10 Worksheet Patient Problems: Problems Problem Status Onset Incarcerated ventral hernia Acute Pneumonia Acute Diarrhea with dehydration Acute Diarrhea Acute
[2017-03-13] MEDS: Tiotropium Br/Olodaterol Hcl [Stiolto Respimat Inhal Spray] 4 GM IH SCH ×2 (09:25→20:26)
[2017-03-13] MEDS: LEFLUNOMIDE 20 MG TAB PO SCH (09:51)
[2017-03-13] MEDS: predniSONE 5 MG TAB PO SCH (09:52)
[2017-03-13] MEDS: SENNOSIDES/DOCUSATE SODIUM TAB PO SCH ×2 (09:52→20:12)
[2017-03-13] MEDS: buPROPion SR 100 MG TAB PO SCH (09:52)
[2017-03-13] MEDS: FOLIC ACID 1 MG TAB PO SCH (09:52)
[2017-03-13] MEDS: PANTOPRAZOLE SODIUM 40 MG TAB PO SCH ×2 (09:52→20:11)
[2017-03-13] MEDS: ENOXAPARIN 40 MG/0.4 ML SYR SC SCH (09:53)
[2017-03-13] MEDS: FLUCONAZOLE/NaCl 100 ML IV SCH (09:54)
--- NOTE | 2017-03-13 12:39 | SOAPPROG ---
JUAN PABLO Progress Note Assessment/Plan: Assessment/Plan: 76 Y M s/p recurrent ventral hernia repair, 02/24. peritonitis, s/p exlap with repair of sigmoid perforation and washout with abthera wound vac , 03/04. s/p washout, fascial closure with biologic mesh and wound vac, 03/06. Overall doing well, aside from afib yesterday. Appreciate medicine input. ARF, COPD. Extubated. on 2L nc. Sigmoid perforation repaired. VH repaired c biologic mesh. Hernia recurrence risk high. Appreciate ID input. On fluconozole and zosyn. Wound vac change today. D/w'ed wound care. Acute blood loss anemia. Stable. VTE ppx. On lovenox. GUSTAVO. Cr improved. RA. Still on steroids. Probably reason for so many recurrent hernias. Dispo: eventually to SNF, try to plan for Monday after vac change pending medicine clearance. Small possibility he could go back to OR for delayed primary closure of wound. S: not much pain. has appetite, eating. O: alert, nad, smiling--for possibly the first time this hospital stay. no wob abd softer vac to suction 03/13/17 12:33 Objective: Vital Signs Temp Pulse Resp BP Pulse Ox 37.1 C 74 16 141/79 H 94 03/13/17 12:00 03/13/17 12:00 03/13/17 12:00 03/13/17 12:00 03/13/17 12:00 Laboratory Results 03/13/17 05:30 03/13/17 05:30 03/12/17 03/13/17 03/14/17 05:59 05:59 05:59 Intake Total 3719 456 410 Output Total 1200 350 200 Balance 2519 106 210 PT 16.5 SEC (12.0-15.0) H 03/06/17 10:35 INR 1.31 (0.83-1.16) H 03/06/17 10:35 ICD10 Worksheet Patient Problems: Problems Problem Status Onset Diarrhea Acute Diarrhea with dehydration Acute Incarcerated ventral hernia Acute Pneumonia Acute
--- NOTE | 2017-03-13 13:40 | WOCRNPDOC ---
WOCRN Advanced Assessment Note - Skin Integrity Problem, Advanced Assess Abdomen Surgical Wound/Incision Dressing Type: Black Vac Foam (x2), Wound Vac Dressing Description: Clean/Dry, Intact Closure Description: Retention Sutures Exudate Amount: Scant Exudate Characteristic(s): Serosanguinous Integumentary Issue Intervention: Dressing Changed Lanette Wound Tissue: Swollen Lanette Wound Swelling: Mild Wound Bed Color: Brown, Red, Yellow, [place], White Wound Bed Constitution: Granulation Tissue (20%), Red/[place] - Non Granular Tissue (30%), Undermining (7-10 oclock 4.2 cm, also small pocket/undermining/ tunnel at 3 oclocl 5.3 cm), Subcutaneous Fat (necrotic areas ), Loose Slough Site Measurement - Head-to-Toe Length X Width X Depth (cm): 24x15.5x5 Skin Integrity Problem Comment: Flushed with ns. Areas of necrotic fat noted with a new area of tunneling/undermining around 3 oclock. That area and the underming at 7-10 oclock were packed with thin black granulafoam pieces. One large black piece placed on wound bed and then a 4th and final piece used to fill in the 3 oclock portion. Vac restarted at -125 mm Hg continuous suction without any leaks. Jyoti Henderson updated. Gay HEATH and Elizabeth LEIGH assisted with change. at bedside. Questions answered. Next change due Wed.
--- NOTE | 2017-03-13 14:11 | ASMTCMCOM ---
CM Note CM Note Notes: CM sent updates to [facility]. The plan remains the same. Pt will d/c to [facility] when medically stable. Anticipates d/c for [facility]. CM to follow. Plan: [facility] Date Signed: 03/13/2017 02:11 PM Electronically Signed By:TREVIN Lora
--- NOTE | 2017-03-13 18:40 | PCMIDPN ---
Assessment/Plan: Assessment: Peritonitis following a sigmoid perforation after ventral hernia repair. Blood cultures negative. No guiding intraoperative cultures. Patient continues on Zosyn and fluconazole. Continues to clinically improve. Biggest issue now is deconditioning. Plan antibiotic course through 03/18/2017. Plan: 1. Continue both Zosyn and fluconazole through 03/18/17. 2. Follow laboratory values as well as clinical signs. Subjective: Patient resting comfortably in his hospital bed. No new complaints. States that his legs ache from using them to support himself while he uses the bathroom. No fevers or chills. Abdominal complaints improved. Objective: Zosyn # 12 Fluconazole # 10 Vital Signs Temp Pulse Resp BP Pulse Ox 37.1 C 76 16 150/75 H 94 03/13/17 16:00 03/13/17 16:00 03/13/17 16:00 03/13/17 16:00 03/13/17 16:00 Laboratory Results 03/13/17 05:30 03/13/17 05:30 03/12/17 03/13/17 03/14/17 05:59 05:59 05:59 Intake Total 3719 456 880 Output Total 1200 350 500 Balance 2519 106 380 - Physical Exam General Appearance: WD/WN, alert, no apparent distress, non-toxic Respiratory: lungs clear, normal breath sounds, No respiratory distress Cardiac/Chest: regular rate, rhythm, No tachycardia Skin: normal color, warm/dry, No rash Neuro/Psych: alert, normal mood/affect, oriented x 3 ICD10 Worksheet Patient Problems: Problems Problem Status Onset Diarrhea Acute Diarrhea with dehydration Acute Incarcerated ventral hernia Acute Pneumonia Acute
[2017-03-13] MEDS: HYDROmorphONE/DILAUDID 6 MG/30 ML PCA IV PRN (19:23)
[2017-03-13] MEDS: TERAZOSIN HCL 2 MG CAP PO SCH (20:11)
[2017-03-13] MEDS: MELATONIN 3 MG TAB PO SCH (20:11)
[2017-03-13] MEDS: TEMAZEPAM 15 MG CAP PO SCH (20:12)
[2017-03-14] MEDS: PIPERACILLIN/TAZO 3.375 GM/DEX 50 ML IV SCH ×4 (03:20→22:21)
[2017-03-14] MEDS: INSULIN REGULAR HUMAN 100 UNIT/ML UNIT SC SCH ×3 (08:38→19:08)
[2017-03-14] MEDS: Tiotropium Br/Olodaterol Hcl [Stiolto Respimat Inhal Spray] 4 GM IH SCH ×2 (09:45→21:08)
[2017-03-14] MEDS: FOLIC ACID 1 MG TAB PO SCH (09:55)
[2017-03-14] MEDS: FLUCONAZOLE/NaCl 100 ML IV SCH (09:55)
[2017-03-14] MEDS: LEFLUNOMIDE 20 MG TAB PO SCH (09:55)
[2017-03-14] MEDS: predniSONE 5 MG TAB PO SCH (09:55)
[2017-03-14] MEDS: PANTOPRAZOLE SODIUM 40 MG TAB PO SCH (09:55)
[2017-03-14] MEDS: buPROPion XL 150 MG TAB PO SCH (09:55)
[2017-03-14] MEDS: SENNOSIDES/DOCUSATE SODIUM TAB PO SCH (09:56)
[2017-03-14] MEDS: ENOXAPARIN 40 MG/0.4 ML SYR SC SCH (09:56)
[2017-03-14] MEDS: ALBUTEROL IH PRN (10:56)
[2017-03-14] MEDS: MDI IH PRN (10:56)
[2017-03-14] MEDS: HYDROmorphONE/DILAUDID 2 MG TAB PO PRN ×2 (11:23→13:20)
--- NOTE | 2017-03-14 11:55 | HOSPPROG ---
Hospitalist Progress Note Assessment/Plan: # general maliase - unclear why he feels worse today - check labs; consider abd imaging # a-fib with RVR in setting of physiologic stress - now in NSR - hold full dose AC with melena - hold metop now that in NSR - cont tele - personally reviewed # sigmoid perforation s/p oversew repair by Dr Butt - cont zosyn/fluconazole, tentative stop date 03/18 # ventral hernia s/p repair by Dr Butt # GI bleed with melena - unclear source - resolved # esophagitis - fungal stain negative - cont protonix 40 po bid # ABLA - s/p 5U PRBC # hyperglycemia - A1c 6% - cont SSI insulin # acute respiratory failure - resolved; off mechanical ventilation # GUSTAVO in setting of sigmoid perforation; resolved # acute on chronic (nocturnal O2) resp failure - much better, likely close to baseline # COPD, possible exacerbation - resolved # ?pna - covered with zosyn # CAD - L base akinetic, elevated trop - no CP, needs ischemic eval at some point # chronic steroid use - on baseline prednisone 5mg # RA - leflunamide, steroids # depr - started on wellbutrin Subjective: feels poorly today - c/o general weakness/malaise; possibly worse abd pain but no N/V, having BMs Objective: Vital Signs Temp Pulse Resp BP Pulse Ox 37.2 C 74 18 143/68 H 92 03/14/17 07:22 03/14/17 10:00 03/14/17 10:00 03/14/17 10:00 03/14/17 10:00 Laboratory Results 03/13/17 05:30 03/13/17 05:30 03/13/17 03/14/17 03/15/17 05:59 05:59 05:59 Intake Total 456 930 Output Total 350 700 325 Balance 106 230 -325 PT 16.5 SEC (12.0-15.0) H 03/06/17 10:35 INR 1.31 (0.83-1.16) H 03/06/17 10:35 high risk with worse malaise - Physical Exam Constitutional: uncomfortable Cardiovascular: regular rate and rhythym, systolic murmur, No irregularly irregular, No diastolic murmur Respiratory: no respiratory distress, no rales or rhonchi, clear to auscultation Gastrointestinal: normoactive bowel sounds, other (soft, TTP L side), No box' s sign, No guarding, No rebound ICD10 Worksheet Patient Problems: Problems Problem Status Onset Incarcerated ventral hernia Acute Pneumonia Acute Diarrhea with dehydration Acute Diarrhea Acute
[2017-03-14 12:36] LABS: PLATELET COUNT 129 10^3/uL (150-400)
--- NOTE | 2017-03-14 14:06 | PCMIDPN ---
Assessment/Plan: Polymicrobial Peritonitis s/p 03/04 spontaneous sigmoid perf and repair. s/p 4 ventral hernia repair only facial closed and wound vac in place. WBC continue to increases, increased malaise, abdominal pain stable, low grade temp 99 --obtain CT abd/pelvis w contrast to eval for underlying abscess --continue current antibiotics meds zosyn 3.375gm IV q6h, #13 fluconazole 200mg IV daily #11 Subjective: feels weaker today Objective: Vital Signs Temp Pulse Resp BP Pulse Ox 37.2 C 77 20 147/60 H 92 03/14/17 07:22 03/14/17 12:00 03/14/17 12:00 03/14/17 12:00 03/14/17 12:00 Laboratory Results 03/14/17 12:30 03/14/17 12:30 03/13/17 03/14/17 03/15/17 05:59 05:59 05:59 Intake Total 456 930 237 Output Total 350 700 425 Balance 106 230 -188 Gen: Chr ill appearing, pallor HEENT good dentition, no oral ulcerations no thrush Neck supple RUE PICC c/d/i CV RRR Chest: decrease bs bases Abd: large wound vac in place +BS normal, no erythema, mild discomfort to generalized palpation Ext: SCDs in place no ramírez - Time Spent With Patient Time Spent with Patient: greater than 35 minutes (care coordinated with Dr. Morrow and Dr Key; reviewed plan of evaluation and antibiotics with patient and ) Time Spent with Patient: Greater than 35 minutes spent on this patients care, greater than 50% of time spent counseling, educating, and coordinating care regarding the above mentioned plan. ICD10 Worksheet Patient Problems: Problems Problem Status Onset Diarrhea Acute Diarrhea with dehydration Acute Incarcerated ventral hernia Acute Pneumonia Acute
--- NOTE | 2017-03-14 15:19 | SOAPPROG ---
SOAP Progress Note Assessment/Plan: Assessment/Plan: 76 Y M s/p recurrent ventral hernia repair, 02/24. peritonitis, s/p exlap with repair of sigmoid perforation and washout with abthera wound vac , 03/04. s/p washout, fascial closure with biologic mesh and wound vac, 03/06. D/w'ed ID and seen with Dr. Butt. Worsened leukocytosis today. Abd/Pel CT today. Feeling weak. Slow to progress. S: not much pain. has appetite, eating. feels very weak--especially his legs O: alert, nad no wob abd softer vac to suction strong dorsi and plantar flexion and hip flexion, tested in bed 03/14/17 15:17 Objective: Vital Signs Temp Pulse Resp BP Pulse Ox 37.2 C 72 20 150/84 H 93 03/14/17 14:00 03/14/17 14:00 03/14/17 14:00 03/14/17 14:00 03/14/17 14:00 Laboratory Results 03/14/17 12:30 03/14/17 12:30 03/13/17 03/14/17 03/15/17 05:59 05:59 05:59 Intake Total 456 930 237 Output Total 350 700 425 Balance 106 230 -188 PT 16.5 SEC (12.0-15.0) H 03/06/17 10:35 INR 1.31 (0.83-1.16) H 03/06/17 10:35 ICD10 Worksheet Patient Problems: Problems Problem Status Onset Diarrhea Acute Diarrhea with dehydration Acute Incarcerated ventral hernia Acute Pneumonia Acute
[2017-03-14] MEDS ORDERED: IOPAMIDOL (ISOVUE-300) 100 ML BTL ONE (17:11)
[2017-03-14] MEDS: ACETAMINOPHEN 325 MG TAB PO PRN (19:54)
[2017-03-14] MEDS ORDERED: D5W 1/2 NS 1,000 ML IV SCH (20:00)
[2017-03-14] MEDS ORDERED: BUPIVACAINE 0.5% 30 ML SDV ONE (21:09)
[2017-03-14] MEDS ORDERED: fentaNYL 100 MCG/2 ML INJ ONE (21:15)
[2017-03-14] MEDS ORDERED: PROPOFOL 200 MG/20 ML VIAL ONE (21:15)
[2017-03-14] MEDS ORDERED: LR 1,000 ML IV ONE (21:31)
--- NOTE | 2017-03-14 21:41 | PDANEPAE ---
ANE History of Present Illness 76 yo M recent complicated hospital course, now here for ex-lap ANE Past Medical History - Cardiovascular History Hx Hypertension: Yes Hx Arrhythmias: Yes Hx Chest Pain: No Hx Coronary Artery / Peripheral Vascular Disease: No Hx CHF / Valvular Disease: No Hx Palpitations: No Cardiovascular History Comment: murmur. a-fib - Pulmonary History Hx COPD: Yes Hx Asthma/Reactive Airway Disease: No Hx Recent Upper Respiratory Infection: No Hx Oxygen in Use at Home: No Hx Sleep Apnea: Yes Sleep Apnea Screening Result - Last Documented: Positive Pulmonary History Comment: PE - Neurologic History Hx Cerebrovascular Accident: No Hx Seizures: No Hx Dementia: No - Endocrine History Hx Diabetes: No - Renal History Hx Renal Disorders: Yes Renal History Comment: bph - Liver History Hx Hepatic Disorders: No - Neurological & Psychiatric Hx Hx Neurological and Psychiatric Disorders: No - Cancer History Hx Cancer: Yes Cancer History Comment: colon - Congenital Disorder History Hx Congenital Disorders: No - GI History Hx Gastrointestinal Disorders: Yes Gastrointestinal History Comment: colon ca - Other Health History Other Health History: missing teeth. rhematid arthritis - controlled - Chronic Pain History Chronic Pain: No (ra controlle) - Surgical History Prior Surgeries: 09/24/15 VENTRAL HERNIA REPAIR. mult hernia surg 01/23/15, with dr velarde. colectomy 6 y ago. lami/fusion 09/2009. dental implant ANE Review of Systems Review of Systems: - Exercise capacity METS (RN): 3 METS ANE Patient History - Allergies Allergies/Adverse Reactions: No Allergies [NKDA] Allergy (Verified 09/22/15 16:12) - Home Medications Home Medications: Leflunomide [Arava 20 mg (*)] 20 mg PO DAILY 06/27/14 [Last Taken 02/24/17] Lisinopril [Zestril 10 mg (*)] 10 mg PO DAILY 06/27/14 [Last Taken 02/24/17] Temazepam [Restoril 15 MG (*)] 15 mg PO HS 06/27/14 [Last Taken 02/23/17] Terazosin HCl [Hytrin 2 MG (*)] 6 mg PO HS 06/27/14 [Last Taken 02/23/17] Methotrexate Sodium/Pf [Methotrexate 25 mg/ml Vial] 0.8 ml IJ SA@0800 06/28/14 [ Last Taken 02/18/17] Albuterol [Proventil Inhaler HFA (*)] 1 - 2 puffs IH DAILY PRN 02/20/17 [Last Taken Unknown] C/E/Zn/Cu/OM3/DHA/EPA/LUT/ZEAX [Preservision Areds 2 Softgel] 1 each PO DAILY [Last Taken Unknown] Folic Acid [Folic Acid 1 MG (*)] 800 mcg PO DAILY 02/24/17 [Last Taken Unknown] Tiotropium Br/Olodaterol HCl [Stiolto Respimat Inhal Immaculata] 1 puffs IH BID 02/24 [Last Taken 02/24/17] predniSONE 5 mg PO DAILY 02/24/17 [Last Taken 02/24/17] - NPO status NPO Since - Liquids (Date): 03/14/17 NPO Since - Liquids (Time): 17:00 NPO Since - Solids (Date): 03/13/17 NPO Since - Solids (Time): 18:00 - Anes Hx Anes Hx: no prior problems - Smoking Hx Smoking Status: Former smoker - Alcohol Use Alcohol Use: None - Family Anes Hx Family Anes Hx: none Family Hx Anesthesia Complications: none ANE Labs/Vital Signs - Labs Result Diagrams: 03/14/17 12:30 03/14/17 12:30 - Vital Signs Blood Pressure: 149/75 Heart Rate: 76 Respiratory Rate: 20 O2 Sat (%): 91 Height: 180.34 cm Weight: 101.8 kg ANE Physical Exam - Airway Neck exam: decreased ROM Mallampati Score: Class 3 Mouth exam: normal dental/mouth exam - Pulmonary Pulmonary: expiratory wheeze - Cardiovascular Cardiovascular: regular rate and rhythym - ASA Status ASA Status: III ANE Anesthesia Plan Anesthesia Plan: general endotracheal anesthesia Lines/Monitors: arterial line
[2017-03-14] MEDS ORDERED: ALBUTEROL 3 ML DEYVIAL ONE (21:43)
[2017-03-14] MEDS ORDERED: ALBUTEROL 3 ML DEYVIAL IH ONE (21:43)
--- NOTE | 2017-03-14 21:52 | SOAPPROG ---
SOAP Progress Note Assessment/Plan: Assessment: STATUS POST VENTRAL HERNIA REPAIR/MINIMAL DRAINAGE/URINE OUTPUT OKAY/TOLERATING P.O./COMPLAINS OF PAIN AFEBRILE/VITAL SIGNS STABLE NEGATIVE BMS OR FLATUS/WOUND OKAY/ABDOMEN SOFT NONTENDER BUT SLIGHTLY DISTENDED Plan: CONTINUE PRESENT ORDERS 02/25/17 12:14 02/25/17 14:34 02/26/17 09:00 wound ok/ binder in place/ poor appetite/ +flatus and bm/ afebrile/ vs stable/ uo good/ home 1-2 days/ starting to mobilize 03/04/17 07:59 FEELING BETTER/ ABD SOFT/ WOUND OK/ UO OK/ EATING CAREFULLY/ WANTS TO GO HOME IN AM 03/04/17 08:32 sudden development of melena with hct 21/ abd soft, nontender/afebrile/ wound ok / minimal lionel drains small amount of possible free air on cxr plan check coags, gi consult 03/06/17 10:09 vs stable, uo good/ hct down to 22/ back to or today for washout and possible closure 03/08/17 20:10 PATIENT ALERT/VITAL SIGNS STABLE/URINE OUTPUT GOOD/WOUND VAC IN PLACE AND FUNCTIONING WELL/ABDOMEN SOFT WITH POSITIVE BOWEL SOUNDS/AFEBRILE PLAN FOR WOUND VAC CHANGE TODAY AND TISSUE GRANULATING WELL/PLAN TRANSFER TO [facility] IN CONTINUE WOUND VAC 03/10/17 09:33 feeling better/ wound ok/ afebrile/ eating ok/ vac change today/ home 2-3 days 03/11/17 12:35 FEELING BETTER/ WOUND INTACT IN OKAY/ AFEBRILE/HOPEFULLY REHAB NEXT WEEK 03/12/17 13:34 Seems to be doing well today/ however has developed AFib/abdomen soft nontender/wound VAC in place and working/active bowel sounds with active flatus and some BM Afebrile/WBC 11 K Questionable cause of his AFib 03/14/17 21:49 PATIENT WITH FEVER TONIGHT IN WHITE COUNT ELEVATED TO 14 K/CT SHOWS PELVIC ABSCESS/DISCUSSED WITH RADIOLOGY WHO FEELS THAT IT MAY BE MULTILOCULATED AND INCOMPLETELY DRAINED WITH PERCUTANEOUS INTERVENTION. RISKS AND OPTIONS FULLY DISCUSSED WITH PATIENT AND . PLAN IS TO PROCEED WITH LAPAROTOMY WITH WASHOUT DRAINAGE. THERE IS THE POSSIBILITY OF A NEED FOR COLOSTOMY IF HE HAS BREAKDOWN OF HIS PREVIOUS COLONIC PERFORATION OR OTHER REASON FOR ABSCESS FORMATION ABDOMEN IS SOFT SLIGHTLY PROTUBERANT WITH BOWEL SOUNDS AND HE HAS BEEN HAVING BOWEL MOVEMENTS AND FLATUS TODAY CHEST CLEAR/COR REGULAR RHYTHM WITH MILD TACHYCARDIA/HEENT IS NONICTERIC/VITAL SIGNS ARE STABLE EXCEPT FOR THE NEW TEMPERATURE RISE PLAN LAPAROTOMY Objective: Vital Signs Temp Pulse Resp BP Pulse Ox 37.3 C 76 20 149/75 H 91 L 03/14/17 21:33 03/14/17 21:44 03/14/17 21:44 03/14/17 21:44 03/14/17 21:44 Laboratory Results 03/14/17 12:30 03/14/17 12:30 03/13/17 03/14/17 03/15/17 05:59 05:59 05:59 Intake Total 456 930 237 Output Total 350 700 425 Balance 106 230 -188 PT 16.5 SEC (12.0-15.0) H 03/06/17 10:35 INR 1.31 (0.83-1.16) H 03/06/17 10:35 ICD10 Worksheet Patient Problems: Problems Problem Status Onset Diarrhea Acute Diarrhea with dehydration Acute Incarcerated ventral hernia Acute Pneumonia Acute
--- NOTE | 2017-03-14 23:33 | POSTOPPROG ---
Post Op Note Date of Operation: 03/14/17 Surgeon: Amos Butt Anesthesiologist: MORGAN Anesthesia: GET(General Endotracheal) Pre-op Diagnosis: PELVIC ABSCESS Post-op Diagnosis: SAME Indication: INFECTION FEVER PAIN Procedure: LAPAROTOMY DRAINAGE OF ABSCESS, REMOVAL OF MESH Findings: LARGE VOLUME OF CONTAMINATED FLUID ABOVE AND BELOW THE MESH/BOWEL VIABLE NO Inf/Abcess present in the surg proc area at time of surgery?: Yes Depth: Organ Space EBL: Minimal Complications: NONE Drains: Nephrostomy Specimen(s): CULTURE
[2017-03-14] MEDS ORDERED: ONDANSETRON 4 MG/2 ML VIAL IVP PRN ×2 (23:35→23:49)
[2017-03-14] MEDS ORDERED: fentaNYL 100 MCG/2 ML INJ IVP PRN (23:49)
[2017-03-14] MEDS ORDERED: NALOXONE HCL 0.4 MG/ML INJ IVP PRN (23:49)
[2017-03-14] MEDS ORDERED: ALBUTEROL 3 ML DEYVIAL IH PRN (23:49)
--- NOTE | 2017-03-14 23:55 | POSTANESTH ---
Post Anesthetic Evaluation Cardiovascular Status: Normal, Stable, Similar to Pre-Op Cond Respiratory Status: Similar to Pre-op Cond., Tx Decrease in SpO2 Level of Consciousness/Mental Status: Can Participate in Eval, Alert and Oriented Pain Control: Adequate, Prn Tx Ordered Nausea/Vomiting Control: Adequate, Prn Tx Ordered Complications Possibly Related to Anesthesia: None Noted Notes: Pt stabvle to ICU. Full report given to ICU nursing staff as well is in house hospitalist.
[2017-03-15] MEDS: TERAZOSIN HCL 2 MG CAP PO SCH ×3 (00:01→22:16)
[2017-03-15] MEDS: HYDROmorphONE/DILAUDID 1 MG/ML INJ IVP PRN (00:29)
[2017-03-15] MEDS ORDERED: ALBUMIN 5% 500 ML IV PRN (00:30)
[2017-03-15] MEDS: INSULIN REGULAR HUMAN 100 UNIT/ML UNIT SC SCH ×5 (00:39→22:00)
[2017-03-15] MEDS: HYDROmorphONE/DILAUDID 6 MG/30 ML PCA IV PRN (00:46)
--- NOTE | 2017-03-15 03:05 | GOP ---
[f rep st] OPERATIVE REPORT DATE OF OPERATION: 03/14/2017 SURGEON: Amos Butt MD ANESTHESIOLOGIST: Dr. Philip. PREOPERATIVE DIAGNOSIS: Pelvic abscess. POSTOPERATIVE DIAGNOSIS: Pelvic abscess. PROCEDURE PERFORMED: Laparotomy, drainage of pelvic abscess, lysis of adhesions, and peritoneal lava ge with ABThera placement. FINDINGS: The patient was found have a large volume of thin purulent fluid above and below the previ ous mesh in the anterior abdominal cavity and pelvis. Bowel was all viable and intact. The previous bowel suture line was intact with no evidence of any leakage from that, and most of the contaminatio n was limited to the pelvis. DESCRIPTION OF PROCEDURE: The patient was taken to the operating room where he received satisfactory general endotracheal anesthesia by Dr. Philip. Placed in supine position. Prepped and draped in the usual sterile fashion after removal of the wound VAC. Fascial sutures were incised, exposing a fair amount of liquid, contaminated fluid, which was anterior to the mesh. This was suctioned clear. A portion of the mesh was taken down and a large volume of purulent fluid was found underneath the mesh . The entire mesh was then freed up around its periphery and removed. The abdomen was then explored . Adhesions were taken down and the bowel was fully freed up and examined. The previous colonic per foration repair was intact and there was no evidence of leakage or contamination. The fluid itself d id not smell but was definitely contaminated. There was no actual succus or stool. The wound was co piously irrigated with 5 L of fluid in all quadrants. An ABThera was placed subfascially and covered with a wound VAC, which was connected to suction. He tolerated the procedure quite well. He was ta augustine to the recovery room in satisfactory condition. /[id number]/MODL
[2017-03-15] MEDS: PIPERACILLIN/TAZO 3.375 GM/DEX 50 ML IV SCH ×4 (03:18→22:01)
[2017-03-15 04:32] LABS: PLATELET COUNT 135 10^3/uL (150-400)
[2017-03-15 04:40] LABS: INR 1.34 (0.83-1.16); PROTIME(PATIENT) 16.8 SEC (12.0-15.0)
[2017-03-15] MEDS: D5W 1/2 NS W/ 20 KCl/L 1,000 ML IV SCH ×2 (07:45→17:28)
[2017-03-15] MEDS: Tiotropium Br/Olodaterol Hcl [Stiolto Respimat Inhal Spray] 4 GM IH SCH ×2 (09:25→21:22)
[2017-03-15] MEDS: FLUCONAZOLE/NaCl 100 ML IV SCH (09:40)
[2017-03-15] MEDS: predniSONE 5 MG TAB PO SCH (10:16)
[2017-03-15] MEDS: LEFLUNOMIDE 20 MG TAB PO SCH (10:16)
[2017-03-15] MEDS: buPROPion XL 150 MG TAB PO SCH (10:16)
[2017-03-15] MEDS: PANTOPRAZOLE SODIUM 40 MG TAB PO SCH ×3 (10:16→21:55)
--- NOTE | 2017-03-15 10:47 | PCMIDPN ---
Assessment/Plan: # Polymicrobial Peritonitis s/p 03/04 spontaneous sigmoid perf and repair. s/p 4 ventral hernia repair found have large intra-abdominal and pelvic abscess on CT scan yesterday and went to OR yesterday for washout and removal of biologic mesh. White count up today, not unexpectedly to 17 but patient reports feeling much improved. --continue current antibiotics --will monitor cultures and adjust antibiotics appropriately, GPC on peritoneal fluid, most likely enterococcus which zosyn would cover meds zosyn 3.375gm IV q6h, #14 fluconazole 200mg IV daily #12 micro 2: peritoneal swab: gram stain GPC Subjective: patient feels significantly better this AM Pain controlled with [employer] Objective: Vital Signs Temp Pulse Resp BP Pulse Ox 36.6 C 61 18 118/58 L 100 03/15/17 04:00 03/15/17 07:00 03/15/17 07:00 03/15/17 07:00 03/15/17 07:00 Microbiology 03/14/17 22:43 Gram Stain - Final Abdomen - Swab Laboratory Results 03/15/17 04:00 03/15/17 04:00 03/14/17 03/15/17 03/16/17 05:59 05:59 05:59 Intake Total 930 957 Output Total 700 1325 Balance 230 -368 - Physical Exam General Appearance: alert, no apparent distress EENT: other (good dentition MMM) Respiratory: No respiratory distress, No accessory muscle use, No crackles Cardiac/Chest: regular rate, rhythm Extremities: No pedal edema Abdomen: non-tender, soft, other (decreased bowel sound, wound vac in place ) Neuro/Psych: alert, normal mood/affect, oriented x 3 - Time Spent With Patient Time Spent with Patient: greater than 35 minutes (plan reviewed with patient and , care coordinated with surgical team) Time Spent with Patient: Greater than 35 minutes spent on this patients care, greater than 50% of time spent counseling, educating, and coordinating care regarding the above mentioned plan. ICD10 Worksheet Patient Problems: Problems Problem Status Onset Diarrhea Acute Diarrhea with dehydration Acute Incarcerated ventral hernia Acute Pneumonia Acute
[2017-03-15] MEDS: SENNOSIDES/DOCUSATE SODIUM TAB PO SCH ×3 (10:55→21:54)
[2017-03-15] MEDS: FOLIC ACID 1 MG TAB PO SCH (10:55)
--- NOTE | 2017-03-15 14:36 | HOSPPROG ---
Hospitalist Progress Note Assessment/Plan: # ventral hernia s/p repair 02/24 # sigmoid perforation s/p oversew repair 03/04 - cont zosyn/fluconazole, tentative stop date per ID # intra-abdominal abscess s/p washout and mesh removal 03/14 # a-fib with RVR in setting of physiologic stress - now in NSR - hold full dose AC - hold metop now that in NSR - cont tele - personally reviewed # GI bleed with melena - unclear source - resolved # esophagitis - cont protonix 40 po bid # ABLA - s/p 5U PRBC # hyperglycemia - A1c 6% - cont SSI insulin # acute on chronic (nocturnal O2) respiratory failure - resolved; off mechanical ventilation # GUSTAVO in setting of sigmoid perforation; resolved # COPD, possible exacerbation - resolved # ?pna - covered with zosyn # CAD - L base akinetic, elevated trop - no CP, needs ischemic eval at some point # chronic steroid use - on baseline prednisone 5mg # RA - leflunamide, steroids # depr - started on wellbutrin Subjective: feels better today; to OR last night for I&D of large intraabdominal abscess Objective: Vital Signs Temp Pulse Resp BP Pulse Ox 36.8 C 61 14 127/62 H 99 03/15/17 11:45 03/15/17 11:45 03/15/17 11:45 03/15/17 11:45 03/15/17 11:45 Microbiology 03/14/17 22:43 Gram Stain - Final Abdomen - Swab Laboratory Results 03/15/17 04:00 03/15/17 04:00 03/14/17 03/15/17 03/16/17 05:59 05:59 05:59 Intake Total 930 957 Output Total 700 1325 Balance 230 -368 PT 16.8 SEC (12.0-15.0) H 03/15/17 04:00 INR 1.34 (0.83-1.16) H 03/15/17 04:00 high risk - Physical Exam Constitutional: no apparent distress, appears nourished Ears, Nose, Mouth, Throat: other (NGT) Cardiovascular: No edema Respiratory: no respiratory distress Gastrointestinal: other (distended, TTP L sided; wound vac) Genitourinary: ramírez in urethra Skin: warm Musculoskeletal: full muscle strength Neurologic: AAOx3 Psychiatric: interacting appropriately ICD10 Worksheet Patient Problems: Problems Problem Status Onset Incarcerated ventral hernia Acute Pneumonia Acute Diarrhea with dehydration Acute Diarrhea Acute
--- NOTE | 2017-03-15 15:32 | SOAPPROG ---
SOAP Progress Note Assessment/Plan: Assessment/Plan: 76 Y M s/p recurrent ventral hernia repair, 02/24. peritonitis, s/p exlap with repair of sigmoid perforation and washout with abthera wound vac , 03/04. s/p washout, fascial closure with biologic mesh and wound vac, 03/06. s/p washout, removal of mesh, abthera vac placement, 03/14. Dr. Butt took patient to operating room last night after CT scan findings of fluid/abscess. Biologic mesh removed. Abthera wound vac replaced. Plan to return to OR tomorrow for vac change, likely another abthera. Continue NPO. Stopped lovenox--I suspect he will need more visits to OR over the next week. Ok to get OOB with assist with binder in place. D/w'ed nursing. Continue NGT and Velez. S: weak. pain controlled. O: alert, appropriate, nad ctab anteriorly rrr abd soft with vac, no BS's 03/15/17 15:33 Objective: Vital Signs Temp Pulse Resp BP Pulse Ox 36.7 C 61 14 126/61 H 100 03/15/17 14:00 03/15/17 14:00 03/15/17 14:00 03/15/17 14:00 03/15/17 14:00 Microbiology 03/14/17 22:43 Gram Stain - Final Abdomen - Swab Laboratory Results 03/15/17 04:00 03/15/17 04:00 03/14/17 03/15/17 03/16/17 05:59 05:59 05:59 Intake Total 930 957 Output Total 700 1325 Balance 230 -368 PT 16.8 SEC (12.0-15.0) H 03/15/17 04:00 INR 1.34 (0.83-1.16) H 03/15/17 04:00 ICD10 Worksheet Patient Problems: Problems Problem Status Onset Diarrhea Acute Diarrhea with dehydration Acute Incarcerated ventral hernia Acute Pneumonia Acute
[2017-03-15] MEDS: TEMAZEPAM 15 MG CAP PO SCH ×2 (21:54)
[2017-03-15] MEDS: MELATONIN 3 MG TAB PO SCH ×2 (21:55)
[2017-03-15] MEDS: INSULIN GLARGINE 100 UNITS/ML UNIT SC SCH (21:55)
--- NOTE | 2017-03-16 02:25 | GCON ---
[f rep st] CONSULTATION PULMONARY CRITICAL CARE CONSULTATION DATE OF CONSULTATION: 03/15/2017 REASON FOR CONSULTATION: Intensive care unit evaluation and medical management following repeat abdo johann surgery for peritonitis. HISTORY: The patient is a very pleasant 76-year-old, who was admitted 02/25 for a ventral hernia rep air. This was a complicated subsequently by a perforation of the sigmoid colon. On March 04. Thi s was associated with peritonitis and peritoneal contamination. He had bleeding and hypovolemic shoc k and acute respiratory failure associated with this. He required several days of mechanical ventila tion. He was taken back to the operating room yesterday for a pelvic abscess. This was drained and peritoneal lavage was performed. The previous mesh was taken down and the abdomen left open with a w ound VAC applied. Postoperatively, he was returned to the intensive care unit in stable condition. He is n.p.o. Further surgical procedures are being planned for wound VAC changes and abdominal re-ev aluations. He is being followed by Infectious Disease. He is on Zosyn and fluconazole. Currently, he has no specific complaints. Pain is being well managed. He denies significant shortness of breat h. PAST MEDICAL HISTORY: Remarkable for COPD secondary to previous tobacco abuse. He stopped smoking g reater than 10 years ago. There is a history of rheumatoid arthritis. He was on methotrexate and Ar nas prior to admission. There is a history of systemic hypertension. He is hypoxemic and was on oxy gen at night prior to coming in. SOCIAL HISTORY: The patient is . 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 He is no longer smoking. Significant alcohol is negative. FAMILY HISTORY: Noncontributory. REVIEW OF SYSTEMS: A 10-point review of systems is negative except as mentioned above. PHYSICAL EXAMINATION: GENERAL: Reveals a very pleasant gentleman who is lying comfortably in bed. VITAL SIGNS: Oxygen is in place at 6 L with saturations of 99% to 100%. He is afebrile. Blood pres sure is 126/63, heart rate 60 with sinus rhythm on the monitor. HEENT: Unremarkable for lymphadenop athy or thyromegaly. There is no jugular venous distention. CHEST: Clear anteriorly. Breath sound s are diminished at the bases. There are no wheezes, significant rales, or rhonchi. HEART: Regular in rate and rhythm to bradycardic. There is a soft systolic murmur, no gallop. ABDOMEN: Has a wou nd VAC in place postoperatively. There are no bowel sounds currently. A Velez catheter is in place since surgery yesterday. He has good urine output. EXTREMITIES: Unremarkable for significant edema . NEUROLOGIC: Examination is intact. LABORATORY: White blood cell count is 17,500, hematocrit 32, platelets 135,000. PT is 16, PTT 30. Sodium is 135, potassium 4.5, CO2 27, BUN 10, with a creatinine of 1.0. Glucoses are in the 180-240 range. Calcium is 7.7. Bilirubin and liver function tests are normal. Albumin is 2.1. ASSESSMENT: 1. Status post perforated bowel with abdominal sepsis: He went back to the operating room yesterday for re-exploration, and now has an open abdomen with a wound VAC in place. He is doing well. He is being covered with antibiotics and is being followed by Infectious Disease. 2. History of chronic obstructive pulmonary disease: This appears to be stable. Oxygen can be decr eased. There is no evidence of an exacerbation. Inhaled therapies appear to be appropriate. Second иван to surgical issues, the CT scan of the abdomen yesterday showed some small effusions and atelecta sis at the bases. There is no evidence of pneumonia. 3. History of rheumatoid arthritis, immunosuppression: He remains on Arava and low-dose prednisone. 4. Metabolic hyperglycemia: He is being covered with sliding scale insulin per protocols. 5. Gastrointestinal prophylaxis: Pantoprazole. 6. Deep venous thrombosis prophylaxis: Subcu enoxaparin is currently held for surgery. This possib ly could be restarted tomorrow. 7. Anemia, multifactorial: Hematocrit is stable at 32. PLAN AND RECOMMENDATIONS: The patient will be kept in the intensive care unit. Intravenous fluids w ill be continued. Antibiotics will be continued. Inhaled therapies and other medications will be ma intained as he is currently getting them. Appropriate pain control will be maintained. CBC and chem istries will be followed. Further plans and recommendations will be made based on his progress over the next 12-24 hours. /[id number]/MODL
[2017-03-16] MEDS: HYDROmorphONE/DILAUDID 1 MG/ML INJ IVP PRN ×4 (02:35→14:16)
[2017-03-16] MEDS: PIPERACILLIN/TAZO 3.375 GM/DEX 50 ML IV SCH ×4 (02:36→20:09)
[2017-03-16] MEDS: HYDROmorphONE/DILAUDID 2 MG TAB PO PRN (03:54)
[2017-03-16 04:32] LABS: PLATELET COUNT 127 10^3/uL (150-400)
[2017-03-16] MEDS ORDERED: BUPIVACAINE 0.5% 30 ML SDV ONE (07:22)
[2017-03-16] MEDS: INSULIN REGULAR HUMAN 100 UNIT/ML UNIT SC SCH ×4 (07:36→21:47)
[2017-03-16] MEDS: buPROPion XL 150 MG TAB PO SCH (08:19)
[2017-03-16] MEDS: LEFLUNOMIDE 20 MG TAB PO SCH (08:19)
[2017-03-16] MEDS: FOLIC ACID 1 MG TAB PO SCH (08:20)
[2017-03-16] MEDS: predniSONE 5 MG TAB PO SCH (08:20)
[2017-03-16] MEDS: PANTOPRAZOLE SODIUM 40 MG TAB PO SCH ×2 (08:20→21:49)
[2017-03-16] MEDS: SENNOSIDES/DOCUSATE SODIUM TAB PO SCH ×2 (08:20→21:49)
--- NOTE | 2017-03-16 08:51 | PDANEPAE ---
ANE History of Present Illness abdominal wound ANE Past Medical History - Cardiovascular History Hx Hypertension: Yes Hx Arrhythmias: Yes Hx Chest Pain: No Hx Coronary Artery / Peripheral Vascular Disease: No Hx CHF / Valvular Disease: No Hx Palpitations: No Cardiovascular History Comment: murmur. a-fib - Pulmonary History Hx COPD: Yes Hx Asthma/Reactive Airway Disease: No Hx Recent Upper Respiratory Infection: No Hx Oxygen in Use at Home: No Hx Sleep Apnea: Yes Sleep Apnea Screening Result - Last Documented: Positive Pulmonary History Comment: PE - Neurologic History Hx Cerebrovascular Accident: No Hx Seizures: No Hx Dementia: No - Endocrine History Hx Diabetes: No Hypothyroid: No Hyperthyroid: No Obesity: yes, mild - Renal History Hx Renal Disorders: Yes Renal History Comment: bph - Liver History Hx Hepatic Disorders: No - Neurological & Psychiatric Hx Hx Neurological and Psychiatric Disorders: No - Cancer History Hx Cancer: Yes Cancer History Comment: colon - Congenital Disorder History Hx Congenital Disorders: No - GI History GERD: no Hx Gastrointestinal Disorders: Yes Gastrointestinal History Comment: colon ca - Other Health History Other Health History: missing teeth. rhematid arthritis - controlled - Chronic Pain History Chronic Pain: No (ra controlle) - Surgical History Prior Surgeries: 09/24/15 VENTRAL HERNIA REPAIR. mult hernia surg 01/23/15, with dr velarde. colectomy 6 y ago. lami/fusion 09/2009. dental implant ANE Review of Systems Review of Systems: - Exercise capacity METS (RN): 3 METS ANE Patient History - Allergies Allergies/Adverse Reactions: No Allergies [NKDA] Allergy (Verified 09/22/15 16:12) - Home Medications Home Medications: Leflunomide [Arava 20 mg (*)] 20 mg PO DAILY 06/27/14 [Last Taken 02/24/17] Lisinopril [Zestril 10 mg (*)] 10 mg PO DAILY 06/27/14 [Last Taken 02/24/17] Temazepam [Restoril 15 MG (*)] 15 mg PO HS 06/27/14 [Last Taken 02/23/17] Terazosin HCl [Hytrin 2 MG (*)] 6 mg PO HS 06/27/14 [Last Taken 02/23/17] Methotrexate Sodium/Pf [Methotrexate 25 mg/ml Vial] 0.8 ml IJ SA@0800 05/23/15 [ Last Taken 02/18/17] Albuterol [Proventil Inhaler HFA (*)] 1 - 2 puffs IH DAILY PRN 02/20/17 [Last Taken Unknown] C/E/Zn/Cu/OM3/DHA/EPA/LUT/ZEAX [Preservision Areds 2 Softgel] 1 each PO DAILY [Last Taken Unknown] Folic Acid [Folic Acid 1 MG (*)] 800 mcg PO DAILY 02/24/17 [Last Taken Unknown] Tiotropium Br/Olodaterol HCl [Stiolto Respimat Inhal [place]] 1 puffs IH BID 02/24 [Last Taken 02/24/17] predniSONE 5 mg PO DAILY 02/24/17 [Last Taken 02/24/17] - NPO status NPO Since - Liquids (Date): 03/14/17 NPO Since - Liquids (Time): 17:00 NPO Since - Solids (Date): 03/13/17 NPO Since - Solids (Time): 18:00 - Anes Hx Anes Hx: no prior problems - Smoking Hx Smoking Status: Former smoker - Alcohol Use Alcohol Use: None - Family Anes Hx Family Anes Hx: neg - N/A Family Hx Anesthesia Complications: none ANE Labs/Vital Signs - Labs Result Diagrams: 03/16/17 04:05 03/16/17 04:05 - Vital Signs Blood Pressure: 139/60 Heart Rate: 79 Respiratory Rate: 20 O2 Sat (%): 97 Height: 180.34 cm Weight: 100.3 kg ANE Physical Exam - Airway Neck exam: FROM Mallampati Score: Class 2 Mouth exam: poor dentition - Pulmonary Pulmonary: no respiratory distress - Cardiovascular Cardiovascular: regular rate and rhythym, no murmur, rub, or gallop - ASA Status ASA Status: III ANE Anesthesia Plan Anesthesia Plan: general endotracheal anesthesia Total IV Anesthesia: No
[2017-03-16] MEDS ORDERED: MIDAZOLAM 2 MG/2 ML VIAL ONE (09:15)
--- NOTE | 2017-03-16 09:23 | SOAPPROG ---
JUAN PABLO Progress Note Assessment/Plan: Assessment: 76 Y M s/p recurrent ventral hernia repair, 02/24. peritonitis, s/p exlap with repair of sigmoid perforation and washout with abthera wound vac, 03/04. s/p washout, fascial closure with biologic mesh and wound vac, 03/06. s/p washout, removal of mesh, abthera vac placement, 03/14. S: Pt improved since yesterday. Hoping to get NG tube out soon. Pain controlled. O: Afebrile NAD No WOB. Abd: Abthera wound vac intact. No BS White count much improved since last abdominal washout. Ok to get out of bed as tolerated. Continue NG and ramírez at this time. Plan: Plan to go back to OR today to wash out abdomen and replace abthera wound vac. Will consider partial closure at time of surgery. Pt seen with Dr. Butt. 03/16/17 09:20 Objective: Vital Signs Temp Pulse Resp BP Pulse Ox 36.6 C 79 20 139/60 H 97 03/16/17 08:00 03/16/17 08:51 03/16/17 08:51 03/16/17 08:51 03/16/17 08:51 Microbiology 03/14/17 22:43 Gram Stain - Final Abdomen - Swab Laboratory Results 03/16/17 04:05 03/16/17 04:05 03/15/17 03/16/17 03/17/17 05:59 05:59 05:59 Intake Total 957 2918 Output Total 1325 2320 Balance -368 598 PT 16.8 SEC (12.0-15.0) H 03/15/17 04:00 INR 1.34 (0.83-1.16) H 03/15/17 04:00 ICD10 Worksheet Patient Problems: Problems Problem Status Onset Diarrhea Acute Diarrhea with dehydration Acute Incarcerated ventral hernia Acute Pneumonia Acute
[2017-03-16] MEDS ORDERED: fentaNYL 100 MCG/2 ML INJ ONE ×2 (09:25→10:58)
[2017-03-16] MEDS ORDERED: PROPOFOL 200 MG/20 ML VIAL ONE (09:25)
[2017-03-16] MEDS ORDERED: MIDAZOLAM 2 MG/2 ML VIAL IVP ONE (09:26)
[2017-03-16] MEDS ORDERED: ROCURONIUM 50 MG/5 ML VIAL ONE ×2 (09:28→10:22)
[2017-03-16] MEDS ORDERED: DEXAMETHASONE 4 MG/ML VIAL ONE (09:28)
[2017-03-16] MEDS: Tiotropium Br/Olodaterol Hcl [Stiolto Respimat Inhal Spray] 4 GM IH SCH ×2 (09:47→20:03)
[2017-03-16] MEDS ORDERED: KETAMINE 200 MG/20 ML VIAL ONE (10:09)
[2017-03-16] MEDS ORDERED: SUGAMMADEX SODIUM 200 MG/2 ML VIAL IVP ONE (10:51)
[2017-03-16] MEDS ORDERED: ONDANSETRON 4 MG/2 ML VIAL IVP PRN (11:11)
[2017-03-16] MEDS ORDERED: NALOXONE HCL 0.4 MG/ML INJ IVP PRN ×2 (11:11→14:34)
[2017-03-16] MEDS ORDERED: LR 500 ML IV PRN (11:11)
[2017-03-16] MEDS ORDERED: PROMETHAZINE HCL 25 MG/ML INJ IVP PRN (11:11)
[2017-03-16] MEDS ORDERED: HYDROmorphONE/DILAUDID 1 MG/ML INJ IVP PRN (11:11)
[2017-03-16] MEDS ORDERED: MEPERIDINE 25 MG/ML SYR IVP PRN (11:11)
--- NOTE | 2017-03-16 11:36 | POSTOPPROG ---
Post Op Note Date of Operation: 03/16/17 Surgeon: Amos Butt Laborer Cutting Tool: Perez Anesthesiologist: Zan Anesthesia: GET(General Endotracheal) Pre-op Diagnosis: Nonhealing abdominal wound, ventral hernia, colon perferation Post-op Diagnosis: same Indication: same Procedure: abdominal washout, colostomy creation, replacement abthera wound vac Findings: colon perferation with gross stool contamination Inf/Abcess present in the surg proc area at time of surgery?: Yes Depth: Organ Space EBL: 50-100 Drains: Wound Vac
[2017-03-16] MEDS: fentaNYL 100 MCG/2 ML INJ IVP PRN ×2 (12:02→12:10)
[2017-03-16] MEDS: FLUCONAZOLE/NaCl 100 ML IV SCH (12:24)
--- NOTE | 2017-03-16 12:26 | POSTANESTH ---
Post Anesthetic Evaluation Cardiovascular Status: Normal, Stable Respiratory Status: Normal, Stable Level of Consciousness/Mental Status: Can Participate in Eval Pain Control: Adequate, Prn Tx Ordered Nausea/Vomiting Control: Adequate, Prn Tx Ordered Complications Possibly Related to Anesthesia: None Noted
--- NOTE | 2017-03-16 13:35 | PCMIDPN ---
Assessment/Plan: Assessment: Peritonitis following a sigmoid perforation after ventral hernia repair. Status post drainage of large abscess. Enterococcus faecium growing in culture. Continues on both Zosyn and fluconazole. Plan: 1. Continue both Zosyn and fluconazole. 2. Follow laboratory values as well as clinical signs. 03/16/17 18:29 03/16/17 18:30 Subjective: Patient is resting in his hospital bed. He recently returned from operative washout. Complains of pain control issues. No fevers or chills. Objective: Zosyn # 15 Fluconazole # 13 Vital Signs Temp Pulse Resp BP Pulse Ox 37.1 C 76 12 141/66 H 96 03/16/17 12:22 03/16/17 12:22 03/16/17 11:57 03/16/17 12:22 03/16/17 12:22 Microbiology 03/14/17 22:43 Gram Stain - Final Abdomen - Swab Laboratory Results 03/16/17 04:05 03/16/17 04:05 03/15/17 03/16/17 03/17/17 05:59 05:59 05:59 Intake Total 957 2918 1200 Output Total 1325 2320 120 Balance -746 035 9532 - Physical Exam General Appearance: WD/WN, alert, no apparent distress, non-toxic Respiratory: lungs clear, normal breath sounds, No respiratory distress Cardiac/Chest: regular rate, rhythm, No tachycardia Abdomen: soft, other (Postop), No non-tender Skin: normal color, warm/dry, No rash ICD10 Worksheet Patient Problems: Problems Problem Status Onset Diarrhea Acute Diarrhea with dehydration Acute Incarcerated ventral hernia Acute Pneumonia Acute
[2017-03-16] MEDS ORDERED: HYDROmorphONE/DILAUDID 6 MG/30 ML PCA IV PRN (14:34)
--- NOTE | 2017-03-16 15:02 | HOSPPROG ---
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 # a-fib with RVR in setting of physiologic stress - now in NSR - hold full dose AC - hold metop now that in NSR - cont tele - personally reviewed # GI bleed with melena - unclear source - resolved # esophagitis - cont protonix 40 po bid # ABLA - s/p 5U PRBC # hyperglycemia - A1c 6% - cont SSI insulin # acute on chronic (nocturnal O2) respiratory failure - resolved; off mechanical ventilation # GUSTAVO in setting of sigmoid perforation; resolved # COPD, possible exacerbation - resolved # ?pna - covered with zosyn # CAD - L base akinetic, elevated trop - no CP, needs ischemic eval at some point # chronic steroid use - on baseline prednisone 5mg # RA - leflunamide, steroids # depr - started on wellbutrin Subjective: s/p surgery today; c/p pain Objective: Vital Signs Temp Pulse Resp BP Pulse Ox 37.1 C 76 12 141/66 H 96 03/16/17 12:22 03/16/17 12:22 03/16/17 11:57 03/16/17 12:22 03/16/17 12:22 Microbiology 03/14/17 22:43 Gram Stain - Final Abdomen - Swab Laboratory Results 03/16/17 04:05 03/16/17 04:05 03/15/17 03/16/17 03/17/17 05:59 05:59 05:59 Intake Total 957 2918 1200 Output Total 1325 2320 120 Balance -006 055 2095 PT 16.8 SEC (12.0-15.0) H 03/15/17 04:00 INR 1.34 (0.83-1.16) H 03/15/17 04:00 - Physical Exam Constitutional: uncomfortable Ears, Nose, Mouth, Throat: other (NGT) Cardiovascular: regular rate and rhythym, no murmur, rub, or gallop Respiratory: no respiratory distress, no rales or rhonchi Gastrointestinal: other (soft; TTP L sided; WV in place; ostomy) ICD10 Worksheet Patient Problems: Problems Problem Status Onset Incarcerated ventral hernia Acute Pneumonia Acute Diarrhea with dehydration Acute Diarrhea Acute
--- NOTE | 2017-03-16 15:36 | ASMTCMCOM ---
CM Note CM Note Notes: Patient returned to the operating room yesterday for re-exploration and now has an open abdomen with a wound vac in place. Yun from [facility] called for an update. Faxed her recent notes. Patient is needing bed rest currently. D/C date pushed back as further plans cannot be made until we monitor over the next 12-24 hours. D/C plan remains [facility] rehab when patient is medically stable. Yun will check back in with us on Monday. ZAMZAM will follow. Date Signed: 03/16/2017 03:35 PM Electronically Signed By:Nadia Hallman LCSW
[2017-03-16] MEDS: HYDROmorphONE/DILAUDID 6 MG/30 ML PCA IV PRN (15:49)
--- NOTE | 2017-03-16 16:07 | PDINTPN ---
Train Clerk Progress Note Assessment/Plan: Assessment: Status post abdominal perforation, peritonitis. To return to OR today for re- evaluation. Anemia: Hematocrit 30, stable. History of COPD: No evidence of exacerbation. Doing well. On albuterol, Stialto Rheumatoid arthritis/immunosuppression: On Arava and low-dose prednisone. Prophylaxis: On pantoprazole. Lovenox on hold. Has SCDs in place. Metabolic: Glucose is elevated, on sliding scale insulin. Plan: Back to OR today. Per surgery. Continue antibiotics. Continue supportive care, pain control as needed. Follow laboratory, hemoglobin and hematocrit. Continue inhaled medications, Arava and prednisone. Subjective: Doing okay this a.m.. Minimal abdominal discomfort. Back to OR... Objective: Vital Signs Temp Pulse Resp BP Pulse Ox 37.1 C 76 12 141/66 H 96 03/16/17 12:22 03/16/17 12:22 03/16/17 11:57 03/16/17 12:22 03/16/17 12:22 Microbiology 03/14/17 22:43 Gram Stain - Final Abdomen - Swab Laboratory Results 03/16/17 04:05 03/16/17 04:05 03/15/17 03/16/17 03/17/17 05:59 05:59 05:59 Intake Total 957 2918 1200 Output Total 1325 2320 120 Balance -480 500 5031 PT 16.8 SEC (12.0-15.0) H 03/15/17 04:00 INR 1.34 (0.83-1.16) H 03/15/17 04:00 Physical Exam - Physical Exam General Appearance: alert, no apparent distress EENT: other (Nasal cannula at 4 L) Neck: normal inspection Respiratory: lungs clear (Anteriorly), decreased breath sounds (At bases), rales (Few bibasilar rales) Cardiac/Chest: regular rate, rhythm Abdomen: other (Wound VAC in place, quiet) Male Genitalia: other (Catheter in place, adequate urine output) Skin: warm/dry, pallor Extremities: pedal edema Neuro/Psych: no motor/sensory deficits, No cognition abnormalities ICD10 Worksheet Patient Problems: Problems Problem Status Onset Incarcerated ventral hernia Acute Pneumonia Acute Diarrhea with dehydration Acute Diarrhea Acute
[2017-03-16] MEDS: D5W 1/2 NS W/ 20 KCl/L 1,000 ML IV SCH ×2 (16:31→19:02)
[2017-03-16] MEDS: ALTEPLASE 2 MG VIAL IVP PRN (18:30)
--- NOTE | 2017-03-16 18:37 | POSTOPPROG ---
Post Op Note Date of Operation: 03/16/17 Surgeon: Amos Butt Advertising Traffic Manager: JEAN-PIERRE Anesthesiologist: [place] Anesthesia: GET(General Endotracheal) Pre-op Diagnosis: OPEN ABDOMEN Post-op Diagnosis: SAME WITH SIGMOID COLON LEAK Indication: FECAL CONTAMINATION Procedure: LAPAROTOMY WITH PERITONEAL LAVAGE SIGMOID COLON RESECTION WITH END COLOSTOM Findings: RELATIVELY CLEAN ABDOMEN EXCEPT FOR LEAKAGE FROM THE SIGMOID COLON SITE Inf/Abcess present in the surg proc area at time of surgery?: Yes Depth: Organ Space EBL: Minimal Complications: NONE Drains: Wound Vac Specimen(s): SIGMOID COLON
[2017-03-16] MEDS: INSULIN GLARGINE 100 UNITS/ML UNIT SC SCH (21:47)
[2017-03-16] MEDS: MELATONIN 3 MG TAB PO SCH (21:49)
[2017-03-16] MEDS: TERAZOSIN HCL 2 MG CAP PO SCH (22:06)
[2017-03-16] MEDS: TEMAZEPAM 15 MG CAP PO SCH (22:06)
[2017-03-17] MEDS: PIPERACILLIN/TAZO 3.375 GM/DEX 50 ML IV SCH ×2 (01:50→09:13)
[2017-03-17] MEDS: D5W 1/2 NS W/ 20 KCl/L 1,000 ML IV SCH ×2 (01:50→13:13)
[2017-03-17 05:59] LABS: PLATELET COUNT 138 10^3/uL (150-400)
[2017-03-17] MEDS: ALBUTEROL IH PRN (08:53)
[2017-03-17] MEDS: MDI IH PRN (08:53)
[2017-03-17] MEDS: Tiotropium Br/Olodaterol Hcl [Stiolto Respimat Inhal Spray] 4 GM IH SCH ×2 (09:11→21:24)
[2017-03-17] MEDS: FOLIC ACID 1 MG TAB PO SCH (09:13)
[2017-03-17] MEDS: predniSONE 5 MG TAB PO SCH (09:13)
[2017-03-17] MEDS: SENNOSIDES/DOCUSATE SODIUM TAB PO SCH ×2 (09:13→20:48)
[2017-03-17] MEDS: PANTOPRAZOLE SODIUM 40 MG TAB PO SCH ×2 (09:13→20:47)
[2017-03-17] MEDS: LEFLUNOMIDE 20 MG TAB PO SCH (09:13)
--- NOTE | 2017-03-17 09:42 | HOSPPROG ---
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 # a-fib with RVR in setting of physiologic stress - now in NSR - hold full dose AC - hold metop now that in NSR # GI bleed with melena - unclear source - resolved # esophagitis - cont protonix 40 po bid # ABLA - s/p 5U PRBC # hyperglycemia - A1c 6% - cont SSI insulin ; also on low dose glargine # acute on chronic (nocturnal O2) respiratory failure - resolved; off mechanical ventilation # GUSTAVO in setting of sigmoid perforation; resolved # COPD, possible exacerbation - resolved # ?pna - well covered with zosyn # CAD - L base akinetic, elevated trop - no CP, needs ischemic eval at some point # chronic steroid use - on baseline prednisone 5mg # RA - leflunamide, steroids # depr - started on wellbutrin Subjective: frustrated with being in the hospital so long Objective: Vital Signs Temp Pulse Resp BP Pulse Ox 36.4 C 70 16 148/68 H 92 03/17/17 04:00 03/17/17 06:00 03/17/17 06:00 03/17/17 04:00 03/17/17 06:00 Microbiology 03/14/17 22:43 Gram Stain - Final Abdomen - Swab Laboratory Results 03/17/17 05:45 03/17/17 05:45 03/16/17 03/17/17 03/18/17 05:59 05:59 05:59 Intake Total 2918 4904 Output Total 2320 2295 Balance 598 2609 PT 16.8 SEC (12.0-15.0) H 03/15/17 04:00 INR 1.34 (0.83-1.16) H 03/15/17 04:00 high risk - iv narcotics and icu level care - Physical Exam Constitutional: uncomfortable Ears, Nose, Mouth, Throat: other (NGT) Gastrointestinal: other (soft, very TTP; ostomy; WV) Genitourinary: No ramírez in urethra Skin: warm Musculoskeletal: full muscle strength Neurologic: AAOx3 Psychiatric: interacting appropriately ICD10 Worksheet Patient Problems: Problems Problem Status Onset Incarcerated ventral hernia Acute Pneumonia Acute Diarrhea with dehydration Acute Diarrhea Acute
[2017-03-17] MEDS: INSULIN REGULAR HUMAN 100 UNIT/ML UNIT SC SCH ×4 (10:15→21:25)
[2017-03-17] MEDS: buPROPion XL 150 MG TAB PO SCH (10:49)
[2017-03-17] MEDS: FLUCONAZOLE/NaCl 100 ML IV SCH (10:49)
[2017-03-17] MEDS ORDERED: DAPTOmycin 800 MG in NS 100 ML IV SCH (11:30)
--- NOTE | 2017-03-17 11:59 | PCMIDPN ---
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 Will add daptomycin to which the isolates are susceptible. Continue Zosyn as likely has mixed intestinal gabriel and anaerobic gabriel contributing. Follow cultures and if no yeast isolated will plan to stop fluconazole. Contact precautions for VRE. 03/17/17 11:56 Subjective: Patient feels better today after adjustment of pain medications. Concerned about financial ramifications of hospitalization. Objective: Vital Signs Temp Pulse Resp BP Pulse Ox 36.4 C 68 18 152/69 H 94 03/17/17 04:00 03/17/17 10:00 03/17/17 10:00 03/17/17 10:00 03/17/17 10:00 Microbiology 03/14/17 22:43 Gram Stain - Final Abdomen - Swab Laboratory Results 03/17/17 05:45 03/17/17 05:45 03/16/17 03/17/17 03/18/17 05:59 05:59 05:59 Intake Total 2918 4904 150 Output Total 2320 2295 500 Balance 598 2609 -350 Zosyn # 16 fluconazole # 14 Operative cultures with growth of VRE and Enterococcus faecium which is ampicillin resistant - Physical Exam General Appearance: alert, no apparent distress EENT: No scleral icterus, No thrush Abdomen: non-tender, distended, other ( wound VAC in place without surrounding erythema) - Line/s RUE PICC Lines: No drainage, No erythema ICD10 Worksheet Patient Problems: Problems Problem Status Onset Diarrhea Acute Diarrhea with dehydration Acute Incarcerated ventral hernia Acute Pneumonia Acute
[2017-03-17] MEDS: DAPTOmycin 800 MG in NS 50 ML IV SCH (13:13)
[2017-03-17] MEDS: PIPERACILLIN/TAZO 4.5 GM/DEX 100 ML IV SCH ×2 (13:44→21:25)
[2017-03-17] MEDS: HYDROmorphONE/DILAUDID 6 MG/30 ML PCA IV PRN (13:44)
--- NOTE | 2017-03-17 13:51 | SOAPPROG ---
JUAN PABLO Progress Note Assessment/Plan: Assessment: 76 Y M s/p recurrent ventral hernia repair, 02/24. peritonitis, s/p exlap with repair of sigmoid perforation and washout with abthera wound vac, 03/04. s/p washout, fascial closure with biologic mesh and wound vac, 03/06. s/p washout, removal of mesh, abthera vac placement, 03/14 s/p washout, sigmoid colectomy, colostomy creation, replacement abthera wound vac S: Pt disappointed with colostomy placement. Worried about financial impact of extended hospital stay. NG tube is very bothersome. No nausea, RN clamped NG tube, will evaluate for possible d/c of tube. Velez d/c'ed this am. Urinating in urinal. O: Afebrile NAD No WOB. Abd: Abthera wound vac intact. Tender. No BS White count improved since yesterday. Colosomy: bright red, liquid brown stool in bag Ok to get out of bed as tolerated. Plan: Plan to go back to OR in the next few days to further close abdominal wound. Pt seen with Dr. Butt. 03/17/17 13:42 Objective: Vital Signs Temp Pulse Resp BP Pulse Ox 36.4 C 71 18 152/69 H 94 03/17/17 04:00 03/17/17 12:00 03/17/17 12:00 03/17/17 10:00 03/17/17 12:00 Microbiology 03/14/17 22:43 Gram Stain - Final Abdomen - Swab Laboratory Results 03/17/17 05:45 03/17/17 05:45 03/16/17 03/17/17 03/18/17 05:59 05:59 05:59 Intake Total 2918 4904 150 Output Total 2320 2295 500 Balance 598 2609 -350 PT 16.8 SEC (12.0-15.0) H 03/15/17 04:00 INR 1.34 (0.83-1.16) H 03/15/17 04:00 ICD10 Worksheet Patient Problems: Problems Problem Status Onset Diarrhea Acute Diarrhea with dehydration Acute Incarcerated ventral hernia Acute Pneumonia Acute
[2017-03-17] MEDS: INSULIN GLARGINE 100 UNITS/ML UNIT SC SCH (20:46)
[2017-03-17] MEDS: TERAZOSIN HCL 2 MG CAP PO SCH (20:47)
[2017-03-17] MEDS: MELATONIN 3 MG TAB PO SCH (20:48)
[2017-03-17] MEDS: TEMAZEPAM 15 MG CAP PO SCH (20:48)
[2017-03-18] MEDS: HYDROmorphONE/DILAUDID 6 MG/30 ML PCA IV PRN ×2 (00:42→12:13)
[2017-03-18 05:37] LABS: PLATELET COUNT 131 10^3/uL (150-400)
[2017-03-18] MEDS: PIPERACILLIN/TAZO 4.5 GM/DEX 100 ML IV SCH ×3 (05:50→22:30)
[2017-03-18] MEDS: Tiotropium Br/Olodaterol Hcl [Stiolto Respimat Inhal Spray] 4 GM IH SCH ×2 (09:10→20:09)
[2017-03-18] MEDS: MDI IH PRN (09:10)
[2017-03-18] MEDS: ALBUTEROL IH PRN (09:10)
[2017-03-18] MEDS: INSULIN REGULAR HUMAN 100 UNIT/ML UNIT SC SCH ×4 (09:27→21:33)
[2017-03-18] MEDS: FLUCONAZOLE/NaCl 100 ML IV SCH (09:33)
[2017-03-18] MEDS: PANTOPRAZOLE SODIUM 40 MG TAB PO SCH ×2 (09:36→20:04)
[2017-03-18] MEDS: LEFLUNOMIDE 20 MG TAB PO SCH (09:36)
[2017-03-18] MEDS: predniSONE 5 MG TAB PO SCH (09:36)
[2017-03-18] MEDS: SENNOSIDES/DOCUSATE SODIUM TAB PO SCH ×2 (09:36→20:03)
[2017-03-18] MEDS: buPROPion XL 150 MG TAB PO SCH (09:36)
[2017-03-18] MEDS: FOLIC ACID 1 MG TAB PO SCH (09:36)
--- NOTE | 2017-03-18 09:43 | SOAPPROG ---
JUAN PABLO Progress Note Assessment/Plan: Assessment/Plan: 76 Y M s/p recurrent ventral hernia repair, 02/24. peritonitis, s/p ex-lap with repair of sigmoid perforation and washout with abthera wound vac , 03/04. s/p washout, fascial closure with biologic mesh and wound vac, 03/06. s/ p washout, removal of mesh, abthera vac placement, 03/14. s/p washout, sigmoid colectomy, colostomy creation, replacement abthera wound vac Pain controlled Return of bowel function Labs stable Voiding spontaneously s/p ramírez removal Abthera - change in OR by Dr. Butt Monday or Monday Remain in ICU with Abthera in place Seen with Dr. Mckeon S: no complaints this morning. Pain controlled. O: Laying in bed, comfortable, NAD No increased WOB +BS. Abd soft, nondistended, nontender Colostomy with thin stool in bag Abthera in place inferior abdomen intact to suction Objective: Vital Signs Temp Pulse Resp BP Pulse Ox 37.3 C 68 20 148/61 H 97 03/18/17 04:00 03/18/17 06:00 03/18/17 06:00 03/18/17 06:00 03/18/17 06:00 Microbiology 03/12/17 14:05 Blood Culture - Final Blood 03/12/17 14:16 Blood Culture - Final Blood 03/14/17 22:43 Gram Stain - Final Abdomen - Swab Laboratory Results 03/18/17 05:25 03/18/17 05:25 03/17/17 03/18/17 03/19/17 05:59 05:59 05:59 Intake Total 4904 2515.9 Output Total 2295 2250 Balance 2609 265.9 PT 16.8 SEC (12.0-15.0) H 03/15/17 04:00 INR 1.34 (0.83-1.16) H 03/15/17 04:00 ICD10 Worksheet Patient Problems: Problems Problem Status Onset Diarrhea Acute Diarrhea with dehydration Acute Incarcerated ventral hernia Acute Pneumonia Acute
[2017-03-18] MEDS ORDERED: DAPTOmycin 800 MG in NS 50 ML IV SCH (10:00)
[2017-03-18] MEDS: DAPTOmycin 800 MG in NS 50 ML IV SCH (10:56)
[2017-03-18] MEDS: ENOXAPARIN 40 MG/0.4 ML SYR SC SCH (12:18)
--- NOTE | 2017-03-18 12:32 | PDINTPN ---
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 On antibiotics and antifungal as per Infectious Disease. Anemia: Hematocrit 25, drifting down. Follow. History of COPD: No evidence of exacerbation. Doing well. On albuterol, Stialto Rheumatoid arthritis/immunosuppression: On Arava and low-dose prednisone. Prophylaxis: On pantoprazole. Lovenox given intermittently between surgery. Has SCDs in place. Metabolic: Glucoses elevated, on sliding scale insulin. Plan: Back to OR possibly tomorrow or Monday. Per surgery. Continue antibiotics. Continue supportive care, pain control as needed, antidepressant. Follow laboratory, hemoglobin and hematocrit. Continue inhaled medications, continue Arava and prednisone. Subjective: Doing well, eating. Still with some abdominal discomfort as expected. In OK spirits Objective: Vital Signs Temp Pulse Resp BP Pulse Ox 36.8 C 74 16 140/70 H 95 03/18/17 12:00 03/18/17 12:00 03/18/17 12:00 03/18/17 12:00 03/18/17 12:00 Microbiology 03/12/17 14:05 Blood Culture - Final Blood 03/12/17 14:16 Blood Culture - Final Blood 03/14/17 22:43 Gram Stain - Final Abdomen - Swab Laboratory Results 03/18/17 05:25 03/18/17 05:25 03/17/17 03/18/17 03/19/17 05:59 05:59 05:59 Intake Total 4904 2515.9 Output Total 2295 2250 Balance 2609 265.9 PT 16.8 SEC (12.0-15.0) H 03/15/17 04:00 INR 1.34 (0.83-1.16) H 03/15/17 04:00 Laboratory Tests 03/16/17 03/18/17 04:05 05:25 Calcium 7.8 L 7.6 L Total Bilirubin 0.3 AST 20 ALT 35 Albumin 1.9 L Physical Exam - Physical Exam General Appearance: alert, no apparent distress EENT: PERRL/EOMI, other (Nasal cannula in place at 2 L) Neck: normal inspection (No JVD) Respiratory: lungs clear (Anteriorly), decreased breath sounds (At bases, few rales) Cardiac/Chest: regular rate, rhythm Abdomen: normal bowel sounds, non-tender (To light palpation), soft, other ( Wound VAC in place. Greenish stool in colostomy bag) Male Genitalia: other (Good urine output) Skin: warm/dry, pallor Extremities: No pedal edema Neuro/Psych: no motor/sensory deficits, No cognition abnormalities ICD10 Worksheet Patient Problems: Problems Problem Status Onset Incarcerated ventral hernia Acute Pneumonia Acute Diarrhea with dehydration Acute Diarrhea Acute
[2017-03-18] MEDS ORDERED: MICAFUNGIN NA 100 MG in NS 100 ML IV SCH (14:30)
[2017-03-18] MEDS: MICAFUNGIN NA 100 MG in NS 100 ML IV SCH (14:39)
--- NOTE | 2017-03-18 15:02 | PCMIDPN ---
Assessment/Plan: Assessment/Plan: * Peritonitis secondary to sigmoid perforation with subsequent abscess formation and repeat drainage: Clinically stable with plans for wound vac change in OR tomorrow. Cultures now with growth of yeast as well. Will fluconazole and begin micafungin given growth in the setting of ongoing fluconazole use. Continue Zosyn (coverage for gram-negative ramakrishna/anaerobes) and daptomycin targeting enterococcal species including VRE. 03/18/17 15:00 Subjective: Patient without significant abdominal pain. Plans for wound VAC change in or tomorrow. Objective: Vital Signs Temp Pulse Resp BP Pulse Ox 36.8 C 79 19 140/63 H 97 03/18/17 12:00 03/18/17 14:00 03/18/17 14:00 03/18/17 14:00 03/18/17 14:00 Microbiology 03/12/17 14:05 Blood Culture - Final Blood 03/12/17 14:16 Blood Culture - Final Blood 03/14/17 22:43 Gram Stain - Final Abdomen - Swab Laboratory Results 03/18/17 05:25 03/18/17 05:25 03/17/17 03/18/17 03/19/17 05:59 05:59 05:59 Intake Total 4904 2515.9 Output Total 2295 2250 Balance 2609 265.9 Zosyn # 17 Fluconazole # 15 Daptomycin # 2 Operative cultures now also with growth of yeast Laboratory Tests 03/17/17 11:42 Creatine Kinase < 20 - Physical Exam General Appearance: alert, no apparent distress EENT: No scleral icterus, No thrush Respiratory: lungs clear (Anterolateral), No respiratory distress Cardiac/Chest: regular rate, rhythm, systolic murmur (2/6 left upper sternal border) Abdomen: non-tender, distended, other (Wound VAC in place midline) ICD10 Worksheet Patient Problems: Problems Problem Status Onset Diarrhea Acute Diarrhea with dehydration Acute Incarcerated ventral hernia Acute Pneumonia Acute
--- NOTE | 2017-03-18 15:51 | CPEKG ---
Heart Rate: 71 RR Interval: 845 P-R Interval: 176 QRSD Interval: 124 QT Interval: 416 QTC Interval: 453 P [place]: 45 QRS [place]: 24 T Wave [place]: -16 EKG Severity - ABNORMAL ECG - EKG Impression: SINUS RHYTHM EKG Impression: RIGHT BUNDLE BRANCH BLOCK Electronically Signed By: Danyel Barrientos 19-Mar-2017 12:21:29
--- NOTE | 2017-03-18 15:52 | HOSPPROG ---
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 # a-fib with RVR in setting of physiologic stress - now in NSR - hold full dose AC - hold metop now that in NSR # GI bleed with melena - unclear source - resolved # esophagitis - cont protonix 40 po bid # ABLA - s/p 5U PRBC # hyperglycemia - A1c 6% - cont SSI insulin ; also on low dose glargine # acute on chronic (nocturnal O2) respiratory failure - resolved; off mechanical ventilation # GUSTAVO in setting of sigmoid perforation; resolved # COPD, possible exacerbation - resolved # ?pna - well covered with zosyn # CAD - L base akinetic, elevated trop - no CP, needs ischemic eval at some point # chronic steroid use - on baseline prednisone 5mg # RA - leflunamide, steroids # depr - started on wellbutrin Patient reviewed on multidisciplinary rounds with Dr. Warren and ICU team. PLANS: Continue current supportive treatments, antibiotics antifungal, steroid Continue follow sugars white blood cell count temperature vital signs closely Return to operating room with Dr. Butt tomorrow SUBJECTIVE: Disappointed that he will be going back to surgery tomorrow Abdominal pain well controlled with MANUFACTURING SR ENGINEER narcotic at this time No nausea or vomiting, is eating some solid food reasonably well OBJECTIVE Vitals reviewed: All stable without fever Switchgear Repairer, my review: Sinus Exam: alert oriented skin warm dry color ok resps not labored lungs clear BSs heart regular abd soft distended minimally tender, bowel sounds present, wound okay limbs warm, mild edema iv site ok Laboratory data: Hemoglobin a bit worse at 8 today White count is lower today notably Sodium slightly low, renal function good and sugars mostly in reasonable range but sometimes up in the low 200 range Objective: Vital Signs Temp Pulse Resp BP Pulse Ox 36.8 C 79 19 140/63 H 97 03/18/17 12:00 03/18/17 14:00 03/18/17 14:00 03/18/17 14:00 02/10/18 14:00 Microbiology 03/12/17 14:05 Blood Culture - Final Blood 03/12/17 14:16 Blood Culture - Final Blood 03/14/17 22:43 Gram Stain - Final Abdomen - Swab Laboratory Results 03/18/17 05:25 03/18/17 05:25 03/17/17 03/18/17 03/19/17 06:59 06:59 06:59 Intake Total 4904 2515.9 Output Total 2295 2250 Balance 2609 265.9 PT 16.8 SEC (12.0-15.0) H 03/15/17 04:00 INR 1.34 (0.83-1.16) H 03/15/17 04:00 - Time Spent With Patient Time Spent with Patient: greater than 35 minutes Time Spent with Patient: Greater than 35 minutes spent on this patients care, greater than 50% of time spent counseling, educating, and coordinating care regarding the above mentioned plan. ICD10 Worksheet Patient Problems: Problems Problem Status Onset Diarrhea Acute Diarrhea with dehydration Acute Incarcerated ventral hernia Acute Pneumonia Acute
[2017-03-18] MEDS: TERAZOSIN HCL 2 MG CAP PO SCH (20:03)
[2017-03-18] MEDS: ACETAMINOPHEN 325 MG TAB PO PRN (20:03)
[2017-03-18] MEDS: TEMAZEPAM 15 MG CAP PO SCH (20:03)
[2017-03-18] MEDS: MELATONIN 3 MG TAB PO SCH (20:03)
[2017-03-18] MEDS: INSULIN GLARGINE 100 UNITS/ML UNIT SC SCH (20:07)
[2017-03-19] MEDS: HYDROmorphONE/DILAUDID 6 MG/30 ML PCA IV PRN ×2 (00:22→14:56)
[2017-03-19] MEDS: PIPERACILLIN/TAZO 4.5 GM/DEX 100 ML IV SCH ×3 (05:04→22:00)
[2017-03-19 05:25] LABS: PLATELET COUNT 129 10^3/uL (150-400)
[2017-03-19] MEDS: ENOXAPARIN 40 MG/0.4 ML SYR SC SCH (07:19)
[2017-03-19] MEDS: INSULIN REGULAR HUMAN 100 UNIT/ML UNIT SC SCH ×4 (07:20→21:41)
[2017-03-19] MEDS ORDERED: ROCURONIUM 100 MG/10 ML VIAL ONE (07:36)
[2017-03-19] MEDS ORDERED: DEXAMETHASONE 4 MG/ML VIAL ONE (07:36)
[2017-03-19] MEDS ORDERED: LIDOCAINE 2% 5 ML SDV ONE (07:37)
[2017-03-19] MEDS ORDERED: fentaNYL 100 MCG/2 ML INJ ONE (07:40)
[2017-03-19] MEDS ORDERED: PROPOFOL 200 MG/20 ML VIAL ONE (07:40)
[2017-03-19] MEDS ORDERED: SUCCINYLCHOLINE CHLORIDE 200 MG/10 ML SYR IVP ONE (07:42)
--- NOTE | 2017-03-19 07:43 | PDANEPAE ---
ANE History of Present Illness wound washout ANE Past Medical History - Cardiovascular History Hx Hypertension: Yes Hx Arrhythmias: Yes Hx Chest Pain: No Hx Coronary Artery / Peripheral Vascular Disease: Yes Hx CHF / Valvular Disease: No Hx Palpitations: No Cardiovascular History Comment: murmur. a-fib - Pulmonary History Hx COPD: Yes Hx Asthma/Reactive Airway Disease: No Hx Recent Upper Respiratory Infection: No Hx Oxygen in Use at Home: No Hx Sleep Apnea: Yes Sleep Apnea Screening Result - Last Documented: Positive Pulmonary History Comment: PE - Neurologic History Hx Cerebrovascular Accident: No Hx Seizures: No Hx Dementia: No - Endocrine History Hx Diabetes: No Hypothyroid: No Hyperthyroid: No Obesity: yes, mild - Renal History Hx Renal Disorders: Yes Renal History Comment: bph - Liver History Hx Hepatic Disorders: No - Neurological & Psychiatric Hx Hx Neurological and Psychiatric Disorders: No - Cancer History Hx Cancer: Yes Cancer History Comment: colon - Congenital Disorder History Hx Congenital Disorders: No - GI History GERD: no Hx Gastrointestinal Disorders: Yes Gastrointestinal History Comment: colon ca - Other Health History Other Health History: missing teeth. rhematid arthritis - controlled - Chronic Pain History Chronic Pain: No (ra controlle) - Surgical History Prior Surgeries: 09/24/15 VENTRAL HERNIA REPAIR. mult hernia surg 01/23/15, with dr velarde. colectomy 6 y ago. lami/fusion 09/2009. dental implant ANE Review of Systems Review of Systems: - Exercise capacity METS (RN): 3 METS ANE Patient History - Allergies Allergies/Adverse Reactions: No Allergies [NKDA] Allergy (Verified 09/22/15 16:12) - Home Medications Home Medications: Leflunomide [Arava 20 mg (*)] 20 mg PO DAILY 06/27/14 [Last Taken 02/24/17] Lisinopril [Zestril 10 mg (*)] 10 mg PO DAILY 06/27/14 [Last Taken 02/24/17] Temazepam [Restoril 15 MG (*)] 15 mg PO HS 06/27/14 [Last Taken 02/23/17] Terazosin HCl [Hytrin 2 MG (*)] 6 mg PO HS 06/27/14 [Last Taken 02/23/17] Methotrexate Sodium/Pf [Methotrexate 25 mg/ml Vial] 0.8 ml IJ SA@0800 05/23/15 [ Last Taken 02/18/17] Albuterol [Proventil Inhaler HFA (*)] 1 - 2 puffs IH DAILY PRN 02/20/17 [Last Taken Unknown] C/E/Zn/Cu/OM3/DHA/EPA/LUT/ZEAX [Preservision Areds 2 Softgel] 1 each PO DAILY [Last Taken Unknown] Folic Acid [Folic Acid 1 MG (*)] 800 mcg PO DAILY 02/24/17 [Last Taken Unknown] Tiotropium Br/Olodaterol HCl [Stiolto Respimat Inhal [place]] 1 puffs IH BID 02/24 [Last Taken 02/24/17] predniSONE 5 mg PO DAILY 02/24/17 [Last Taken 02/24/17] - NPO status NPO Status: no food or drink >8 hours NPO Since - Liquids (Date): 03/18/17 NPO Since - Liquids (Time): 23:59 NPO Since - Solids (Date): 03/18/17 NPO Since - Solids (Time): 23:59 - Anes Hx Anes Hx: no prior problems - Smoking Hx Smoking Status: Former smoker - Alcohol Use Alcohol Use: None - Family Anes Hx Family Hx Anesthesia Complications: none ANE Labs/Vital Signs - Labs Result Diagrams: 03/19/17 05:05 03/19/17 05:05 - Vital Signs Blood Pressure: 148/70 Heart Rate: 72 Respiratory Rate: 16 O2 Sat (%): 94 Height: 180.34 cm Weight: 102.1 kg ANE Physical Exam - Airway Mallampati Score: Class 2 Mouth exam: normal dental/mouth exam, poor dentition - Pulmonary Pulmonary: no respiratory distress - Cardiovascular Cardiovascular: regular rate and rhythym - ASA Status ASA Status: III ANE Anesthesia Plan Anesthesia Plan: general endotracheal anesthesia
[2017-03-19] MEDS ORDERED: BUPIVACAINE 0.5% 30 ML SDV ONE (07:47)
[2017-03-19] MEDS: ALBUTEROL IH PRN (08:01)
[2017-03-19] MEDS: Tiotropium Br/Olodaterol Hcl [Stiolto Respimat Inhal Spray] 4 GM IH SCH ×2 (08:01→20:01)
[2017-03-19] MEDS: MDI IH PRN (08:01)
--- NOTE | 2017-03-19 08:47 | GOP ---
[f rep st] OPERATIVE REPORT DATE OF OPERATION: 03/16/2017 SURGEON: Amos Butt MD DIRECTOR AUTOMOTIVE: Gabbie Todd NP. ANESTHESIOLOGIST: Vinny Quinones DO. PREOPERATIVE DIAGNOSIS: Open abdominal wound. POSTOPERATIVE DIAGNOSIS: Sigmoid colon leak. PROCEDURE PERFORMED: laparotomy, colectomy with end colostomy and hartsman pouch, peritoneal lavage and wound vac placement FINDINGS: The patient was found to have localized leakage of stool in the left lower quadrant through a previous colonic perforation which had been repaired primarily. This appeared to be leaking at this point. There was minimal contamination of the rest of the abdomen. ESTIMATED BLOOD LOSS: Negligible. DESCRIPTION OF PROCEDURE: The patient taken to the operating room where he received satisfactory general endotracheal anesthesia by Dr. Quinones, placed in the supine position, prepped and draped in the usual sterile fashion. Wound VAC ABThera removed, exposing a fair amount of soft fecal material in the left lower quadrant. This was irrigated profusely and cleared. Adhesions were taken down. The sigmoid colon was mobilized by dividing the lateral peritoneal reflection. The distal sigmoid was divided with a ADAM stapler and the mesentery was divided with the Harmonic Scalpel, and a short section sigmoid was removed containing the perforated segment. The proximal colon was mobilized by further dividing the lateral wall attachments and the splenic flexure so that end colostomy could be performed. The wound was then copiously irrigated. Dissection in the left upper quadrant was used to bring out the colostomy through a circular skin incision. A 2 fingerbreadth incision was made in the fascia and the end of the proximal colon was brought out through this opening. It was secured to the peritoneum with 3-0 Vicryl sutures and secured to the fascia with 3-0 Vicryl sutures. The wound was then copiously irrigated. Hemostasis was assured. There were no other drainable pockets. The fascia was approximated wherever possible with interrupted 0 PDS sutures and #1 PDS sutures, leaving a much smaller fascial defect. An ABThera was then placed subfascially and covered with a wound VAC, and portions of the skin were closed in the upper part of the incision to allow better placement of a colostomy appliance. colostomy was opened and matured at the surface with 4-0 vicryl sutures He tolerated the procedure well, was taken to the recovery room in good condition. No complications. /[id number]/MODL MTDD
[2017-03-19] MEDS ORDERED: SUGAMMADEX SODIUM 200 MG/2 ML VIAL IVP ONE (09:10)
--- NOTE | 2017-03-19 09:23 | POSTOPPROG ---
Post Op Note Date of Operation: 03/19/17 Surgeon: Amos Butt Administrative Project Coordinator: sadi Anesthesiologist: jo Anesthesia: GET(General Endotracheal) Pre-op Diagnosis: ventral hernia colon perf, open abdomen Post-op Diagnosis: same Indication: 76yo M with complicated course including colon perf, requiring washout Procedure: ex lap with washout, closure of fascia, wound vac placement Findings: no purulence or stool. able to close fascia Inf/Abcess present in the surg proc area at time of surgery?: Yes Depth: Deep Incisional (Fascial) EBL: Minimal Drains: Wound Vac
[2017-03-19] MEDS ORDERED: NALOXONE HCL 0.4 MG/ML INJ IVP PRN (09:33)
[2017-03-19] MEDS: DAPTOmycin 800 MG in NS 50 ML IV SCH (10:00)
[2017-03-19] MEDS ORDERED: LIDOCAINE 2% JELLY 20 ML (UROJECT) ONE (10:13)
[2017-03-19] MEDS ORDERED: LIDOCAINE 2% JELLY 20 ML (UROJECT) UR ONE (10:30)
[2017-03-19] MEDS: LEFLUNOMIDE 20 MG TAB PO SCH (11:05)
[2017-03-19] MEDS: PANTOPRAZOLE SODIUM 40 MG TAB PO SCH ×2 (11:05→19:47)
[2017-03-19] MEDS: buPROPion XL 150 MG TAB PO SCH (11:06)
[2017-03-19] MEDS: FOLIC ACID 1 MG TAB PO SCH (11:06)
[2017-03-19] MEDS: predniSONE 5 MG TAB PO SCH (11:06)
[2017-03-19] MEDS: SENNOSIDES/DOCUSATE SODIUM TAB PO SCH ×2 (11:06→19:46)
--- NOTE | 2017-03-19 11:44 | ASMTCMCOM ---
CM Note CM Note Notes: Patient had another wash out of wound this AM. 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 Plan is for patient to go to [facility] when ready. Date Signed: 03/19/2017 11:43 AM Electronically Signed By:Brooklynn Zavala LCSW
--- NOTE | 2017-03-19 12:02 | HOSPPROG ---
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 # a-fib with RVR in setting of physiologic stress - now in NSR - hold full dose AC - hold metop now that in NSR # GI bleed with melena - unclear source - resolved # esophagitis - cont protonix 40 po bid # ABLA - s/p 5U PRBC # acute urine retention, new problem identified on March 19 -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 aggravated by recumbency, edema, narcotic and anesthesia meds, etc # hyperglycemia - A1c 6% - cont SSI insulin ; also on low dose glargine # acute on chronic (nocturnal O2) respiratory failure - resolved; off mechanical ventilation # GUSTAVO in setting of sigmoid perforation; resolved # COPD, possible exacerbation - resolved # ?pna - well covered with zosyn # CAD - L base akinetic, elevated trop - no CP, needs ischemic eval at some point # chronic steroid use - on baseline prednisone 5mg # RA - leflunamide, steroids # depr - started on wellbutrin Patient reviewed on multidisciplinary rounds with Dr. Warren and ICU team. I also reviewed the patient's condition and care today in detail with Dr. Butt Overall he is making slow but good progress. PLANS: Continue current supportive treatments, antibiotics antifungal, steroid Continue follow sugars white blood cell count temperature vital signs closely Intermittent straight caths as needed for discomfort at this time, and will add some Flomax, consider Velez catheter if necessary Physical occupational therapy, attempt to increase mobility as he is able DVT prophylaxis Follow sugars closely SUBJECTIVE: The patient is now back from his surgery today which included repair of a small colon leak which was at the site of previous leak and repair, with washout of a small amount of purulent material in that area though the rest of the intra- abdominal cavity appeared in good condition. He had partial closure of fascia and partial closure of skin incision. The patient's main complaint at the time of my visit this morning was inability to empty his bladder and a sense of uncomfortable fullness of the bladder. He had not passed any urine yet this morning. Otherwise he is not short of breath , has good control of abdominal discomfort, no fever symptoms and no other new symptoms OBJECTIVE Vitals reviewed: Mild systolic hypertension otherwise all stable without fever Fight Manager, my review: Sinus Exam: alert oriented skin warm dry color ok resps not labored lungs clear BSs heart regular abd soft distended minimally tender, bowel sounds present, wound okay; has wound VAC over the suprapubic area so unable to palpate his bladder, wound VAC looks good limbs warm, mild edema I did have the nurses perform a straight catheterization of his bladder and 700 cc of urine was removed with significant increase and comfort level for the patient iv site ok Laboratory data: Hemoglobin stable at 8 today White count is stable Some elevation in CO2 today but with a low anion gap, renal function stable Objective: Vital Signs Temp Pulse Resp BP Pulse Ox 36.4 C 64 13 159/75 H 95 03/19/17 10:00 03/19/17 10:00 03/19/17 10:00 03/19/17 10:00 03/19/17 10:00 Microbiology 03/12/17 14:05 Blood Culture - Final Blood 03/12/17 14:16 Blood Culture - Final Blood Laboratory Results 03/19/17 05:05 03/19/17 05:05 03/18/17 03/19/17 03/20/17 06:59 06:59 06:59 Intake Total 2515.9 3350.9 300 Output Total 2250 2625 151 Balance 265.9 725.9 149 PT 16.8 SEC (12.0-15.0) H 03/15/17 04:00 INR 1.34 (0.83-1.16) H 03/15/17 04:00 - Time Spent With Patient Time Spent with Patient: greater than 35 minutes Time Spent with Patient: Greater than 35 minutes spent on this patients care, greater than 50% of time spent counseling, educating, and coordinating care regarding the above mentioned plan. ICD10 Worksheet Patient Problems: Problems Problem Status Onset Diarrhea Acute Diarrhea with dehydration Acute Incarcerated ventral hernia Acute Pneumonia Acute
--- NOTE | 2017-03-19 13:02 | GOP ---
[f rep st] OPERATIVE REPORT DATE OF OPERATION: 03/19/2017 SURGEON: Amos Butt MD DIMENSIONAL INSPECTOR: YOGESH Johnson. ANESTHESIOLOGIST: Misbah Jay MD PREOPERATIVE DIAGNOSIS: Open abdomen with history of colonic perforation. POSTOPERATIVE DIAGNOSIS: Open abdomen with history of colonic perforation. PROCEDURE PERFORMED: Laparotomy, peritoneal lavage, abdominal fascial closure, and wound VAC placeme nt. FINDINGS: Patient was found to have no abscess pockets or significant contamination in the abdomen. His fascia, as noted before, was quite attenuated and poor quality but was able to be brought togeth er. DESCRIPTION OF PROCEDURE: Patient was taken to the operating room where he received satisfactory gen eral endotracheal anesthesia by Dr. Jay, placed in the supine position. Prepped and draped in the usual sterile fashion. Wound VAC had been removed. The ABThera subfascial protector was removed. The wound was copiously irrigated. No new problems were encountered and the bowel appeared to be via ble and intact. The fascia was then carefully approximated wherever possible with interrupted #1 PDS sutures until the entire abdomen was closed. Some necrotic tissue was debrided away. Hemostasis wa s carefully obtained. The wound was then dressed with a wound VAC until the neck of the sponge exten ding up underneath the proximal part of the incision. He tolerated the procedure well and was taken to the recovery room in good condition. There were no complications. Blood loss negligible. /[id number]/MODL
[2017-03-19] MEDS: MICAFUNGIN NA 100 MG in NS 100 ML IV SCH (14:58)
--- NOTE | 2017-03-19 16:53 | PCMIDPN ---
Assessment/Plan: Assessment/Plan: * Peritonitis secondary to sigmoid perforation with subsequent abscess formation and repeat drainage: Repeat operative exploration today without findings of persistent infection/abscess. Fascia able to be closed and wound VAC placed above fascia. Cultures from abscess showing growth of VRE as well as Shaina. Have asked lab to send out Shaina isolate for susceptibility. Continue daptomycin (targets VRE), Zosyn (gram-negative rods/anaerobes), and micafungin (Shaina). Will plan 2 weeks of therapy from today given no findings of infection operatively. Clinical findings and plan were discussed with patient and today. Time spent, 25 min, of which greater than half was spent in education/counseling /coordination of care related to peritonitis and plan of care. 03/19/17 16:50 Subjective: Patient with repeat exploration and OR today. No findings of residual peritonitis or abscess. Fascia was closed. Objective: Vital Signs Temp Pulse Resp BP Pulse Ox 36.8 C 74 18 156/72 H 97 03/19/17 14:00 03/19/17 14:00 03/19/17 14:00 03/19/17 14:00 03/19/17 14:00 Laboratory Results 03/19/17 05:05 03/19/17 05:05 03/18/17 03/19/17 03/20/17 05:59 05:59 05:59 Intake Total 2515.9 3350.9 1050 Output Total 2250 2625 1101 Balance 265.9 725.9 -51 Zosyn # 18 Micafungin # 2 Daptomycin # 3 Operative culture now with growth of Shaina albicans - Physical Exam General Appearance: alert, no apparent distress EENT: No scleral icterus, No thrush Respiratory: lungs clear Cardiac/Chest: regular rate, rhythm Abdomen: non-tender, other (Wound VAC in place without surrounding erythema), No distended ICD10 Worksheet Patient Problems: Problems Problem Status Onset Diarrhea Acute Diarrhea with dehydration Acute Incarcerated ventral hernia Acute Pneumonia Acute
--- NOTE | 2017-03-19 16:55 | PDINTPN ---
Roof Tile Layer Progress Note Assessment/Plan: Assessment: Status post abdominal perforation, peritonitis, open abdomen, wound VAC, colostomy. 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 Went back to the OR earlier today for really look and washout. Fascia closed by report. Wound VAC reapplied. On antibiotics and antifungal as per Infectious Disease. Anemia: Hematocrit 26, stable, without evidence of active bleeding. Follow. History of COPD: No evidence of exacerbation. Doing well. On albuterol, Stialto. Requests pulmonary follow-up as an outpatient. Rheumatoid arthritis/immunosuppression: On Arava and low-dose prednisone. Prophylaxis: On pantoprazole. Lovenox given intermittently between surgeries. Has SCDs in place. Metabolic: Glucoses elevated, on sliding scale insulin. Nutrition: Eating. Plan: Continue antibiotics. Continue supportive care, pain control as needed, antidepressant. Follow laboratory, hemoglobin and hematocrit. Increase mobilization as tolerated. Continue inhaled medications, continue Arava and prednisone. Subjective: Feels better after relook/washout this morning. Has been ambulatory in the room. Denies chest pain. Objective: Vital Signs Temp Pulse Resp BP Pulse Ox 36.8 C 74 18 156/72 H 97 03/19/17 14:00 03/19/17 14:00 03/19/17 14:00 03/19/17 14:00 03/19/17 14:00 Laboratory Results 03/19/17 05:05 03/19/17 05:05 03/18/17 03/19/17 03/20/17 05:59 05:59 05:59 Intake Total 2515.9 3350.9 1050 Output Total 2250 2625 1101 Balance 265.9 725.9 -51 PT 16.8 SEC (12.0-15.0) H 03/15/17 04:00 INR 1.34 (0.83-1.16) H 03/15/17 04:00 Physical Exam - Physical Exam General Appearance: alert, no apparent distress EENT: other (Nasal cannula at 2 L) Neck: normal inspection Respiratory: lungs clear, decreased breath sounds (At bases), prolonged expiration, No rales, No rhonchi, No wheezing Cardiac/Chest: regular rate, rhythm Abdomen: soft, other (Colostomy with stool comma wound VAC), No normal bowel sounds (Diminished bowel sounds postoperatively), No non-tender (Some tenderness around his wounds side.) Male Genitalia: other Skin: warm/dry, pallor Extremities: No pedal edema Neuro/Psych: no motor/sensory deficits, No cognition abnormalities ICD10 Worksheet Patient Problems: Problems Problem Status Onset Incarcerated ventral hernia Acute Pneumonia Acute Diarrhea with dehydration Acute Diarrhea Acute
[2017-03-19] MEDS: TERAZOSIN HCL 2 MG CAP PO SCH (19:46)
[2017-03-19] MEDS: MELATONIN 3 MG TAB PO SCH (19:46)
[2017-03-19] MEDS: TEMAZEPAM 15 MG CAP PO SCH (19:46)
[2017-03-19] MEDS: INSULIN GLARGINE 100 UNITS/ML UNIT SC SCH (22:00)
[2017-03-19] MEDS ORDERED: ENOXAPARIN 40 MG/0.4 ML SYR SC SCH (23:00)
[2017-03-20] MEDS: HYDROmorphONE/DILAUDID 6 MG/30 ML PCA IV PRN ×2 (02:08→18:30)
[2017-03-20 05:27] LABS: PLATELET COUNT 142 10^3/uL (150-400)
[2017-03-20] MEDS: PIPERACILLIN/TAZO 4.5 GM/DEX 100 ML IV SCH ×3 (05:39→21:59)
[2017-03-20] MEDS: buPROPion XL 150 MG TAB PO SCH (08:24)
[2017-03-20] MEDS: FOLIC ACID 1 MG TAB PO SCH (08:25)
[2017-03-20] MEDS: LEFLUNOMIDE 20 MG TAB PO SCH (08:25)
[2017-03-20] MEDS: SENNOSIDES/DOCUSATE SODIUM TAB PO SCH ×2 (08:25→20:59)
[2017-03-20] MEDS: PANTOPRAZOLE SODIUM 40 MG TAB PO SCH ×2 (08:25→20:59)
[2017-03-20] MEDS: predniSONE 5 MG TAB PO SCH (08:25)
[2017-03-20] MEDS: Tiotropium Br/Olodaterol Hcl [Stiolto Respimat Inhal Spray] 4 GM IH SCH ×2 (08:28→19:59)
[2017-03-20] MEDS: INSULIN REGULAR HUMAN 100 UNIT/ML UNIT SC SCH ×4 (08:42→22:17)
--- NOTE | 2017-03-20 09:38 | PDINTPN ---
Hospital Chaplain Progress Note Assessment/Plan: Assessment/Plan: * Status post abdominal perforation, peritonitis, open abdomen, wound VAC, colostomy. 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 Fascia closed by report. Wound VAC reapplied. On antibiotics and antifungal as per Infectious Disease. * Anemia: Hematocrit 26, stable, without evidence of active bleeding. Follow. * History of COPD: No evidence of exacerbation. Doing well. On albuterol, Stiolto. Requests pulmonary follow-up as an outpatient. * Rheumatoid arthritis/immunosuppression: On Arava and low-dose prednisone. * Prophylaxis: On pantoprazole. Lovenox given intermittently between surgeries. Has SCDs in place. * Metabolic: Glucoses elevated, on sliding scale insulin. * Nutrition: Eating. * PT/OT Subjective: Sitting up in bed. Comfortable. Pain is tolerable. Appetite is good. Objective: Vital Signs Temp Pulse Resp BP Pulse Ox 36.5 C 66 14 143/60 H 98 03/20/17 08:00 03/20/17 08:00 03/20/17 08:00 03/20/17 08:00 03/20/17 08:00 Laboratory Results 03/20/17 05:00 03/20/17 05:00 03/19/17 03/20/17 03/21/17 05:59 05:59 05:59 Intake Total 3350.9 3060.5 240 Output Total 2625 1901 500 Balance 725.9 1159.5 -260 PT 16.8 SEC (12.0-15.0) H 03/15/17 04:00 INR 1.34 (0.83-1.16) H 03/15/17 04:00 - Time Spent With Patient Time Spent With Patient: 25 min of time spent with patient, over 1/2 involved with coordination of care or counseling. Case discussed with Nursing and wound care. Physical Exam - Physical Exam General Appearance: alert, no apparent distress EENT: PERRL/EOMI, normal ENT inspection Neck: non-tender, full range of motion Respiratory: chest non-tender, lungs clear, prolonged expiration, No wheezing Cardiac/Chest: normal peripheral pulses, regular rate, rhythm Abdomen: normal bowel sounds, non-tender, soft Male Genitalia: deferred Rectal: deferred Skin: normal color, warm/dry Extremities: non-tender ICD10 Worksheet Patient Problems: Problems Problem Status Onset Diarrhea Acute Diarrhea with dehydration Acute Incarcerated ventral hernia Acute Pneumonia Acute
--- NOTE | 2017-03-20 10:14 | WOCRNPDOC ---
TONY Advanced Assessment Note - Colostomy Assessment, Advanced Left Lower Abdomen Colostomy Stoma Colostomy Appliance Intact: Yes Colostomy Appliance Currently in Use: Two Piece Flat, 2 3/4, Cut to Fit Stoma Color: Red Stoma Turgor: Moist Stoma Shape: Round Stoma Height: Protruding Slightly Colostomy Effluent: Fecal, Pasty Colostomy Details: End, Sarah's Pouch Colostomy Comment/Treatment Details: Patient was not aware that he would likely need to learn how to care for his ostomy before it was taken down. He thought the ostomy would only be there while he was in the hospital. I asked him to clarify with Dr. Butt, but did mention that often the temporary ostomies are present for at least 6-8 weeks. Patient education done about nomenclature, how to open and close lock and roll pouch. We did not go through an actual emptying demo as he seemed overwhelmed and tired and in pain. Patient unable to clip 2 piece pouch together so a one piece will be a better choice for him. Stoma is quite flat and very close to the midline incision. Due to his pain and fatigue that was all the teaching that was done today. Will follow up tomorrow for full pouch change for him to observe.
[2017-03-20] MEDS: DAPTOmycin 800 MG in NS 50 ML IV SCH (10:28)
--- NOTE | 2017-03-20 11:10 | PCMIDPN ---
Assessment/Plan: Assessment: Peritonitis following a sigmoid perforation after ventral hernia repair. Status post drainage of large abscess. Enterococcus faecium growing in culture. Isolates are both VSE and VRE. Continues on both Zosyn, micafungin and daptomycin. Yeast isolate is Shaina albicans. Can switch back to fluconazole. Plan: 1. Continue both Zosyn and daptomycin. 2. Switch micafungin back to fluconazole. 3. Continue to watch clinical course. Subjective: Patient is resting in his hospital bed. He is doing fairly well. He is quite fatigued from being in the hospital this long. He realizes that he is improving though. Struggling with the understanding that the colostomy will be in place for a few months. Objective: Daptomycin # 4 Zosyn # 19 Micafungin # 3 Vital Signs Temp Pulse Resp BP Pulse Ox 36.4 C 72 17 148/78 H 98 03/20/17 10:00 03/20/17 10:00 03/20/17 10:00 03/20/17 10:00 03/20/17 10:00 Microbiology 03/14/17 20:15 Blood Culture - Final Blood 03/14/17 20:00 Blood Culture - Final Blood Laboratory Results 03/20/17 05:00 03/20/17 05:00 03/19/17 03/20/17 03/21/17 05:59 05:59 05:59 Intake Total 3350.9 3060.5 240 Output Total 2625 1901 500 Balance 725.9 1159.5 -260 - Physical Exam General Appearance: WD/WN, alert, no apparent distress Respiratory: lungs clear, normal breath sounds, No respiratory distress Cardiac/Chest: regular rate, rhythm, No tachycardia Extremities: non-tender, normal inspection Abdomen: non-tender, soft, other (Ostomy healthy appearing.) Skin: normal color, warm/dry, No rash Neuro/Psych: alert, normal mood/affect, oriented x 3 ICD10 Worksheet Patient Problems: Problems Problem Status Onset Diarrhea Acute Diarrhea with dehydration Acute Incarcerated ventral hernia Acute Pneumonia Acute
--- NOTE | 2017-03-20 11:34 | HOSPPROG ---
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 # a-fib with RVR in setting of physiologic stress - now in NSR - hold full dose AC - hold metop now that in NSR # GI bleed with melena - unclear source - resolved # esophagitis - cont protonix 40 po bid # ABLA - s/p 5U PRBC # acute urine retention, new problem identified on March 19 -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 aggravated by recumbency, edema, narcotic and anesthesia meds, etc # hyperglycemia - A1c 6% - cont SSI insulin ; also on low dose glargine # acute on chronic (nocturnal O2) respiratory failure - resolved; off mechanical ventilation # GUSTAVO in setting of sigmoid perforation; resolved # COPD, possible exacerbation - resolved # ?pna - well covered with zosyn # CAD - L base akinetic, elevated trop - no CP, needs ischemic eval at some point # chronic steroid use - on baseline prednisone 5mg # RA - leflunamide, steroids # depr - started on wellbutrin Patient reviewed on multidisciplinary rounds with Dr. Waters and ICU team. I also reviewed the patient's condition and care today in detail with Dr. Butt Overall he is making slow but good progress. PLANS: Will add cold packs and Celebrex for his shoulder, and have physical therapy start to work with him here, will need outpatient physical therapy -consider steroid injection subacromial if he does not have good response here Continue current supportive treatments, antibiotics antifungal, steroid Continue follow sugars white blood cell count temperature vital signs closely Intermittent straight caths as needed for discomfort at this time, and will add some Flomax, consider Velez catheter if necessary Physical occupational therapy, attempt to increase mobility as he is able DVT prophylaxis Follow sugars closely SUBJECTIVE: Some incisional pain today otherwise terri feels good and is able to eat okay Does complain of some worsening of his chronic right shoulder pain after trying to pull himself up in bed this morning OBJECTIVE Vitals reviewed: Blood pressure is better today otherwise all stable without fever Aircraft Ordnance Technician, my review: Sinus Exam: alert oriented skin warm dry color ok resps not labored lungs clear BSs heart regular abd soft distended minimally tender, bowel sounds present, wound VAC in place; limbs warm, mild edema iv site ok Laboratory data: Hemoglobin stable at 8 today White blood cell count metabolic panel and sugars all reviewed in all stable and satisfactory range Objective: Vital Signs Temp Pulse Resp BP Pulse Ox 36.4 C 72 17 148/78 H 98 03/20/17 10:00 03/20/17 10:00 03/20/17 10:00 03/20/17 10:00 03/20/17 10:00 Microbiology 03/14/17 20:15 Blood Culture - Final Blood 03/14/17 20:00 Blood Culture - Final Blood Laboratory Results 03/20/17 05:00 03/20/17 05:00 03/19/17 03/20/17 03/21/17 06:59 06:59 06:59 Intake Total 3350.9 3060.5 440 Output Total 2625 1901 900 Balance 725.9 1159.5 -460 PT 16.8 SEC (12.0-15.0) H 03/15/17 04:00 INR 1.34 (0.83-1.16) H 03/15/17 04:00 - Time Spent With Patient Time Spent with Patient: greater than 35 minutes Time Spent with Patient: Greater than 35 minutes spent on this patients care, greater than 50% of time spent counseling, educating, and coordinating care regarding the above mentioned plan. ICD10 Worksheet Patient Problems: Problems Problem Status Onset Diarrhea Acute Diarrhea with dehydration Acute Incarcerated ventral hernia Acute Pneumonia Acute
--- NOTE | 2017-03-20 11:42 | SOAPPROG ---
JUAN PABLO Progress Note Assessment/Plan: Assessment: 76 Y M s/p recurrent ventral hernia repair, 02/24. peritonitis, s/p exlap with repair of sigmoid perforation and washout with abthera wound vac, 03/04. s/p washout, fascial closure with biologic mesh and wound vac, 03/06. s/p washout, removal of mesh, abthera vac placement, 03/14 s/p washout, sigmoid colectomy, colostomy creation, replacement abthera wound vac 03/16 s/p washout, fascial closure 03/19 S: Doing well today. Pain well controlled. Had to be straight catheterized yesterday after surgery, but voiding spontaneously today. Passing flatus and soft stool into colostomy bag. Getting OOB with PT. O: Afebrile NAD No WOB. Abd: Nontender. +BS. Wound vac intact. Colostomy: bright red, soft brown stool in bag Plan: Continue to monitor. Wound care to assess incision. Ostomy care for colostomy. Pt seen with Dr. Butt. 03/17/17 13:42 03/20/17 11:37 Objective: Vital Signs Temp Pulse Resp BP Pulse Ox 36.4 C 72 17 148/78 H 98 03/20/17 10:00 03/20/17 10:00 03/20/17 10:00 03/20/17 10:00 03/20/17 10:00 Microbiology 03/14/17 20:15 Blood Culture - Final Blood 03/14/17 20:00 Blood Culture - Final Blood Laboratory Results 03/20/17 05:00 03/20/17 05:00 03/19/17 03/20/17 03/21/17 05:59 05:59 05:59 Intake Total 3350.9 3060.5 440 Output Total 2625 1901 900 Balance 725.9 1159.5 -460 PT 16.8 SEC (12.0-15.0) H 03/15/17 04:00 INR 1.34 (0.83-1.16) H 03/15/17 04:00 ICD10 Worksheet Patient Problems: Problems Problem Status Onset Diarrhea Acute Diarrhea with dehydration Acute Incarcerated ventral hernia Acute Pneumonia Acute
--- NOTE | 2017-03-20 12:12 | SOAPPROG ---
SOAP Progress Note Assessment/Plan: Assessment: STATUS POST VENTRAL HERNIA REPAIR/MINIMAL DRAINAGE/URINE OUTPUT OKAY/TOLERATING P.O./COMPLAINS OF PAIN AFEBRILE/VITAL SIGNS STABLE NEGATIVE BMS OR FLATUS/WOUND OKAY/ABDOMEN SOFT NONTENDER BUT SLIGHTLY DISTENDED Plan: CONTINUE PRESENT ORDERS 02/25/17 12:14 02/25/17 14:34 02/26/17 09:00 wound ok/ binder in place/ poor appetite/ +flatus and bm/ afebrile/ vs stable/ uo good/ home 1-2 days/ starting to mobilize 03/04/17 07:59 FEELING BETTER/ ABD SOFT/ WOUND OK/ UO OK/ EATING CAREFULLY/ WANTS TO GO HOME IN AM 03/04/17 08:32 sudden development of melena with hct 21/ abd soft, nontender/afebrile/ wound ok / minimal lionel drains small amount of possible free air on cxr plan check coags, gi consult 03/06/17 10:09 vs stable, uo good/ hct down to 22/ back to or today for washout and possible closure 03/08/17 20:10 PATIENT ALERT/VITAL SIGNS STABLE/URINE OUTPUT GOOD/WOUND VAC IN PLACE AND FUNCTIONING WELL/ABDOMEN SOFT WITH POSITIVE BOWEL SOUNDS/AFEBRILE PLAN FOR WOUND VAC CHANGE TODAY AND TISSUE GRANULATING WELL/PLAN TRANSFER TO [facility] IN CONTINUE WOUND VAC 03/10/17 09:33 feeling better/ wound ok/ afebrile/ eating ok/ vac change today/ home 2-3 days 03/11/17 12:35 FEELING BETTER/ WOUND INTACT IN OKAY/ AFEBRILE/HOPEFULLY REHAB NEXT WEEK 03/12/17 13:34 Seems to be doing well today/ however has developed AFib/abdomen soft nontender/wound VAC in place and working/active bowel sounds with active flatus and some BM Afebrile/WBC 11 K Questionable cause of his AFib 03/14/17 21:49 PATIENT WITH FEVER TONIGHT IN WHITE COUNT ELEVATED TO 14 K/CT SHOWS PELVIC ABSCESS/DISCUSSED WITH RADIOLOGY WHO FEELS THAT IT MAY BE MULTILOCULATED AND INCOMPLETELY DRAINED WITH PERCUTANEOUS INTERVENTION. RISKS AND OPTIONS FULLY DISCUSSED WITH PATIENT AND . PLAN IS TO PROCEED WITH LAPAROTOMY WITH WASHOUT DRAINAGE. THERE IS THE POSSIBILITY OF A NEED FOR COLOSTOMY IF HE HAS BREAKDOWN OF HIS PREVIOUS COLONIC PERFORATION OR OTHER REASON FOR ABSCESS FORMATION ABDOMEN IS SOFT SLIGHTLY PROTUBERANT WITH BOWEL SOUNDS AND HE HAS BEEN HAVING BOWEL MOVEMENTS AND FLATUS TODAY CHEST CLEAR/COR REGULAR RHYTHM WITH MILD TACHYCARDIA/HEENT IS NONICTERIC/VITAL SIGNS ARE STABLE EXCEPT FOR THE NEW TEMPERATURE RISE PLAN LAPAROTOMY 03/20/17 12:11 Afebrile/vital signs great/wound VAC in place and decrease drainage/afebrile/ overall improving/wound VAC change on Monday Objective: Vital Signs Temp Pulse Resp BP Pulse Ox 36.8 C 69 20 133/112 H 98 03/20/17 12:05 03/20/17 12:05 03/20/17 12:05 03/20/17 12:05 03/20/17 12:05 Microbiology 03/14/17 20:15 Blood Culture - Final Blood 03/14/17 20:00 Blood Culture - Final Blood Laboratory Results 03/20/17 05:00 03/20/17 05:00 03/19/17 03/20/17 03/21/17 05:59 05:59 05:59 Intake Total 3350.9 3060.5 440 Output Total 2625 1901 900 Balance 725.9 1159.5 -460 PT 16.8 SEC (12.0-15.0) H 03/15/17 04:00 INR 1.34 (0.83-1.16) H 03/15/17 04:00 ICD10 Worksheet Patient Problems: Problems Problem Status Onset Diarrhea Acute Diarrhea with dehydration Acute Incarcerated ventral hernia Acute Pneumonia Acute
[2017-03-20] MEDS: MICAFUNGIN NA 100 MG in NS 100 ML IV SCH (14:48)
[2017-03-20] MEDS: TEMAZEPAM 15 MG CAP PO SCH (20:58)
[2017-03-20] MEDS: TERAZOSIN HCL 2 MG CAP PO SCH (20:58)
[2017-03-20] MEDS: diphenhydrAMINE 25 MG CAP PO PRN (20:59)
[2017-03-20] MEDS: MELATONIN 3 MG TAB PO SCH (20:59)
[2017-03-20] MEDS: INSULIN GLARGINE 100 UNITS/ML UNIT SC SCH (21:03)
[2017-03-21] MEDS: HYDROmorphONE/DILAUDID 6 MG/30 ML PCA IV PRN (05:04)
[2017-03-21] MEDS: PIPERACILLIN/TAZO 4.5 GM/DEX 100 ML IV SCH ×3 (05:04→21:18)
[2017-03-21] MEDS: INSULIN REGULAR HUMAN 100 UNIT/ML UNIT SC SCH ×4 (08:37→21:18)
[2017-03-21] MEDS: Tiotropium Br/Olodaterol Hcl [Stiolto Respimat Inhal Spray] 4 GM IH SCH ×2 (08:38→20:23)
--- NOTE | 2017-03-21 08:47 | PCMIDPN ---
Assessment/Plan: Assessment/Plan: 1. Peritonitis secondary to perforated sigmoid, complicated by abscesses- s/p wash out: - 02/24/17: s/p open Ventral hernia repair with mesh - 03/04/17: s/p sigmoid repair, - 03/14/17: s/p I & D of abscess, removal of mesh -03/19/17: s/p wash out. - Cultures from 03/14/17 with Enterococcus fecium, two strains (Dapto YO= 4, YO = <1 respectively), C. albicans (sensi pending). - had been on fluconazole fom 03/04- 03/18/17 - currently on empiric zosyn, dapto, and micafungin - wbc improved, creatinine stable. CPK/LFT checked on 03/17 and 03/18 respectively are stable. Continue to monitor periodically while on dapto. -blood cx ngtd form 03/01/17 - care coordinated with icu team - Meds zosyn 4.5gm q8- 03/17/17 (previously on 3.3.75gm q6 from 03/01/17- 03/17/17) dapto 800mg daily - 03/17/17 micafungin 100mg daily- 03/18/17 s/p fluconazole Subjective: afebrile. remains in icu. awake. states less abdominal discomfort overall. colostomy. wound vac noted. denies sob. Objective: Vital Signs Temp Pulse Resp BP Pulse Ox 36.3 C 63 17 148/64 H 95 03/20/17 20:00 03/21/17 06:00 03/21/17 06:00 03/21/17 04:00 03/21/17 06:00 Microbiology 03/14/17 22:43 Gram Stain - Final Abdomen - Swab 03/14/17 20:15 Blood Culture - Final Blood 03/14/17 20:00 Blood Culture - Final Blood Laboratory Results 03/20/17 05:00 03/20/17 05:00 03/20/17 03/21/17 03/22/17 05:59 05:59 05:59 Intake Total 3060.5 2791.0 Output Total 1901 2650 Balance 1159.5 141.0 - Physical Exam General Appearance: alert, no apparent distress EENT: other (nc) Respiratory: lungs clear (anteriorly) Cardiac/Chest: regular rate, rhythm Extremities: other (RUE picc line noted, no swellng), No swelling Abdomen: other (bs quiet, wound vac noted. colostomy. mild tenderness to palpation) Male Genitalia: ramírez Skin: No rash ICD10 Worksheet Patient Problems: Problems Problem Status Onset Diarrhea Acute Diarrhea with dehydration Acute Incarcerated ventral hernia Acute Pneumonia Acute
--- NOTE | 2017-03-21 09:19 | SOAPPROG ---
SOAP Progress Note Assessment/Plan: Assessment: STATUS POST VENTRAL HERNIA REPAIR/MINIMAL DRAINAGE/URINE OUTPUT OKAY/TOLERATING P.O./COMPLAINS OF PAIN AFEBRILE/VITAL SIGNS STABLE NEGATIVE BMS OR FLATUS/WOUND OKAY/ABDOMEN SOFT NONTENDER BUT SLIGHTLY DISTENDED Plan: CONTINUE PRESENT ORDERS 02/25/17 12:14 02/25/17 14:34 02/26/17 09:00 wound ok/ binder in place/ poor appetite/ +flatus and bm/ afebrile/ vs stable/ uo good/ home 1-2 days/ starting to mobilize 03/04/17 07:59 FEELING BETTER/ ABD SOFT/ WOUND OK/ UO OK/ EATING CAREFULLY/ WANTS TO GO HOME IN AM 03/04/17 08:32 sudden development of melena with hct 21/ abd soft, nontender/afebrile/ wound ok / minimal lionel drains small amount of possible free air on cxr plan check coags, gi consult 03/06/17 10:09 vs stable, uo good/ hct down to 22/ back to or today for washout and possible closure 03/08/17 20:10 PATIENT ALERT/VITAL SIGNS STABLE/URINE OUTPUT GOOD/WOUND VAC IN PLACE AND FUNCTIONING WELL/ABDOMEN SOFT WITH POSITIVE BOWEL SOUNDS/AFEBRILE PLAN FOR WOUND VAC CHANGE TODAY AND TISSUE GRANULATING WELL/PLAN TRANSFER TO [facility] IN CONTINUE WOUND VAC 03/10/17 09:33 feeling better/ wound ok/ afebrile/ eating ok/ vac change today/ home 2-3 days 03/11/17 12:35 FEELING BETTER/ WOUND INTACT IN [place]/ AFEBRILE/HOPEFULLY REHAB NEXT WEEK 03/12/17 13:34 Seems to be doing well today/ however has developed AFib/abdomen soft nontender/wound VAC in place and working/active bowel sounds with active flatus and some BM Afebrile/WBC 11 K Questionable cause of his AFib 03/14/17 21:49 PATIENT WITH FEVER TONIGHT IN WHITE COUNT ELEVATED TO 14 K/CT SHOWS PELVIC ABSCESS/DISCUSSED WITH RADIOLOGY WHO FEELS THAT IT MAY BE MULTILOCULATED AND INCOMPLETELY DRAINED WITH PERCUTANEOUS INTERVENTION. RISKS AND OPTIONS FULLY DISCUSSED WITH PATIENT AND . PLAN IS TO PROCEED WITH LAPAROTOMY WITH WASHOUT DRAINAGE. THERE IS THE POSSIBILITY OF A NEED FOR COLOSTOMY IF HE HAS BREAKDOWN OF HIS PREVIOUS COLONIC PERFORATION OR OTHER REASON FOR ABSCESS FORMATION ABDOMEN IS SOFT SLIGHTLY PROTUBERANT WITH BOWEL SOUNDS AND HE HAS BEEN HAVING BOWEL MOVEMENTS AND FLATUS TODAY CHEST CLEAR/COR REGULAR RHYTHM WITH MILD TACHYCARDIA/HEENT IS NONICTERIC/VITAL SIGNS ARE STABLE EXCEPT FOR THE NEW TEMPERATURE RISE PLAN LAPAROTOMY 03/20/17 12:11 Afebrile/vital signs great/wound VAC in place and decrease drainage/afebrile/ overall improving/wound VAC change on Monday03/21/17 09:18 COMFORTABLE, VAC IN PLACE/ EATING/ AFEBRILE/ SOME DYSURIA/ VAC CHANGE IN AM Objective: Vital Signs Temp Pulse Resp BP Pulse Ox 36.6 C 65 17 129/50 H 94 03/21/17 08:00 03/21/17 08:00 03/21/17 08:00 03/21/17 08:00 03/21/17 08:00 Microbiology 03/14/17 22:43 Gram Stain - Final Abdomen - Swab 03/14/17 20:15 Blood Culture - Final Blood 03/14/17 20:00 Blood Culture - Final Blood Laboratory Results 03/20/17 05:00 03/20/17 05:00 03/20/17 03/21/17 03/22/17 05:59 05:59 05:59 Intake Total 3060.5 2791.0 Output Total 1901 2650 Balance 1159.5 141.0 PT 16.8 SEC (12.0-15.0) H 03/15/17 04:00 INR 1.34 (0.83-1.16) H 03/15/17 04:00 ICD10 Worksheet Patient Problems: Problems Problem Status Onset Diarrhea Acute Diarrhea with dehydration Acute Incarcerated ventral hernia Acute Pneumonia Acute
--- NOTE | 2017-03-21 09:27 | SOAPPROG ---
SOAP Progress Note Assessment/Plan: Assessment/Plan: * Status post abdominal perforation, peritonitis, open abdomen, wound VAC, colostomy. 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 Fascia closed by report. Wound VAC reapplied. On antibiotics and antifungal as per Infectious Disease. * Anemia: Stable * History of COPD: No evidence of exacerbation. Doing well. On albuterol, Stiolto. -to follow up in our office as an outpatient * Rheumatoid arthritis/immunosuppression: On Arava and low-dose prednisone. * Prophylaxis: On pantoprazole. Lovenox given intermittently between surgeries. Has SCDs in place. * Metabolic: Glucoses elevated, on sliding scale insulin. * Nutrition: Eating. * PT/OT Subjective: Resting comfortably. Pain well tolerated. Breathing easily. Objective: Vital Signs Temp Pulse Resp BP Pulse Ox 36.6 C 65 17 129/50 H 94 03/21/17 08:00 03/21/17 08:00 03/21/17 08:00 03/21/17 08:00 03/21/17 08:00 Microbiology 03/14/17 22:43 Gram Stain - Final Abdomen - Swab 03/14/17 20:15 Blood Culture - Final Blood 03/14/17 20:00 Blood Culture - Final Blood Laboratory Results 03/20/17 05:00 03/20/17 05:00 03/20/17 03/21/17 03/22/17 05:59 05:59 05:59 Intake Total 3060.5 2791.0 Output Total 1901 2650 Balance 1159.5 141.0 PT 16.8 SEC (12.0-15.0) H 03/15/17 04:00 INR 1.34 (0.83-1.16) H 03/15/17 04:00 - Time Spent With Patient Time Spent With Patient: 25 min of time spent with patient, over 1/2 involved with coordination of care or counseling Physical Exam - Physical Exam General Appearance: alert, no apparent distress EENT: PERRL/EOMI, normal ENT inspection Neck: non-tender, full range of motion Respiratory: decreased breath sounds, prolonged expiration, No stridor, No wheezing Cardiac/Chest: normal peripheral pulses, regular rate, rhythm, systolic murmur Abdomen: normal bowel sounds, non-tender, soft Male Genitalia: deferred Rectal: deferred Skin: normal color, warm/dry Extremities: non-tender Neuro/Psych: no motor/sensory deficits, alert, normal mood/affect, oriented x 3 ICD10 Worksheet Patient Problems: Problems Problem Status Onset Diarrhea Acute Diarrhea with dehydration Acute Incarcerated ventral hernia Acute Pneumonia Acute
[2017-03-21] MEDS: FOLIC ACID 1 MG TAB PO SCH (09:47)
[2017-03-21] MEDS: PANTOPRAZOLE SODIUM 40 MG TAB PO SCH ×2 (09:47→21:17)
[2017-03-21] MEDS: SENNOSIDES/DOCUSATE SODIUM TAB PO SCH ×2 (09:48→21:19)
[2017-03-21] MEDS: LEFLUNOMIDE 20 MG TAB PO SCH (09:48)
[2017-03-21] MEDS: buPROPion XL 150 MG TAB PO SCH (09:48)
[2017-03-21] MEDS: predniSONE 5 MG TAB PO SCH (09:49)
[2017-03-21] MEDS: DAPTOmycin 800 MG in NS 50 ML IV SCH (10:07)
--- NOTE | 2017-03-21 10:17 | SOAPPROG ---
SOAP Progress Note Assessment/Plan: Assessment/Plan: 76 Y M s/p recurrent ventral hernia repair, 02/24. peritonitis, s/p exlap with repair of sigmoid perforation and washout with abthera wound vac , 03/04. s/p washout, fascial closure with biologic mesh and wound vac, 03/06. s/p washout, removal of mesh, abthera vac placement, 03/14. s/p sigmoid colectomy with colostomy for perforation with peritoneal lavage and abthera vac, 03/16. s/p washout with fascial closure and vac placement, 03/19. Doing well. WBCs normal. Afebrile. Colostomy with fecal output. Wound vac to good suction. Restart lovenox. COPD. Planning outpatient f/u c pulm. RA. On prednisone and arava. Ostomy teaching today and bedside wound vac change today or tomorrow. Try to transition to PO pain meds. Transfer to [facility] status. S: Feeling a little stronger. Less pain. No N/V. O: alert, appropriate, nad ctab anteriorly rrr abd soft with vac, colostomy with dark soft stool. 03/21/17 10:18 Objective: Vital Signs Temp Pulse Resp BP Pulse Ox 36.6 C 65 17 129/50 H 94 03/21/17 08:00 03/21/17 08:00 03/21/17 08:00 03/21/17 08:00 03/21/17 08:00 Microbiology 03/14/17 22:43 Gram Stain - Final Abdomen - Swab 03/14/17 20:15 Blood Culture - Final Blood 03/14/17 20:00 Blood Culture - Final Blood Laboratory Results 03/20/17 05:00 03/20/17 05:00 03/20/17 03/21/17 03/22/17 05:59 05:59 05:59 Intake Total 3060.5 2791.0 Output Total 1901 2650 100 Balance 1159.5 141.0 -100 PT 16.8 SEC (12.0-15.0) H 03/15/17 04:00 INR 1.34 (0.83-1.16) H 03/15/17 04:00 ICD10 Worksheet Patient Problems: Problems Problem Status Onset Diarrhea Acute Diarrhea with dehydration Acute Incarcerated ventral hernia Acute Pneumonia Acute
[2017-03-21] MEDS: ENOXAPARIN 40 MG/0.4 ML SYR SC SCH (11:32)
--- NOTE | 2017-03-21 14:08 | WOCRNPDOC ---
WOCRN Advanced Assessment Note - Colostomy Assessment, Advanced Left Lower Abdomen Colostomy Stoma Colostomy Appliance Intact: Yes Colostomy Appliance Currently in Use: Two Piece Flat, 2 3/4, Cut to Fit Stoma Color: Red Stoma Turgor: Moist Stoma Shape: Oval Stoma Height: Protruding Slightly Mucocutaneus Junction: Intact Colostomy Effluent: Fecal Colostomy Details: End, Sarah's Pouch Peristomal Skin: Intact Colostomy Comment/Treatment Details: Continuned colostomy teaching at the bedside w/ patient and Blanca, including a full appliance change. Stoma protrudes just slightly above skin level, presently red and moist w/ intact mucocutaneous junction. Lanette-stomal skin is also intact. Both patient and his asked questions specific to care, and patient was able to recall some of the initial teaching from yesterday. Topics covered today included when to empty pouch, how often to change the appliance, how to measure stoma, and how to apply appliance. Ostomy wafer trimmed along medial edge to avoid overlapping onto midline incision and dressing. This RN was given verbal permission to enroll patient in [facility] program. No supply order generated at this time, as patient's DC status is uncertain. metal polisher and buffer apprentice will follow patient ongoing, checking in daily to determine supply needs for discharge.
[2017-03-21] MEDS: MICAFUNGIN NA 100 MG in NS 100 ML IV SCH (15:24)
--- NOTE | 2017-03-21 16:43 | ASMTCMCOM ---
CM Note CM Note Notes: Patient transferred from ICU to . Discharge plan remains [facility]. I spoke with Gloria and informed her that he will not be ready for discharge for a few days. She will need to re-submit insurance authorization. Updated notes sent. Date Signed: 03/21/2017 04:43 PM Electronically Signed By:Bess Corrales RN
--- NOTE | 2017-03-21 19:40 | HOSPPROG ---
Hospitalist Progress Note Assessment/Plan: DIAGNOSES: # acute re-injury of rotator cuff left shoulder here today 03/20 -so far better after 1 day of Celebrex and cold packs, continue that, consider subacromial steroid injection if does not improve -physical therapy # acute urine retention, new problem identified on March 19 in postop setting -multifactorial with probable chronic prostate disease, medications, recumbency, edema etc -resolved after 1 episode of straight catheterization of bladder # sigmoid perforation s/p oversew repair 03/04 # intra-abdominal abscess s/p washout and mesh removal 03/14, 2nd washout surgery 03/16, 3rd washout surgery with repair of colon leak 03/19 - cx with enterococcus faecium - abd per id (zosyn and fluconazole) -had partial closure of fascia and skin on the as well # 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 # a-fib with RVR in setting of physiologic stress - now in NSR - hold full dose AC - hold metop now that in NSR # GI bleed with melena - unclear source - resolved # esophagitis - cont protonix 40 po bid # ABLA - s/p 5U PRBC # hyperglycemia - A1c 6% - cont SSI insulin ; also on low dose glargine # acute on chronic (nocturnal O2) respiratory failure - resolved; off mechanical ventilation # GUSTAVO in setting of sigmoid perforation; resolved # COPD, possible exacerbation - resolved # CAD - L base akinetic, elevated trop - no CP, needs ischemic eval at some point # chronic steroid use - on baseline prednisone 5mg # RA - leflunamide, steroids # depr - started on wellbutrin Patient reviewed on multidisciplinary rounds with Dr. Waters and ICU team. Overall he is making slow but good progress. PLANS: Continue cold packs and Celebrex for his shoulder, and have physical therapy start to work with him here, will need outpatient physical therapy -consider steroid injection subacromial if he does not have good response here Agree with transfer to [facility] today Continue current supportive treatments, antibiotics antifungal, steroid Continue follow sugars white blood cell count temperature vital signs closely Physical occupational therapy, attempt to increase mobility as he is able DVT prophylaxis Follow sugars closely SUBJECTIVE: Some incisional pain today otherwise bili feels good and is able to eat okay Right shoulder pain much better after starting Celebrex last night OBJECTIVE Vitals reviewed: Blood pressure is better today otherwise all stable without fever Pharmacometrician, my review: Sinus Exam: alert oriented skin warm dry color ok resps not labored lungs clear BSs heart regular abd soft distended minimally tender, bowel sounds present, wound VAC in place; limbs warm, mild edema Still very limited active range of motion of right shoulder due to rotator cuff pain, good passive range of motion iv site ok Laboratory data: Hemoglobin stable at 8 today White blood cell count metabolic panel and sugars all reviewed in all stable and satisfactory range Objective: Vital Signs Temp Pulse Resp BP Pulse Ox 36.8 C 70 12 169/81 H 94 03/21/17 19:27 03/21/17 19:27 03/21/17 19:27 03/21/17 19:27 03/21/17 19:27 Microbiology 03/14/17 22:43 Gram Stain - Final Abdomen - Swab Anaerobic Culture - Final Enterococcus Faecium Enterococcus Faecium Vre Laboratory Results 03/20/17 05:00 03/20/17 05:00 03/20/17 03/21/17 03/22/17 06:59 06:59 06:59 Intake Total 3060.5 2791.0 800 Output Total 1901 2650 930 Balance 1159.5 141.0 -130 PT 16.8 SEC (12.0-15.0) H 03/15/17 04:00 INR 1.34 (0.83-1.16) H 03/15/17 04:00 ICD10 Worksheet Patient Problems: Problems Problem Status Onset Diarrhea Acute Diarrhea with dehydration Acute Incarcerated ventral hernia Acute Pneumonia Acute
[2017-03-21] MEDS: D5W 1/2 NS W/ 20 KCl/L 1,000 ML IV SCH (21:16)
[2017-03-21] MEDS: MELATONIN 3 MG TAB PO SCH (21:17)
[2017-03-21] MEDS: INSULIN GLARGINE 100 UNITS/ML UNIT SC SCH (21:18)
[2017-03-21] MEDS: TEMAZEPAM 15 MG CAP PO SCH (21:19)
[2017-03-21] MEDS: TERAZOSIN HCL 2 MG CAP PO SCH (21:20)
[2017-03-22] MEDS: PIPERACILLIN/TAZO 4.5 GM/DEX 100 ML IV SCH ×3 (05:41→21:04)
[2017-03-22 06:02] LABS: PLATELET COUNT 147 10^3/uL (150-400)
[2017-03-22] MEDS: HYDROmorphONE/DILAUDID 1 MG/ML INJ IVP PRN ×2 (08:02→21:06)
[2017-03-22] MEDS: LEFLUNOMIDE 20 MG TAB PO SCH (08:03)
[2017-03-22] MEDS: ENOXAPARIN 40 MG/0.4 ML SYR SC SCH (08:03)
[2017-03-22] MEDS: PANTOPRAZOLE SODIUM 40 MG TAB PO SCH ×2 (08:04→21:14)
[2017-03-22] MEDS: buPROPion XL 150 MG TAB PO SCH (08:04)
[2017-03-22] MEDS: FOLIC ACID 1 MG TAB PO SCH (08:04)
[2017-03-22] MEDS: predniSONE 5 MG TAB PO SCH (08:04)
[2017-03-22] MEDS: INSULIN REGULAR HUMAN 100 UNIT/ML UNIT SC SCH ×4 (08:05→21:34)
[2017-03-22] MEDS: SENNOSIDES/DOCUSATE SODIUM TAB PO SCH ×2 (08:05→21:13)
[2017-03-22] MEDS: OXYCODONE/APAP 5/325 TAB PO PRN ×2 (09:56→16:02)
--- NOTE | 2017-03-22 10:07 | PCMIDPN ---
Assessment/Plan: Assessment/Plan: * Peritonitis secondary to sigmoid perforation with subsequent abscess formation and repeat drainage: Continued clinical improvement. Plan 2 weeks of antibiotic therapy post washout over preceding weekend were no evidence of infection noted (stop date 04/02/17). Antibiotic therapy with daptomycin, Zosyn , and micafungin as previously outlined to cover VRE, potential intra-abdominal gabriel, and Shaina. Will obtain CPK in a.m. while on daptomycin therapy. Time spent, 25 min, of which greater than half was spent in education/counseling /coordination of care related to peritonitis and plan of care. 03/22/17 10:04 03/22/17 10:07 Subjective: Patient eager to be discharged from hospital. No significant abdominal discomfort other than associated with titration of pain medications. No myalgias. No dry cough. Objective: Vital Signs Temp Pulse Resp BP Pulse Ox 36.3 C 67 17 162/79 H 92 03/22/17 07:48 03/22/17 07:48 03/22/17 07:48 03/22/17 07:48 03/22/17 07:48 Microbiology 03/14/17 22:43 Gram Stain - Final Abdomen - Swab Anaerobic Culture - Final Enterococcus Faecium Enterococcus Faecium Vre Laboratory Results 03/22/17 05:20 03/20/17 05:00 03/21/17 03/22/17 03/23/17 05:59 05:59 05:59 Intake Total 2791.0 1850 Output Total 2650 1860 500 Balance 141.0 -10 -500 Daptomycin # 6 Micafungin # 5 Zosyn # 21 - Physical Exam General Appearance: alert, no apparent distress EENT: No scleral icterus, No thrush Respiratory: lungs clear, No respiratory distress Cardiac/Chest: regular rate, rhythm, systolic murmur (2/6 left and right upper sternal border) Abdomen: non-tender, other (Wound VAC in place without erythema), No distended - Line/s RUE PICC Lines: No drainage, No erythema ICD10 Worksheet Patient Problems: Problems Problem Status Onset Diarrhea Acute Diarrhea with dehydration Acute Incarcerated ventral hernia Acute Pneumonia Acute
[2017-03-22] MEDS: LORazepam 2 MG/ML INJ IVP SCH (10:22)
[2017-03-22] MEDS: LIDOCAINE HCL 4% TOPICAL SOLN 50ML MM SCH (10:26)
[2017-03-22] MEDS: DAPTOmycin 800 MG in NS 50 ML IV SCH (10:30)
--- NOTE | 2017-03-22 10:43 | SOAPPROG ---
SOAP Progress Note Assessment/Plan: Assessment/Plan: 76 Y M s/p recurrent ventral hernia repair, 02/24. peritonitis, s/p exlap with repair of sigmoid perforation and washout with abthera wound vac , 03/04. s/p washout, fascial closure with biologic mesh and wound vac, 03/06. s/p washout, removal of mesh, abthera vac placement, 03/14. s/p sigmoid colectomy with colostomy for perforation with peritoneal lavage and abthera vac, 03/16. s/p washout with fascial closure and vac placement, 03/19. Continues to do well. No major changes. Wound vac changed today. Ostomy working well. WBCs normal. H&H stable. Afebrile. Lovenox restarted. COPD. Planning outpatient f/u c pulm. RA. On prednisone and arava. Transition to PO pain meds. Hesitant to debride wound today as fascia is quite attenuated. Continue wound vac management for now. Dispo: discussed with patient, case management, and ID. Tentatively planning for d/c to SNF on Monday after wound vac change. Joesph is motivated today--wants to go to snf and get stronger. Plan for IV abx for 2 weeks from last washout. S: Feeling a little stronger. Less pain. No N/V. O: alert, appropriate, nad ctab anteriorly rrr abd soft, inc cdi, lower abdominal incisional wound is clean, mixed granulation and fat necrosis. colostomy with dark soft stool. 03/22/17 10:39 Objective: Vital Signs Temp Pulse Resp BP Pulse Ox 36.3 C 67 17 162/79 H 92 03/22/17 07:48 03/22/17 07:48 03/22/17 07:48 03/22/17 07:48 03/22/17 07:48 Microbiology 03/14/17 22:43 Gram Stain - Final Abdomen - Swab Anaerobic Culture - Final Enterococcus Faecium Enterococcus Faecium Vre Laboratory Results 03/22/17 05:20 03/20/17 05:00 03/21/17 03/22/17 03/23/17 05:59 05:59 05:59 Intake Total 2791.0 1850 Output Total 2650 1860 500 Balance 141.0 -10 -500 PT 16.8 SEC (12.0-15.0) H 03/15/17 04:00 INR 1.34 (0.83-1.16) H 03/15/17 04:00 ICD10 Worksheet Patient Problems: Problems Problem Status Onset Diarrhea Acute Diarrhea with dehydration Acute Incarcerated ventral hernia Acute Pneumonia Acute
[2017-03-22] MEDS: Tiotropium Br/Olodaterol Hcl [Stiolto Respimat Inhal Spray] 4 GM IH SCH ×2 (10:51→20:22)
--- NOTE | 2017-03-22 12:41 | WOCRNPDOC ---
WOCRN Advanced Assessment Note - Skin Integrity Problem, Advanced Assess Abdomen Surgical Wound/Incision Dressing Type: Black Vac Foam Dressing Description: Clean/Dry, Intact Closure Description: Retention Sutures Exudate Amount: Moderate Exudate Characteristic(s): Serosanguinous Integumentary Issue Intervention: Dressing Changed Lanette Wound Swelling: Mild Wound Bed Constitution: Granulation Tissue, Smooth Tissue, Red/[place] - Non Granular Tissue, Undermining (7-3 oclock 1 to 5.8 cm. Deepest at 12 and 3 oclock ) Site Measurement - Head-to-Toe Length X Width X Depth (cm): 10.7x14.3x3 Skin Integrity Problem Comment: Clean wound bed without necrosis. Used 5 ml of 4 % liquid lidocaine in foam to pre numb wound. Patient also recieved dilaudid and ativan IV. Tolerated proceedure well. After removal of foam wound bed was flushed with ns. Then another 7 ml of 4% liquid lidocaine used to numb base for foam replacement. This helped more than the lidocaine used for removal. x3 pieces of medium black simplace placed in wound bed. Then drape was extended over closed superior portion of the incision after applying dry gauze to cover lisa for the seal. Vac was restarted at -125 mm Hg continuous suction without any leaks. Elizabeth LEIGH and Te sheikh RN in room for change. Jyoti WILLIAMSON visualized wound bed prior to vac replacement. Next change due monday.
--- NOTE | 2017-03-22 14:59 | ASMTCMCOM ---
CM Note CM Note Notes: I sent updated notes to Gloria at [facility] - she then informed me that patient's IV medication costs are prohibitive and the facility can no longer accept him. Per ID, patient's medication regimen is strict (Dapto/Zosyn/Micafungin) and cannot be altered. He will need to be covered by this therapy until 04/03. Consequently, I sent referrals to four LTAC facilities - [facility], [facility], [facility], and [facility]. I spoke with patient's Blanca who wants to visit the facilities. When she choses one, they will have to submit for insurance authorization. This could become a fairly time-consuming process. Blanca still does not feel able to care for patient at home d/t his debility and her inability to help him transfer, move, etc. Hopefully, one of the LTAC facilities will be able to accept him. We will check in with Blanca tomorrow. She is aware that surgery had hoped to discharge him on Monday. Case Management will follow. Date Signed: 03/22/2017 02:38 PM Electronically Signed By:Bess Corrales RN
--- NOTE | 2017-03-22 15:52 | HOSPPROG ---
Hospitalist Progress Note Assessment/Plan: #76 yo M w ra and abd hernia repair followed by complex hospital stay acute re-injury of rotator cuff left shoulder here today 03/20 -so far better after 1 day of Celebrex and cold packs, continue that, consider subacromial steroid injection if does not improve -physical therapy acute urine retention, new problem identified on March 19 in postop setting -multifactorial with probable chronic prostate disease, medications, recumbency, edema etc -resolved after 1 episode of straight catheterization of bladder sigmoid perforation s/p oversew repair 03/04 intra-abdominal abscess s/p washout and mesh removal 03/14, 2nd washout surgery 03/16, 3rd washout surgery with repair of colon leak 03/19 - cx with enterococcus faecium - abd per id (zosyn and fluconazole) -had partial closure of fascia and skin on the as well uncontrolled pain - 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 a-fib with RVR in setting of physiologic stress - now in NSR - hold full dose AC - hold metop now that in NSR GI bleed with melena - unclear source - resolved esophagitis - cont protonix 40 po bid ABLA - s/p 5U PRBC hyperglycemia - A1c 6% - cont SSI insulin ; also on low dose glargine acute on chronic (nocturnal O2) respiratory failure - resolved; off mechanical ventilation GUSTAVO in setting of sigmoid perforation; resolved COPD, possible exacerbation - resolved CAD - L base akinetic, elevated trop - no CP, needs ischemic eval at some point chronic steroid use - on baseline prednisone 5mg RA - leflunamide, steroids depr - started on wellbutrin Subjective: case d/w dr pinto Objective: Vital Signs Temp Pulse Resp BP Pulse Ox 36.4 C 69 18 169/97 H 95 03/22/17 15:42 03/22/17 15:42 03/22/17 15:42 03/22/17 15:42 03/22/17 15:42 Microbiology 03/14/17 22:43 Gram Stain - Final Abdomen - Swab Anaerobic Culture - Final Enterococcus Faecium Enterococcus Faecium Vre Laboratory Results 03/22/17 05:20 03/20/17 05:00 03/21/17 03/22/17 03/23/17 05:59 05:59 05:59 Intake Total 2791.0 1850 Output Total 2650 1860 750 Balance 141.0 -10 -750 PT 16.8 SEC (12.0-15.0) H 03/15/17 04:00 INR 1.34 (0.83-1.16) H 03/15/17 04:00 - Physical Exam Constitutional: no apparent distress, chronically ill appearing Eyes: PERRL, anicteric sclera Ears, Nose, Mouth, Throat: moist mucous membranes, hearing normal Cardiovascular: regular rate and rhythym, no murmur, rub, or gallop Respiratory: no respiratory distress, no rales or rhonchi Gastrointestinal: normoactive bowel sounds, soft, non-tender abdomen Genitourinary: No ramírez in urethra Skin: warm, normal color Musculoskeletal: full muscle strength, no muscle tenderness Neurologic: AAOx3 ICD10 Worksheet Patient Problems: Problems Problem Status Onset Diarrhea Acute Diarrhea with dehydration Acute Incarcerated ventral hernia Acute Pneumonia Acute
[2017-03-22] MEDS: MICAFUNGIN NA 100 MG in NS 100 ML IV SCH (16:48)
[2017-03-22] MEDS: D5W 1/2 NS W/ 20 KCl/L 1,000 ML IV SCH ×2 (18:37→21:04)
[2017-03-22] MEDS: TEMAZEPAM 15 MG CAP PO SCH (21:10)
[2017-03-22] MEDS: TERAZOSIN HCL 2 MG CAP PO SCH (21:11)
[2017-03-22] MEDS: MELATONIN 3 MG TAB PO SCH (21:14)
[2017-03-22] MEDS: INSULIN GLARGINE 100 UNITS/ML UNIT SC SCH (21:35)
[2017-03-23] MEDS: PIPERACILLIN/TAZO 4.5 GM/DEX 100 ML IV SCH ×3 (05:48→21:28)
[2017-03-23] MEDS: OXYCODONE/APAP 5/325 TAB PO PRN ×3 (05:54→21:24)
[2017-03-23] MEDS: INSULIN REGULAR HUMAN 100 UNIT/ML UNIT SC SCH ×4 (09:10→21:04)
[2017-03-23] MEDS: PANTOPRAZOLE SODIUM 40 MG TAB PO SCH ×2 (09:15→21:23)
[2017-03-23] MEDS: predniSONE 5 MG TAB PO SCH (09:15)
[2017-03-23] MEDS: buPROPion XL 150 MG TAB PO SCH (09:15)
[2017-03-23] MEDS: ENOXAPARIN 40 MG/0.4 ML SYR SC SCH (09:15)
[2017-03-23] MEDS: LEFLUNOMIDE 20 MG TAB PO SCH (09:15)
[2017-03-23] MEDS: FOLIC ACID 1 MG TAB PO SCH (09:15)
[2017-03-23] MEDS: SENNOSIDES/DOCUSATE SODIUM TAB PO SCH ×2 (09:16→21:27)
[2017-03-23] MEDS: DAPTOmycin 800 MG in NS 50 ML IV SCH (09:58)
[2017-03-23] MEDS: Tiotropium Br/Olodaterol Hcl [Stiolto Respimat Inhal Spray] 4 GM IH SCH ×2 (10:09→21:28)
[2017-03-23] MEDS: ALTEPLASE 2 MG VIAL IVP PRN (11:06)
--- NOTE | 2017-03-23 14:11 | ASMTCMCOM ---
CM Note CM Note Notes: [facility] all called to say that they could take pt but one of her meds is expensive and [facility] may refuse to cover it. Spoke with pt's about her choice and she prefers [facility]. LM with Sallie in admissions about possibility of pt DC'ing there. have not heard back. CM will continue to follow for DC plan. Date Signed: 03/23/2017 02:10 PM Electronically Signed By:Concepcion Sullivan LCSW
--- NOTE | 2017-03-23 14:44 | HOSPPROG ---
Hospitalist Progress Note Assessment/Plan: #76 yo M w ra and abd hernia repair followed by complex hospital stay acute re-injury of rotator cuff left shoulder here today 03/20 -so far better after 1 day of Celebrex and cold packs, continue that, consider subacromial steroid injection if does not improve -physical therapy acute urine retention, new problem identified on March 19 in postop setting -multifactorial with probable chronic prostate disease, medications, recumbency, edema etc -resolved after 1 episode of straight catheterization of bladder sigmoid perforation s/p oversew repair 03/04 intra-abdominal abscess s/p washout and mesh removal 03/14, 2nd washout surgery 03/16, 3rd washout surgery with repair of colon leak 03/19 - cx with enterococcus faecium - abd per id (zosyn and fluconazole) -had partial closure of fascia and skin on the as well uncontrolled pain - 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 a-fib with RVR in setting of physiologic stress - now in NSR - hold full dose AC - hold metop now that in NSR GI bleed with melena - unclear source - resolved esophagitis - cont protonix 40 po bid ABLA - s/p 5U PRBC hyperglycemia - A1c 6% - cont SSI insulin ; also on low dose glargine acute on chronic (nocturnal O2) respiratory failure - resolved; off mechanical ventilation GUSTAVO in setting of sigmoid perforation; resolved COPD, possible exacerbation - resolved CAD - L base akinetic, elevated trop - no CP, needs ischemic eval at some point chronic steroid use - on baseline prednisone 5mg RA - leflunamide, steroids depr - started on wellbutrin Subjective: doing well Objective: Vital Signs Temp Pulse Resp BP Pulse Ox 36.3 C 64 16 165/84 H 94 03/23/17 11:44 03/23/17 11:44 03/23/17 11:44 03/23/17 11:44 03/23/17 11:44 Laboratory Results 03/22/17 05:20 03/20/17 05:00 03/22/17 03/23/17 03/24/17 05:59 05:59 05:59 Intake Total 1850 1550 Output Total 1860 5713 470 Balance -10 -425 -470 PT 16.8 SEC (12.0-15.0) H 03/15/17 04:00 INR 1.34 (0.83-1.16) H 03/15/17 04:00 - Physical Exam Constitutional: no apparent distress, appears nourished Eyes: PERRL, anicteric sclera Ears, Nose, Mouth, Throat: moist mucous membranes, hearing normal Cardiovascular: regular rate and rhythym, no murmur, rub, or gallop Respiratory: no respiratory distress Gastrointestinal: normoactive bowel sounds, soft, non-tender abdomen Genitourinary: no bladder fullness, No ramírez in urethra Skin: warm, normal color Musculoskeletal: full muscle strength Neurologic: AAOx3 ICD10 Worksheet Patient Problems: Problems Problem Status Onset Diarrhea Acute Diarrhea with dehydration Acute Incarcerated ventral hernia Acute Pneumonia Acute
[2017-03-23] MEDS: MICAFUNGIN NA 100 MG in NS 100 ML IV SCH (15:06)
--- NOTE | 2017-03-23 16:23 | WOCRNPDOC ---
WOCRN Advanced Assessment Note - Colostomy Assessment, Advanced Left Lower Abdomen Colostomy Stoma Colostomy Appliance Intact: Yes Colostomy Appliance Currently in Use: Two Piece Flat, 2 3/4, Cut to Fit Stoma Color: [place] Stoma Turgor: Moist Stoma Shape: Oval Stoma Height: Protruding Slightly Mucocutaneus Junction: Intact Colostomy Size - Head-to-Toe Length X Width X Depth (cm): 3.2x4.4 oval Peristomal Skin: Intact Colostomy Comment/Treatment Details: Stopped by to assist patient and with colostomy change. Patient not able to well visualize abdomen, complicating ostomy change. I removed pouch and wafer, demonstrating good technique for bracing the skin. Stoma was cleaned with toilet paper. A new template was cut as we were unable to find the original. Discussed with patient that he should measure the stoma approximately weekly until it stabilizes in size. New wafer and template cut for the patient. Adhesive for wafer cut to minimize contact with dressings for medial abdominal incision and wound vac. Discussed how changing the direction of the bag can allow for emptying in toilet vs cylinder. Patient able to demonstrate good technique in securing the bag to the wafer. Patient disposition still unclear at this point. Wound care will check in again with patient when disposition clear.
--- NOTE | 2017-03-23 17:03 | SOAPPROG ---
JUAN PABLO Progress Note Assessment/Plan: Assessment: 76 Y M s/p recurrent ventral hernia repair, 02/24. peritonitis, s/p exlap with repair of sigmoid perforation and washout with abthera wound vac, 03/04. s/p washout, fascial closure with biologic mesh and wound vac, 03/06. s/p washout, removal of mesh, abthera vac placement, 03/14 s/p washout, sigmoid colectomy, colostomy creation, replacement abthera wound vac 03/16 s/p washout, fascial closure 03/19 S: Doing well. Pain well controlled on oral pain meds. Voiding spontaneously. Passing flatus and soft stool into colostomy bag. Getting OOB with PT. Discussed plan for pt to go to SNF after wound vac change tomorrow. Will work with telephonic case manager. O: Afebrile NAD No WOB. Abd: Nontender. +BS. Wound vac intact. Colostomy: bright red, soft brown stool in bag Plan: Plan to go to SNF after wound vac change tomorrow. Pt seen with Dr. Butt. 03/23/17 17:01 Objective: Vital Signs Temp Pulse Resp BP Pulse Ox 36.4 C 66 16 167/92 H 97 03/23/17 16:00 03/23/17 16:00 03/23/17 16:00 03/23/17 16:00 03/23/17 16:00 Laboratory Results 03/22/17 05:20 03/20/17 05:00 03/22/17 03/23/17 03/24/17 05:59 05:59 05:59 Intake Total 1850 1550 Output Total 7220 0801 865 Balance -10 -425 -790 PT 16.8 SEC (12.0-15.0) H 03/15/17 04:00 INR 1.34 (0.83-1.16) H 03/15/17 04:00 ICD10 Worksheet Patient Problems: Problems Problem Status Onset Diarrhea Acute Diarrhea with dehydration Acute Incarcerated ventral hernia Acute Pneumonia Acute
[2017-03-23] MEDS: TEMAZEPAM 15 MG CAP PO SCH (21:23)
[2017-03-23] MEDS: MELATONIN 3 MG TAB PO SCH (21:24)
[2017-03-23] MEDS: TERAZOSIN HCL 2 MG CAP PO SCH (21:24)
[2017-03-23] MEDS: INSULIN GLARGINE 100 UNITS/ML UNIT SC SCH (21:29)
[2017-03-24] MEDS: OXYCODONE/APAP 5/325 TAB PO PRN ×4 (02:17→18:32)
[2017-03-24] MEDS: PIPERACILLIN/TAZO 4.5 GM/DEX 100 ML IV SCH ×3 (06:33→20:38)
[2017-03-24] MEDS: ALBUTEROL IH PRN ×2 (08:45→14:16)
[2017-03-24] MEDS: MDI IH PRN ×2 (08:45→14:16)
[2017-03-24] MEDS: Tiotropium Br/Olodaterol Hcl [Stiolto Respimat Inhal Spray] 4 GM IH SCH ×2 (08:52→19:34)
[2017-03-24] MEDS: FOLIC ACID 1 MG TAB PO SCH (08:54)
[2017-03-24] MEDS: predniSONE 5 MG TAB PO SCH (08:54)
[2017-03-24] MEDS: LEFLUNOMIDE 20 MG TAB PO SCH (08:55)
[2017-03-24] MEDS: buPROPion XL 150 MG TAB PO SCH (08:55)
[2017-03-24] MEDS: PANTOPRAZOLE SODIUM 40 MG TAB PO SCH ×2 (08:55→20:40)
[2017-03-24] MEDS: ENOXAPARIN 40 MG/0.4 ML SYR SC SCH (08:57)
[2017-03-24] MEDS: LORazepam 2 MG/ML INJ IVP SCH (09:32)
[2017-03-24] MEDS: HYDROmorphONE/DILAUDID 1 MG/ML INJ IVP PRN (09:37)
[2017-03-24] MEDS: LIDOCAINE HCL 4% TOPICAL SOLN 50ML MM SCH (09:38)
[2017-03-24] MEDS: SENNOSIDES/DOCUSATE SODIUM TAB PO SCH ×2 (10:12→20:39)
[2017-03-24] MEDS: INSULIN REGULAR HUMAN 100 UNIT/ML UNIT SC SCH ×4 (10:12→21:38)
--- NOTE | 2017-03-24 10:20 | SOAPPROG ---
SOAP Progress Note Assessment/Plan: Assessment: STATUS POST VENTRAL HERNIA REPAIR/MINIMAL DRAINAGE/URINE OUTPUT OKAY/TOLERATING P.O./COMPLAINS OF PAIN AFEBRILE/VITAL SIGNS STABLE NEGATIVE BMS OR FLATUS/WOUND OKAY/ABDOMEN SOFT NONTENDER BUT SLIGHTLY DISTENDED Plan: CONTINUE PRESENT ORDERS 02/25/17 12:14 02/25/17 14:34 02/26/17 09:00 wound ok/ binder in place/ poor appetite/ +flatus and bm/ afebrile/ vs stable/ uo good/ home 1-2 days/ starting to mobilize 03/04/17 07:59 FEELING BETTER/ ABD SOFT/ WOUND OK/ UO OK/ EATING CAREFULLY/ WANTS TO GO HOME IN AM 03/04/17 08:32 sudden development of melena with hct 21/ abd soft, nontender/afebrile/ wound ok / minimal lionel drains small amount of possible free air on cxr plan check coags, gi consult 03/06/17 10:09 vs stable, uo good/ hct down to 22/ back to or today for washout and possible closure 03/08/17 20:10 PATIENT ALERT/VITAL SIGNS STABLE/URINE OUTPUT GOOD/WOUND VAC IN PLACE AND FUNCTIONING WELL/ABDOMEN SOFT WITH POSITIVE BOWEL SOUNDS/AFEBRILE PLAN FOR WOUND VAC CHANGE TODAY AND TISSUE GRANULATING WELL/PLAN TRANSFER TO [facility] IN CONTINUE WOUND VAC 03/10/17 09:33 feeling better/ wound ok/ afebrile/ eating ok/ vac change today/ home 2-3 days 03/11/17 12:35 FEELING BETTER/ WOUND INTACT IN OKAY/ AFEBRILE/HOPEFULLY REHAB NEXT WEEK 03/12/17 13:34 Seems to be doing well today/ however has developed AFib/abdomen soft nontender/wound VAC in place and working/active bowel sounds with active flatus and some BM Afebrile/WBC 11 K Questionable cause of his AFib 03/14/17 21:49 PATIENT WITH FEVER TONIGHT IN WHITE COUNT ELEVATED TO 14 K/CT SHOWS PELVIC ABSCESS/DISCUSSED WITH RADIOLOGY WHO FEELS THAT IT MAY BE MULTILOCULATED AND INCOMPLETELY DRAINED WITH PERCUTANEOUS INTERVENTION. RISKS AND OPTIONS FULLY DISCUSSED WITH PATIENT AND . PLAN IS TO PROCEED WITH LAPAROTOMY WITH WASHOUT DRAINAGE. THERE IS THE POSSIBILITY OF A NEED FOR COLOSTOMY IF HE HAS BREAKDOWN OF HIS PREVIOUS COLONIC PERFORATION OR OTHER REASON FOR ABSCESS FORMATION ABDOMEN IS SOFT SLIGHTLY PROTUBERANT WITH BOWEL SOUNDS AND HE HAS BEEN HAVING BOWEL MOVEMENTS AND FLATUS TODAY CHEST CLEAR/COR REGULAR RHYTHM WITH MILD TACHYCARDIA/HEENT IS NONICTERIC/VITAL SIGNS ARE STABLE EXCEPT FOR THE NEW TEMPERATURE RISE PLAN LAPAROTOMY 03/20/17 12:11 Afebrile/vital signs great/wound VAC in place and decrease drainage/afebrile/ overall improving/wound VAC change on Monday03/21/17 09:18 COMFORTABLE, VAC IN PLACE/ EATING/ AFEBRILE/ SOME DYSURIA/ VAC CHANGE IN AM 03/24/17 10:18 AFEBRILE/ WOUND GRANULATING BEAUTIFULLY/ COMFORTABLE/ PLAN VAC CHANGE IN 3 DAYS/ DELAYED CLOSURE WITH BIO MESH SOON Objective: Vital Signs Temp Pulse Resp BP Pulse Ox 36.4 C 67 18 153/78 H 94 03/24/17 04:00 03/24/17 07:24 03/24/17 07:24 03/24/17 07:24 03/24/17 07:24 Laboratory Results 03/22/17 05:20 03/20/17 05:00 03/23/17 03/24/17 03/25/17 05:59 05:59 05:59 Intake Total 1550 1150 500 Output Total 1975 1460 250 Balance -425 -310 250 PT 16.8 SEC (12.0-15.0) H 03/15/17 04:00 INR 1.34 (0.83-1.16) H 03/15/17 04:00 ICD10 Worksheet Patient Problems: Problems Problem Status Onset Diarrhea Acute Diarrhea with dehydration Acute Incarcerated ventral hernia Acute Pneumonia Acute
--- NOTE | 2017-03-24 10:28 | SOAPPROG ---
JUAN PABLO Progress Note Assessment/Plan: Assessment: 76 Y M s/p recurrent ventral hernia repair, 02/24. peritonitis, s/p exlap with repair of sigmoid perforation and washout with abthera wound vac, 03/04. s/p washout, fascial closure with biologic mesh and wound vac, 03/06. s/p washout, removal of mesh, abthera vac placement, 03/14 s/p washout, sigmoid colectomy, colostomy creation, replacement abthera wound vac 03/16 s/p washout, fascial closure 03/19 S: Doing well. Pain well controlled on oral pain meds. Voiding spontaneously. Passing flatus and soft stool into colostomy bag. Getting OOB with PT. Pt motivated to be discharged to SNF. O: Afebrile NAD No WOB. Abd: Nontender. +BS. Wound vac intact. Colostomy: bright red, soft brown stool in bag Plan: Discussed plan to be discharged today, however, wants pt to go to a facility in [facility] that won't admit him until Monday. steam table worker to discuss discharge plans with pt and . Another complicating factor is the fact that he is on daptomycin until 04/03, which insurance may not pay for in SNF. If pt stays over the weekend, will plan on another vac change on Monday, then discharge after that. Follow up in office in one week. Pt seen with Dr. Butt. 03/24/17 10:21 Objective: Vital Signs Temp Pulse Resp BP Pulse Ox 36.4 C 67 18 153/78 H 94 03/24/17 04:00 03/24/17 07:24 03/24/17 07:24 03/24/17 07:24 03/24/17 07:24 Laboratory Results 03/22/17 05:20 03/20/17 05:00 03/23/17 03/24/17 03/25/17 05:59 05:59 05:59 Intake Total 1550 1150 500 Output Total 1975 1460 250 Balance -425 -310 250 PT 16.8 SEC (12.0-15.0) H 03/15/17 04:00 INR 1.34 (0.83-1.16) H 03/15/17 04:00 ICD10 Worksheet Patient Problems: Problems Problem Status Onset Diarrhea Acute Diarrhea with dehydration Acute Incarcerated ventral hernia Acute Pneumonia Acute
[2017-03-24] MEDS: DAPTOmycin 800 MG in NS 50 ML IV SCH (10:36)
--- NOTE | 2017-03-24 11:03 | WOCRNPDOC ---
TONY Advanced Assessment Note - Skin Integrity Problem, Advanced Assess Abdomen Surgical Wound/Incision Dressing Type: Black Vac Foam (3 pieces removed), Wound Vac Dressing Description: Intact Exudate Amount: Minimal Exudate Color: Reddish/Yellow Exudate Characteristic(s): Serosanguinous Integumentary Issue Intervention: Dressing Changed Lanette Wound Swelling: None Wound Bed Color: Red, Yellow Wound Bed Constitution: Granulation Tissue, Red/Mascot - Non Granular Tissue, Undermining (from 7-3 o'clock; 1cm from 7-11, 3.5cm @12, and 5cm from 1-3), Mixed Loose & Adhered Slough/Eschar (minimal, adhered, along R proximal aspect of wound bed) Site Odor: None Site Measurement - Head-to-Toe Length X Width X Depth (cm): 10.5cmx14.1cmx2.8cm Skin Integrity Problem Comment: Patient pre-medicated w/ IV Ativan and Dilaudid , and 4% lidocaine solution injected into vac foam using a 19g needle prior to removal. Wound bed predominantly a mix of smooth and granulating tissues (80%); there is an area (approx. 20%) on the upper R aspect of the wound bed that is adhered slough/eschar, appears superficial. Dr. Butt assessed wound and plan is to continue w/ vac for another 1-2 weeks, at which point he plans to attempt a closure. Lanette-wound skin prepped and draped, and 3 pieces of black Simplace foam placed into wound bed. Vac settings resume at -125mmHg low, continuous suction, no apparent leaks. possible DC to rehab facility today. Staff RNs Renu and Nicole given instructions about disconnecting vac tubing for transport.
--- NOTE | 2017-03-24 12:49 | PCMIDPN ---
Assessment/Plan: 1. Peritonitis secondary to sigmoid perforation with abscess formation status post drainage: As outlined by Dr. Mendoza, the patient will continue present antibiotics as is through April 02. He will likely go to a [facility] facility in [facility] on Monday. Although the Shaina albicans is susceptible to fluconazole, upon review of the patient's notes, it is reported that Shaina grew in spite of being on fluconazole ostensibly with adequate source control.. Would prefer not to rock the boat and continue present antibiotics as is. Recent CK level fine. Subjective: In good spirits. No complaints. Eager to get out of here. Objective: Daptomycin 800 mg IV daily day 7 Micafungin 100 mg IV daily day 6 Zosyn 4.5 g IV q.8 hours day Stop date for antibiotics April 02 T-max 36.7degrees Vital Signs Temp Pulse Resp BP Pulse Ox 36.8 C 69 17 173/87 H 95 03/24/17 12:07 03/24/17 12:07 03/24/17 12:07 03/24/17 12:07 03/24/17 12:07 Laboratory Results 03/22/17 05:20 03/20/17 05:00 03/23/17 03/24/17 03/25/17 05:59 05:59 05:59 Intake Total 1550 1150 500 Output Total 1975 1460 250 Balance -425 -310 250 No new microbiology Fluconazole YO 0.5 - Physical Exam General Appearance: alert, no apparent distress EENT: pharynx normal, No thrush Respiratory: lungs clear Abdomen: other (Colostomy bag with thin brown liquid stool. No abdominal discomfort. Wound VAC inferior to ostomy with no surrounding erythema or tenderness.) Skin: No rash ICD10 Worksheet Patient Problems: Problems Problem Status Onset Diarrhea Acute Diarrhea with dehydration Acute Incarcerated ventral hernia Acute Pneumonia Acute
[2017-03-24] MEDS: MICAFUNGIN NA 100 MG in NS 100 ML IV SCH (15:10)
--- NOTE | 2017-03-24 15:17 | ASMTCMCOM ---
CM Note CM Note Notes: Pt was accepted by [facility] and they received ins auth. Doc to Doc was completed, transport set up and final orders faxed. Then Blanca was sent to ED compaining if chest pain. Decision made to delay DC until tomorrow. [facility], Dr Butt OVEREDGE SEWER, RN and [facility] all were notfied. CM to follow. Date Signed: 03/24/2017 03:17 PM Electronically Signed By:Concepcion Sullivan LCSW
[2017-03-24] MEDS: TERAZOSIN HCL 2 MG CAP PO SCH (20:39)
[2017-03-24] MEDS: TEMAZEPAM 15 MG CAP PO SCH (20:39)
[2017-03-24] MEDS: INSULIN GLARGINE 100 UNITS/ML UNIT SC SCH (21:37)
[2017-03-24] MEDS: MELATONIN 3 MG TAB PO SCH (21:49)
[2017-03-25] MEDS: OXYCODONE/APAP 5/325 TAB PO PRN ×4 (02:47→12:42)
[2017-03-25] MEDS: MDI IH PRN (04:27)
[2017-03-25] MEDS: ALBUTEROL IH PRN (04:27)
[2017-03-25] MEDS: PIPERACILLIN/TAZO 4.5 GM/DEX 100 ML IV SCH ×2 (04:28→12:43)
[2017-03-25 04:34] VITALS: TEMP 97.7; O2SAT 95
[2017-03-25] MEDS: HYDROmorphONE/DILAUDID 1 MG/ML INJ IVP PRN (04:48)
[2017-03-25] MEDS: INSULIN REGULAR HUMAN 100 UNIT/ML UNIT SC SCH ×2 (08:34→11:56)
[2017-03-25] MEDS: LEFLUNOMIDE 20 MG TAB PO SCH (08:39)
[2017-03-25] MEDS: ENOXAPARIN 40 MG/0.4 ML SYR SC SCH (08:39)
[2017-03-25] MEDS: buPROPion XL 150 MG TAB PO SCH (08:40)
[2017-03-25] MEDS: predniSONE 5 MG TAB PO SCH (08:40)
[2017-03-25] MEDS: FOLIC ACID 1 MG TAB PO SCH (08:40)
[2017-03-25] MEDS: SENNOSIDES/DOCUSATE SODIUM TAB PO SCH (08:41)
[2017-03-25] MEDS: PANTOPRAZOLE SODIUM 40 MG TAB PO SCH (08:41)
[2017-03-25] MEDS: Tiotropium Br/Olodaterol Hcl [Stiolto Respimat Inhal Spray] 4 GM IH SCH (09:19)
[2017-03-25 09:24] VITALS: PULSE 73; RESP 18
--- NOTE | 2017-03-25 10:02 | PDIAF ---
- Diagnosis Diagnosis: ventral hernia, colon perforation Code Status: Full Code - Medication Management Discharge Medications: Medications to Continue on Transfer Leflunomide [Arava 20 mg (*)] 20 mg PO DAILY 06/27/14 [Last Taken 02/24/17] Lisinopril [Zestril 10 mg (*)] 10 mg PO DAILY 06/27/14 [Last Taken 02/24/17] Temazepam [Restoril 15 MG (*)] 15 mg PO HS 06/27/14 [Last Taken 02/23/17] Terazosin HCl [Hytrin 2 MG (*)] 6 mg PO HS 06/27/14 [Last Taken 02/23/17] Methotrexate Sodium/Pf [Methotrexate 25 mg/ml Vial] 0.8 ml IJ SA@0800 06/28/14 [ Last Taken 02/18/17] Albuterol [Proventil Inhaler HFA (*)] 1 - 2 puffs IH DAILY PRN 02/20/17 [Last Taken Unknown] C/E/Zn/Cu/OM3/DHA/EPA/LUT/ZEAX [Preservision Areds 2 Softgel] 1 each PO DAILY [Last Taken Unknown] Folic Acid [Folic Acid 1 MG (*)] 800 mcg PO DAILY 02/24/17 [Last Taken Unknown] Tiotropium Br/Olodaterol HCl [Stiolto Respimat Inhal Tyler] 1 puffs IH BID 02/24 [Last Taken 02/24/17] predniSONE 5 mg PO DAILY 02/24/17 [Last Taken 02/24/17] Discharge Medications: Refer to the Discharge Home Medication list for PRN reason. PICC Care - Routine: N/A - Orders Services needed: Registered Nurse, Certified Book Sewing Machine Operator, Physical Therapy, Occupational Therapy Isolation Type: Contact Isolation Diet Recommendation: no restrictions on diet Diet Texture: Regular Texture Diet Weigh Patient: weekly Velez: No Wound Care Instructions: Wound vac sponge needs to be changed every 3 days. Activity/Weight Bearing Restrictions: Ok to ambulate Equipment: Wound vac - Follow Up Care Current Providers and Referrals: DAMION MCCANN [Primary Care Provider] - Amos Butt MD [Medical Doctor] - follow up in 1 week
--- NOTE | 2017-03-25 10:13 | PDDCSUM ---
Discharge Summary Discharge Summary: DISCHARGE SUMMARY Date of Admission February 24 Date of Discharge March 25 DISCHARGE DIAGNOSES -recurrent ventral hernia status post repair - Sigmoid perforation status post washout, open abdomen, sigmoid colectomy with colostomy and subsequent fascial closure HOSPITAL COURSE The patient was taken to the operating room on the morning of the where he underwent recurrent ventral hernia repair with mesh. Postoperatively, the patient developed peritonitis and was found that he had a sigmoid colon perforation was subsequently taken back to the operating room where he was washed out and this was repaired. He was subsequently taken back to the operating room multiple times with an open abdomen with an ABThera in place and eventually taken back to the operating room where he underwent sigmoid colectomy with colostomy and eventually had as fascia closed on the . He has a incisional wound VAC in place over the closed fascia. He had a prolonged hospital course and was subsequently discharged to LTAC on the afternoon of the in stable condition at the time of discharge his abdomen was soft, the wound VAC was in place, his colostomy is functioning appropriately, his pain was well controlled and he was tolerating a regular diet. DISCHARGE MEDICATIONS Please see full med reconciliation in [facility] FOLLOW UP Follow up with Dr. Butt in 10-14 days
[2017-03-25] MEDS: DAPTOmycin 800 MG in NS 50 ML IV SCH (10:28)
--- NOTE | 2017-03-25 10:48 | ASMTCMCOM ---
CM Note CM Note Notes: Pt ready to DC today. stretcher transport set for 1:30. Rn called in report. Final orders faxed. Date Signed: 03/25/2017 10:47 AM Electronically Signed By:Concepcion Sullivan LCSW
[2017-03-25 13:41] VITALS: BP 164/83
--- NOTE | 2017-03-25 16:42 | ASDISCHSUM ---
Discharge Information Plan Status:LTAC Medically Cleared to Leave: Discharge Date:03/25/2017 02:41 PM CM D/C Disposition:Medical Psychotherapist [facility] D/C Disposition:Custodial Facility Projected Discharge Date:03/24/2017 11:00 AM Transportation at D/C:ALS/BLS Discharge Delay Reason: Follow-Up Date:03/24/2017 11:00 AM Discharge Slot: Final Diagnosis:Ventral hernia repair redo, Perf colon, Hypovolemic shock, Resp Failure Placement Information Referral Type:*Home Health Care Services Referral ID:[id number] Provider Name: Address 1: Phone Number: Address 2: Fax Number: City: Selection Factors: State: Referral Type:*Long-Term/SNF Referral ID:[id number] Provider Name: Address 1: Phone Number: Address 2: Fax Number: City: Selection Factors: State: Referral Type:Medical Psychotherapist [facility] Referral ID:[id number] Provider Name:[facility] Address 1:[address] Address 2: City:[place] Selection Factors: State:[place] Patient Contact Information Contact Name:LACY Relationship: Address:[address] City:[facility] Phone: [facility]/Zip Code:[place] [address] Email: Financial Information Financial Class:HMO and PPO Plans Primary Plan Desc:JOE PPO Primary Plan Number:[id number] Secondary Plan Desc:MEDICARE INPATIENT Secondary Plan Number:[id number] Assessment Information [facility] CM Progress Note CM Note CM Note Notes: Pt. is a 76-year-old man s/p a ventral hernia repair. OT recommending HC vs Home. PT not evaluated yet. Per chart, Pt. lives w/ his Blanca. CM to follow for d/c POC. Date Signed: 02/25/2017 02:31 PM Electronically Signed By:Radha Cascone, ASSET PROTECTION REPRESENTATIVE [facility] CM Progress Note CM Note CM Note Notes: Chart reviewed. Patient is s/p ventral hernia repair. Per therapies HHC recommended. Spoke with patient regarding recommendations and he declines HHC at this point. CM available should other needs arise. Date Signed: 02/26/2017 11:06 AM Electronically Signed By:Ramya Avelar RN [facility] CM Progress Note CM Note CM Note Notes: CM spoke w/ TERI Courtney and KUMAR Shaikh regarding d/c POC. CM met w/ pt for dispo planning. Pt is not interested in SNF or HC at this time. Pt reports that he it would be helpful for him to get back on his own schedule. Pt will notify CM if he changes his mind. CM available for changes. Plan: Independent Date Signed: 02/28/2017 12:05 PM Electronically Signed By:TREVIN Lora [facility] CM Progress Note CM Note CM Note Notes: Spoke w/pt re; dc poc. CM discussed PT recommendation of SNF, pt not very interested and prefers to go home. Asked pt if he would like home care but wasn't really understanding the benefit. Pt is perseverating on needing to get back to work stating that he is in a "precarious financial situation". CM asked if I could discuss matter with and pt agreed. CM spoke w/ after she spoke with him re PT/OT recommendations, pt again declines rehab but is ammenable to home care, CM will send referrals. DC Plan: Home Care Date Signed: 03/03/2017 05:22 PM Electronically Signed By:Merissa Atkinson RN [facility] ZAMZAM Progress Note ZAMZAM Note ZAMZAM Note Notes: Patient was extubated today and started working with Therapies. Therapy recommendation at this time is SNF Rehab. Met with , Blanca in "Family Meeting". They live in [facility] and very happy with [facility]. Talked about need for rehab on discharge. Will give Medicare.gov recommendations. Date Signed: 03/07/2017 02:09 PM Electronically Signed By:Brooklynn Zavala LCSW [facility] ZAMZAM Progress Note ZAMZAM Note ZAMZAM Note Notes: Pt will need SNF. CM spoke w/pt and regarding SNF; their first choice is [facility]. Referral sent through [employer]. CM will follow. Date Signed: 03/09/2017 03:11 PM Electronically Signed By:Luba Arguello RN [facility] CM Progress Note CM Note CM Note Notes: Pt accepted to [facility] pending insurance authorization, is aware. Dc not likely until Monday. DC Plan: [facility] Signed: 03/11/2017 03:52 PM Electronically Signed By:Merissa Atkinson RN [facility] CM Progress Note CM Note CM Note Notes: CM sent updates to [facility]. The plan remains the same. Pt will d/c to [facility] when medically stable. Anticipates d/c for [place]. CM to follow. Plan: [facility] Signed: 03/13/2017 02:11 PM Electronically Signed By:TREVIN Lora [facility] CM Progress Note CM Note CM Note Notes: Patient returned to the operating room yesterday for re-exploration and now has an open abdomen with a wound vac in place. Yun from [facility] called for an update. Faxed her recent notes. Patient is needing bed rest currently. D/C date pushed back as further plans cannot be made until we monitor over the next 12-24 hours. [facility]. Yun will check back in with us on Monday. CM will follow. Date Signed: 03/16/2017 03:35 PM Electronically Signed By:Nadia Hallman LCSW [facility] CM Progress Note CM Note CM Note Notes: Patient had another wash out of wound this AM. Has a TYPESETTERS PRINTER, colonoscopy, ID consulting. Plan is for patient to go to [facility] when ready. Date Signed: 03/19/2017 11:43 AM Electronically Signed By:Brooklynn Zavala LCSW [facility] CM Progress Note CM Note CM Note Notes: Patient transferred from ICU to . Discharge plan remains [facility]. I spoke with Gloria and informed her that he will not be ready for discharge for a few days. She will need to re-submit insurance authorization. Updated notes sent. Date Signed: 03/21/2017 04:43 PM Electronically Signed By:Bess Corrales RN [facility] CM Progress Note CM Note CM Note Notes: I sent updated notes to Gloria at [facility] - she then informed me that patient's IV medication costs are prohibitive and the facility can no longer accept him. Per ID, patient's medication regimen is strict (Dapto/Zosyn/Micafungin) and cannot be altered. He will need to be covered by this therapy until 04/03. Consequently, I sent referrals to four LTAC facilities - [facility], [facility], [facility], and [facility]. I spoke with patient's Blanca who wants to visit the facilities. When she choses one, they will have to submit for insurance authorization. This could become a fairly time-consuming process. Blanca still does not feel able to care for patient at home d/t his debility and her inability to help him transfer, move, etc. Hopefully, one of the LTAC facilities will be able to accept him. We will check in with Blanca tomorrow. She is aware that surgery had hoped to discharge him on Monday. Case Management will follow. Date Signed: 03/22/2017 02:38 PM Electronically Signed By:Bess Corrales RN [facility] ZAMZAM Progress Note CM Note CM Note Notes: [facility] all called to say that they could take pt but one of her meds is expensive and [facility] may refuse to cover it. Spoke with pt's about her choice and she prefers [facility]. LM with Sallie in admissions about possibility of pt DC'ing there. have not heard back. CM will continue to follow for DC plan. Date Signed: 03/23/2017 02:10 PM Electronically Signed By:Concepcion Sullivan LCSW [facility] CM Progress Note CM Note CM Note Notes: [facility]. Doc to Doc was completed, transport set up and final orders faxed. Then Blanca was sent to ED compaining if chest pain. Decision made to delay DC until tomorrow[facility], Dr Butt REPAIRER AND CHECKER, RN and [facility] all were notfied. CM to follow. Date Signed: 03/24/2017 03:17 PM Electronically Signed By:Concepcion Sullivan LCSW [facility] CM Progress Note CM Note CM Note Notes: Pt ready to DC today. stretcher transport set for 1:30. Rn called in report. Final orders faxed. Date Signed: 03/25/2017 10:47 AM Electronically Signed By:Concepcion Sullivan LCSW Intervention Information
== END 2017-03-25 14:41 | DRG 329 ==
LOC: FSGY 05:56 → INTOOBSV 10:28 → F3E 10:28 → OBSVTOIN 02-25 12:34 → F2N 03-04 08:35 → F3E 03-08 17:36 → F2N 03-14 23:49 → F1N 03-21 10:52
PROVIDERS: ADMIT Surgery; ATTEND Surgery
PROC: 0WUF0JZ Supplement Abdominal Wall with Synthetic Substitute, Open Approach (ICD-10-PCS; principal; 2017-02-24 07:15)
PROC: 0WPF0JZ Removal of Synthetic Substitute from Abdominal Wall, Open Approach (ICD-10-PCS; principal; 2017-02-24 07:15)
PROC: 0DB28ZX Excision of Middle Esophagus, Via Natural or Artificial Opening Endoscopic, Diagnostic (ICD-10-PCS; 2017-03-04)
PROC: 04HK33Z Insertion of Infusion Device into Right Femoral Artery, Percutaneous Approach (ICD-10-PCS; 2017-03-04)
PROC: 30233N1 Transfusion of Nonautologous Red Blood Cells into Peripheral Vein, Percutaneous Approach (ICD-10-PCS; 2017-03-04)
PROC: 0HB7XZZ Excision of Abdomen Skin, External Approach (ICD-10-PCS; 2017-03-04 17:00)
PROC: 0WPF0JZ Removal of Synthetic Substitute from Abdominal Wall, Open Approach (ICD-10-PCS; 2017-03-04 17:00)
PROC: 3E1M38Z Irrigation of Peritoneal Cavity using Irrigating Substance, Percutaneous Approach (ICD-10-PCS; 2017-03-04 17:00)
PROC: 0DQN0ZZ Repair Sigmoid Colon, Open Approach (ICD-10-PCS; 2017-03-04 17:00)
PROC: 2W13X6Z Compression of Abdominal Wall using Pressure Dressing (ICD-10-PCS; 2017-03-04 17:00)
PROC: 02HV33Z Insertion of Infusion Device into Superior Vena Cava, Percutaneous Approach (ICD-10-PCS; 2017-03-10)
PROC: 0W9J0ZZ Drainage of Pelvic Cavity, Open Approach (ICD-10-PCS; 2017-03-14)
PROC: 2W13X6Z Compression of Abdominal Wall using Pressure Dressing (ICD-10-PCS; 2017-03-14)
PROC: 0D1N0Z4 Bypass Sigmoid Colon to Cutaneous, Open Approach (ICD-10-PCS; 2017-03-16 09:15)
PROC: 0DBN0ZZ Excision of Sigmoid Colon, Open Approach (ICD-10-PCS; 2017-03-16 09:15)
PROC: 3E1M38Z Irrigation of Peritoneal Cavity using Irrigating Substance, Percutaneous Approach (ICD-10-PCS; 2017-03-19)
PROC: 0JQ80ZZ Repair Abdomen Subcutaneous Tissue and Fascia, Open Approach (ICD-10-PCS; 2017-03-19)
DX: K43.2 Incisional hernia without obstruction or gangrene (principal); J96.21 Acute and chronic respiratory failure with hypoxia; K63.1 Perforation of intestine (nontraumatic); K65.1 Peritoneal abscess; I50.31 Acute diastolic (congestive) heart failure; N17.9 Acute kidney failure, unspecified; D62 Acute posthemorrhagic anemia; K92.1 Melena; I48.91 Unspecified atrial fibrillation; K20.9 Esophagitis, unspecified; J44.1 Chronic obstructive pulmonary disease with (acute) exacerbation; J18.9 Pneumonia, unspecified organism; G89.18 Other acute postprocedural pain; R73.9 Hyperglycemia, unspecified; R57.1 Hypovolemic shock; E87.5 Hyperkalemia; I95.9 Hypotension, unspecified; R33.9 Retention of urine, unspecified; F32.9 Major depressive disorder, single episode, unspecified; S46.009A Unspecified injury of muscle(s) and tendon(s) of the rotator cuff of unspecified shoulder, initial encounter; X58.XXXA Exposure to other specified factors, initial encounter; M06.9 Rheumatoid arthritis, unspecified; N40.0 Benign prostatic hyperplasia without lower urinary tract symptoms; I25.10 Atherosclerotic heart disease of native coronary artery without angina pectoris; I11.0 Hypertensive heart disease with heart failure; H35.30 Unspecified macular degeneration; Z79.52 Long term (current) use of systemic steroids; Z86.711 Personal history of pulmonary embolism; Z87.891 Personal history of nicotine dependence; Z85.038 Personal history of other malignant neoplasm of large intestine
CPT/HCPCS: 82947-QW; 87186-90; 97110-GP; 97112-GP; 97116-GP; 97161-GP; 97164-GP; 97165-GO; 97168-GO; 97530-GO; 97530-GP; 97535-GO; C1751; C1781; G8978-GP-CJ; G8978-GP-CM; G8979-GP-CI; G8979-GP-CK; G8980-GP-CK; G8987-GO-CL; G8987-GO-CM; G8988-GO-CI; G8988-GO-CJ; J0171; J0330; J0690; J0735; J0878; J1100; J1170; J1450; J1650; J1815; J1885; J1940; J2060; J2248; J2250; J2310; J2370; J2405; J2543; J2704; J2920; J2930; J2997; J3010; J7512; J7613; P9016; P9017; P9041; Q4130; Q9967

== ENCOUNTER 2017-04-18 08:16 | Day surgery (SDC) | payer OTHER ==
[2017-04-18] MEDS ORDERED: ERTAPENEM 1 GM VIAL IV ONE (08:24)
[2017-04-18] MEDS ORDERED: LR 1,000 ML IV ONE (08:28)
[2017-04-18] MEDS ORDERED: LIDOCAINE 1% 2 ML INJ ID PRN (08:28)
[2017-04-18] MEDS ORDERED: BUPIVACAINE 0.5% 10 ML SDV ONE (10:19)
[2017-04-18] MEDS ORDERED: MIDAZOLAM 2 MG/2 ML VIAL IVP ONE (10:21)
--- NOTE | 2017-04-18 10:21 | PDANEPAE ---
ANE Past Medical History - Cardiovascular History Hx Hypertension: Yes Hx Arrhythmias: Yes Hx Chest Pain: No Hx Coronary Artery / Peripheral Vascular Disease: Yes Hx CHF / Valvular Disease: No Hx Palpitations: No Cardiovascular History Comment: murmur. a-fib - Pulmonary History Hx COPD: Yes Hx Asthma/Reactive Airway Disease: No Hx Recent Upper Respiratory Infection: No Hx Oxygen in Use at Home: Yes O2 in Use at Home (L/minute): 2L at night Hx Sleep Apnea: Yes Sleep Apnea Screening Result - Last Documented: Positive Pulmonary History Comment: PE - Neurologic History Hx Cerebrovascular Accident: No Hx Seizures: No Hx Dementia: No - Endocrine History Hx Diabetes: No - Renal History Hx Renal Disorders: No Renal History Comment: bph - Liver History Hx Hepatic Disorders: No - Neurological & Psychiatric Hx Hx Neurological and Psychiatric Disorders: No - Cancer History Hx Cancer: Yes Cancer History Comment: colon - Congenital Disorder History Hx Congenital Disorders: No - GI History Hx Gastrointestinal Disorders: Yes Gastrointestinal History Comment: colon ca - Other Health History Other Health History: missing teeth. rhematid arthritis - controlled. anemia - Chronic Pain History Chronic Pain: No (ra controlle) - Surgical History Prior Surgeries: 09/24/15 VENTRAL HERNIA REPAIR. mult hernia surg 01/23/15, with dr velarde. colectomy 6 y ago. lami/fusion 09/2009. dental implant ANE Review of Systems Review of Systems: - Exercise capacity METS (RN): 3 METS ANE Patient History - Allergies Allergies/Adverse Reactions: No Allergies [NKDA] Allergy (Verified 09/22/15 16:12) - Home Medications Home Medications: Leflunomide [Arava 20 mg (*)] 20 mg PO DAILY 06/27/14 [Last Taken 02/24/17] Lisinopril [Zestril 10 mg (*)] 10 mg PO DAILY 06/27/14 [Last Taken 04/17/17] Temazepam [Restoril 15 MG (*)] 15 mg PO HS 06/27/14 [Last Taken 04/17/17] Terazosin HCl [Hytrin 2 MG (*)] 6 mg PO HS 06/27/14 [Last Taken 04/17/17] Methotrexate Sodium/Pf [Methotrexate 25 mg/ml Vial] 0.8 ml IJ SA@0800 06/28/14 [ Last Taken 02/18/17] Albuterol [Proventil Inhaler HFA (*)] 1 - 2 puffs IH DAILY PRN 02/20/17 [Last Taken 04/04/17] C/E/Zn/Cu/OM3/DHA/EPA/LUT/ZEAX [Preservision Areds 2 Softgel] 1 each PO DAILY [Last Taken 04/17/17] Folic Acid [Folic Acid 1 MG (*)] 800 mcg PO DAILY 02/24/17 [Last Taken 04/17/17] Tiotropium Br/Olodaterol HCl [Stiolto Respimat Inhal [place]] 1 puffs IH BID 02/24 [Last Taken 04/17/17] predniSONE 5 mg PO DAILY 02/24/17 [Last Taken 04/17/17] Bupropion HCl 75 mg BID 04/18/17 [Last Taken 04/17/17] Celebrex 100 mg BID 04/18/17 [Last Taken 04/17/17] Colace 100 MG (*) 100 mg BID 04/18/17 [Last Taken 04/17/17] Cymbalta 30 MG (*) mg BID 04/18/17 [Last Taken 04/17/17] Enoxaparin Sodium 40 mg SQ HS 04/18/17 [Last Taken 04/16/17] Ferrous Sulfate 325 mg BID 04/18/17 [Last Taken 04/17/17] Pantoprazole Sodium 40 mg HS 04/18/17 [Last Taken 04/17/17] Percocet 5-325 mg Tablet 04/18/17 [Last Taken 04/17/17] - NPO status NPO Since - Liquids (Date): 04/17/17 NPO Since - Liquids (Time): 21:00 NPO Since - Solids (Date): 04/17/17 NPO Since - Solids (Time): 19:30 - Smoking Hx Smoking Status: Former smoker - Family Anes Hx Family Hx Anesthesia Complications: none ANE Labs/Vital Signs - Vital Signs Blood Pressure: 118/70 Heart Rate: 72 Respiratory Rate: 18 O2 Sat (%): 99 Height: 182.88 cm Weight: 80.739 kg ANE Physical Exam - Airway Neck exam: decreased ROM Mallampati Score: Class 3 Mouth exam: poor dentition - Pulmonary Pulmonary: reduced air movement, expiratory wheeze - Cardiovascular Cardiovascular: regular rate and rhythym - ASA Status ASA Status: III ANE Anesthesia Plan Anesthesia Plan: general endotracheal anesthesia
[2017-04-18] MEDS ORDERED: fentaNYL 100 MCG/2 ML INJ ONE ×2 (10:30→12:16)
[2017-04-18] MEDS ORDERED: PROPOFOL 200 MG/20 ML VIAL ONE (10:30)
[2017-04-18] MEDS ORDERED: ROCURONIUM 50 MG/5 ML VIAL ONE (10:31)
[2017-04-18] MEDS ORDERED: LIDOCAINE 2% 100 MG/5 ML SYR ONE (10:31)
--- NOTE | 2017-04-18 10:34 | PDHPUP ---
History & Physical Update H&P update statement: This history and physical update is based on an assessment of the patient which was completed after admission or registration (within 24 hours), but prior to the surgery/procedure. H&P update: H&P reviewed & patient examined, no change in patient's condition since H&P completed
[2017-04-18] MEDS ORDERED: SUGAMMADEX SODIUM 200 MG/2 ML VIAL IVP ONE (10:36)
[2017-04-18] MEDS ORDERED: THROMBIN (BOVINE) 5,000 UNIT VIAL TP ONE (10:55)
[2017-04-18] MEDS ORDERED: CALCIUM CHLORIDE 1 GM/10 ML INJ ONE (10:55)
[2017-04-18] MEDS ORDERED: NALOXONE HCL 0.4 MG/ML INJ IVP PRN (11:58)
[2017-04-18] MEDS ORDERED: ONDANSETRON 4 MG/2 ML VIAL IVP PRN (11:58)
--- NOTE | 2017-04-18 11:59 | POSTANESTH ---
Post Anesthetic Evaluation Cardiovascular Status: Similar to Pre-Op Cond Respiratory Status: Similar to Pre-op Cond. Level of Consciousness/Mental Status: Mildly Sleepy, Arousable Pain Control: Adequate, Prn Tx Ordered Nausea/Vomiting Control: Adequate, Prn Tx Ordered Complications Possibly Related to Anesthesia: None Noted
[2017-04-18] MEDS: fentaNYL 100 MCG/2 ML INJ IVP PRN ×2 (12:17→12:27)
--- NOTE | 2017-04-18 12:18 | POSTOPPROG ---
Post Op Note Date of Operation: 04/18/17 Surgeon: Amos Butt [employer] Manager: Jyoti Henderson Anesthesiologist: Miguel Ángel Meneses Anesthesia: GET(General Endotracheal) Pre-op Diagnosis: open abdominal wound Post-op Diagnosis: same Procedure: abdominal wall debridement with delayed primary closure c PRP Findings: fascia intact Inf/Abcess present in the surg proc area at time of surgery?: No EBL: Minimal Complications: none Drains: Solitario Sorensen
[2017-04-18 12:20] VITALS: TEMP 98.2
[2017-04-18 13:01] VITALS: PULSE 71
[2017-04-18] MEDS ORDERED: OXYCODONE/APAP 5/325 TAB ONE (13:32)
[2017-04-18] MEDS ORDERED: oxyCODONE IR 5 MG TAB PO PRN (13:41)
[2017-04-18 13:58] VITALS: BP 132/79; RESP 16; O2SAT 94
--- NOTE | 2017-04-24 16:07 | GOP ---
[f rep st] OPERATIVE REPORT DATE OF OPERATION: 04/18/2017 SURGEON: Amos Butt MD CERTIFIED WELLNESS PROGRAM COORDINATOR: YOGESH Pham ANESTHESIOLOGIST: Dr. Meneses. PREOPERATIVE DIAGNOSIS: Open abdominal wound. POSTOPERATIVE DIAGNOSIS: Open abdominal wound. PROCEDURE PERFORMED: Abdominal wall wound debridement with advancement flap, delayed primary closure. Instillation of platelet-rich plasma. FINDINGS: Clean granulating wound with fascia intact DESCRIPTION OF PROCEDURE: The patient was taken to the operating room. He received satisfactory general endotracheal anesthesia by Dr. Meneses. He was prepped and draped in the usual sterile fashion. Wound edges were undermined back along the fascial planes, and the wound was debrided where necessary. Wound edges were advanced. A large 15-round silicone ALONDRA drain was brought out through a separate stab incision. The wound was sprayed with some protein-rich plasma and closed in layers using 2-0 Vicryl interrupted sutures for the subcutaneous tissue and skin lisa for the skin. The wound was infiltrated with 0.5% Marcaine. He tolerated the procedure well. Blood loss from the procedure was negligible. There were no complications. /[id number]/MODL MTDD
== END 2017-04-18 13:54 ==
LOC: FSGY 08:16 → EDSTATUS 10:15 → FSGY 13:54
PROVIDERS: ATTEND Surgery
PROC: 0HD7XZZ Extraction of Abdomen Skin, External Approach (ICD-10-PCS; principal; 2017-04-18 10:15)
DX: K65.1 Peritoneal abscess (principal); I10 Essential (primary) hypertension; I48.91 Unspecified atrial fibrillation; Z86.711 Personal history of pulmonary embolism; N40.0 Benign prostatic hyperplasia without lower urinary tract symptoms; Z85.038 Personal history of other malignant neoplasm of large intestine; M06.9 Rheumatoid arthritis, unspecified; Z87.891 Personal history of nicotine dependence
CPT/HCPCS: J1335; J2001; J2250; J2704; J3010